=== PATIENT | female | born 1975 | race Caucasian/White ===

== ENCOUNTER → 2017-12-18 19:05 | Outpatient (CLI) | payer BC, SELFPAY | PROVIDERS: Visit Provider Otolaryngology Otolaryngology/Facial Plastic Surgery | DX: J32.9 Chronic sinusitis, unspecified (principal) | CPT/HCPCS: 87070; 87205 ==

== ENCOUNTER 2018-03-30 20:46 | Emergency (ER) | payer BC, SELFPAY ==
[2018-03-30 20:46] VITALS: BP 130/72; PULSE 76; RESP 18; TEMP 36.6; O2SAT 99; BMI 21.2
--- NOTE | 2018-03-30 22:30 | ED.VISSUMM ---
- ER Visit Summary Date of Service: 03/30/18 Chief Complaint: Dental pain History of Present Illness: The patient is a 42 F with a dental extraction performed on March 21 at the [facility]. Patient states she has had pain since that time. She started taking some amoxicillin that she had left over at home 5 days ago. She presents with continued pain and foul taste in her mouth. She has not gone back to see her dentist. Patient believes that she has dry socket. Physical Examination: Vital signs are unremarkable. Head and neck examination reveals no obvious facial edema or erythema. Intraoral examination reveals left mandibular area near the first premolar site with a recent extraction. There is a very small opening remaining to the gumline. There is mild edema and no significant erythema. There is no drainage. She has no trismus. There is no submandibular fullness or evidence of abscess. She has a strong voice and is tolerating secretions well. Trachea is midline with no cervical lymphadenopathy appreciated. Heart is regular rate and rhythm without murmur. Lung sounds are clear. Test Results: [] Emergency Department Course and Treatment: At this time the extraction site is not large enough for dry socket paste. It appears to be healing well. She will be switched to clindamycin and will be given a home pack of [place] only. Following this she can continue Tylenol and ibuprofen. She is to follow-up with the dental clinic on Monday. Treatment Plan: [] Disposition: Discharge Impression: Odontalgia This note was generated with [employer] dictation software. It may contain incorrect words, spelling, and punctuation that were not noted in review of the chart prior to signing ED Disposition - Plan for ED Patient: Disposition: Home or Assisted Living Chief Complaint: Dental Instructions: ED Tooth Pain Prescriptions: Clindamycin [Cleocin] 300 mg PO 4X/DAY #80 capsule Referrals: Tana Mcclain [NON-STAFF] - 2 Days Additional Instructions: Follow-up with the dental clinic on Monday.
--- NOTE | 2018-03-30 22:33 | DCINST.ED_ITS ---
ED Disposition - Plan for ED Patient: Disposition: Home or Assisted Living Chief Complaint: Dental Instructions: ED Tooth Pain Prescriptions: Clindamycin [Cleocin] 300 mg PO 4X/DAY #80 capsule Referrals: Tana Mcclain [NON-STAFF] - 2 Days Additional Instructions: Follow-up with the dental clinic on Monday.
[2018-03-30 22:49] VITALS: BP 116/70; PULSE 80; RESP 14; O2SAT 99
[2018-03-30] MEDS: Clindamycin HCl 150 MG Capsule 300 MG PO (22:56)
[2018-03-30] MEDS: HYDROcodone Bitartrate/Apap 5/325 Tablet PO (22:56)
== END 2018-03-30 22:58 | disposition home or self-care (01) ==
PROVIDERS: Emergency Provider Emergency Medicine; Family Provider Family Medicine; PCP Family Medicine
DX: K08.89 Other specified disorders of teeth and supporting structures (principal); Z98.818 Other dental procedure status; Z87.442 Personal history of urinary calculi; Z90.710 Acquired absence of both cervix and uterus; Z72.0 Tobacco use
CPT/HCPCS: 99282

== ENCOUNTER 2019-04-08 19:11 | Emergency (ER) | payer BC, SELFPAY ==
[2019-04-08] VITALS (7 sets, daily range): BP systolic 127–136; BP diastolic 80–81; PULSE 80–84; RESP 15–18; TEMP 36.4–36.9; O2SAT 96–97; BMI 21.1
--- NOTE | 2019-04-08 19:27 | ED.DCSUM_ITS ---
History of Present Illness Chief Complaint: Flank Pain Informant: Patient Onset: Days - Approximately 4 days ago Context: Sudden Onset Timing: Continuous - Continuous central low back pain, Intermittent - Initially Quality: Pain Location: Central low back Current Severity: Mild Maximum Severity: Moderate Worsened by: Movement Relieved by: Nothing Associated Symptoms: Nausea, vomiting, dysuria, frequency and hematuria Narrative: Patient is a 43-year-old woman with history of renal/ureteral calculi in the past. She was sent from urgent care because of concern for ureteral calculi. She reports urinary symptoms are several days ago. She now complains of bilateral central low back pain. Movement causes the pain to be worse. She denies fever, chills night sweats. She has had nausea and vomiting. She states she does not feel well. There is no history of trauma. She is status post hysterectomy. Prior similar symptoms: Yes - Kidney infection Recent Illness/Hospitalization: No - Past Medical History (1) History of ureterolithiasis Status: Acute (2) History of hyperactive airway disease Status: Acute Past Medical History - Allergies and Home Meds Allergies/Adverse Reactions: Allergies bupropion HCl [From Wellbutrin] Adverse Reaction (Verified 04/08/19 19:13) Other doxycycline Adverse Reaction (Verified 04/08/19 19:13) Other tramadol Adverse Reaction (Verified 04/08/19 19:13) Other Primary Care Physician: Scott Gann III, MD [Primary Care Provider] - Prior records reviewed: Yes Surgical History: hysterectomy Lives: Spouse/ Significant Other Smoking Status: Current every day smoker Alcohol: Occasional Drugs: None Review of Systems General: Reports: Chills, Fever, Subjective Eyes: Denies: Visual changes - bilaterally, Blurred Vision - bilaterally ENT: Denies: Bilateral ear pain, Rhinorrhea, Sore throat Cardiovascular: Denies: Chest pain, Palpitations Respiratory: Denies: Dyspnea, Cough, Sputum, Dyspnea on exertion Gastrointestinal: Reports: Abdominal pain, Nausea, Vomiting. Denies: Diarrhea, Constipation, Melena, Hematochezia Genitourinary: Reports: Dysuria, Hematuria, Frequency, -, - Musculoskeletal: Reports: Back pain. Denies: Myalgias, Arthralgias, Neck pain, Swelling, Extremity Pain Neurological: Reports: Weakness. Denies: Headache, Parasthesia, Numbness Endocrine: Denies: Polyuria, Polydipsia Hematologic: Denies: Easy bruising, Easy bleeding Allergy: Denies: Uticaria Physical Exam Vital Signs/Narrative: Vital Signs Temp Pulse Resp BP Pulse Ox 04/08/19 19:13 97.5 F L 84 18 136/81 H 96 Inital Vital Signs reviewed: Yes General: Well nourished, Well developed, - - Appears ill but not toxic Head: Normocephalic, Atraumatic Eyes: Perrl, EOMI. Negative for: Pale conjunctiva, Scleral icterus, - ENT: Moist mucous membranes, No rhinorrhea Cardiovascular: Regular rate, Regular rhythm, No murmurs, Normal S1, Normal S2 Respiratory: No distress, CTA bilaterally Abdomen: Soft, Nondistended, Normal bowel sounds, No masses, Tender - Suprapubic region. Negative for: Hepatomegaly, Splenomegaly, Mass, Pulsatile mass, Ventral hernia, Inguinal hernia, Psoas sign, Obturator sign, Rovsig's sign Rectal: Deferred Back: Normal Inspection. Negative for: Nontender, CVA tenderness, Spinal tenderness Extremities: Nontender, No edema Skin: Normal color, No rash Neurological: Alert, Oriented x3, Cranial nerves II-XII grossly intact, Normal Strength, Normal Sensation, Normal Gait Psychological: Normal affect, Normal Mood Diagnostic/Tx/Re-eval Laboratory Results 04/08/19 04/08/19 04/08/19 19:31 19:31 20:05 WBC 13.1 H RBC 4.46 Hgb 14.8 Hct 43.9 MCV 98.4 MCH 33.2 H MCHC 33.7 RDW 13.0 RDW Differential 47.2 H Plt Count 174 MPV 13.3 H Immature Gran % (Auto) 0.200 Neut % (Auto) 60.9 Lymph % (Auto) 29.5 [place] % (Auto) 6.6 Eos % (Auto) 2.5 Baso % (Auto) 0.3 Absolute Neuts (auto) 8.0 H Absolute Lymphs (auto) 3.86 Total Counted Not Reportable Sodium 139 Potassium 4.5 Chloride 108 H Carbon Dioxide 25.0 Anion Gap 6 BUN 13 Creatinine 0.82 Estim Creat Clear Calc 77.96 Est GFR (MDRD) Af Amer 96 Est GFR (MDRD) Non-Af 80 BUN/Creatinine Ratio 15.8 Glucose 118 H Calcium 9.5 Urine Color Yellow Urine Clarity Sl. Cloudy Urine pH 6.5 Ur Specific [place] 1.015 Urine Protein Negative Urine Glucose (UA) Normal Urine Ketones Negative Urine Occult Blood 250 H Urine Nitrite Negative Urine Bilirubin Negative Urine Urobilinogen Normal Ur Leukocyte Esterase Negative Urine RBC 0-5 SEEN Urine WBC 0-5 SEEN Ur Squamous Epith Cells 0-5 SEEN Urine Bacteria RARE Fine Granular Casts 0-5 SEEN Urine Mucus 0 SEEN - Medical Decision Making With complaint of dysuria, frequency and hematuria that started 4 to 5 days ago and suprapubic discomfort and low back pain suspect cystitis. This may represent subclinical pyelonephritis. Doubt ureterolithiasis. IV was established. She was treated with Zofran for her nausea and vomiting and Toradol for her pain. Basic metabolic panel, CBC and UA were obtained. Patient was questioned regarding burning with urination. She she reports I feel like I have burning. She denies vaginal discharge. She denies vaginal lesion. UA is unremarkable. Patient was reexamined and she has mild lateral paralumbar discomfort with palpation. Movement causes her pain. She has no neurovascular findings. No radicular pain. Negative straight leg test. Gait observed no foot drop. Will treat with oral analgesics. ED Disposition - Plan for ED Patient: Disposition: Home or Assisted Living Diagnosis: Acute midline low back pain without sciatica Instructions: ED Low Back Pain Injury Prescriptions: Hydrocodone Bitart/Apap 5-325 [[place] 5MG-325MG] 1 tab PO Q6H PRN PRN 3 Days #10 tab PRN Reason: Pain Naproxen [Naprosyn] 500 mg PO BID #14 tab Referrals: Scott Gann III, MD [Primary Care Provider] - 1 Week if not improving
[2019-04-08] MEDS: 0.9% Normal Saline 1,000 ML 250 ML IV (19:32)
[2019-04-08] MEDS: Ondansetron 4 MG/2 ML Vial IV (19:32)
[2019-04-08] MEDS: Ketorolac 30 MG/ML Syringe 15 MG IV (19:32)
[2019-04-08 19:52] LABS: Absolute Lymphocyte Count 3.86 X10^3/ul (0.83-4.51); Basophil# 0.04 X10^3/uL; Basophil% 0.3 % (0-1); Eosinophil# 0.33 X10^3/uL; Eosinophils% 2.5 % (0-5); Hematocrit 43.9 % (37-47); Hemoglobin 14.8 g/dl (12.0-15.0); Lymphocyte # 3.86 X10^3/ul (4.0); Lymphocyte % 29.5 % (19-41); Mean Corp Hgb Conc 33.7 g/gl (32-36); Mean Corpuscular Hgb 33.2 pg (27.0-32.0); Mean Corpuscular Volume 98.4 fL (81-99); Mean Platelet Vol. 13.3 fl (6.2-12.0); Monocyte# 0.86 X10^3/uL; Monocyte% 6.6 % (0-10); Neutrophil # 7.97 X10^3/uL (2.7-7.7); Neutrophil % 60.9 % (47-70); Platelet Count 174 K/mm3 (150-450); RBC Distribution Width SD 47.2 fl (35.1-43.9); Red Blood Count 4.46 M/mm3 (4.2-5.4); White Blood Count 13.1 K/mm3 (4.4-11.0)
[2019-04-08 19:53] LABS: POSITIVE COUNT NO; POSITIVE DIFFERENTIAL NO; POSITIVE MORPHOLOGY NO
[2019-04-08 20:00] LABS: Anion Gap 6 (5-15); BUN 13 mg/dL (7-18); BUN/Creat Ratio 15.8 RATIO (10-20); Calcium,Total 9.5 mg/dL (8.5-10.1); Chloride 108 mmol/L (98-107); Creatinine, Serum 0.82 mg/dL (0.55-1.02); EST Glomerular Filtration Rate 80 mL/min (>60); Est Glom Filt Rate - Afr Amer 96 mL/min (>60); Estimated Creatinine Clearance 77.96 ml/min; Glucose 118 mg/dL (74-106); Potassium 4.5 mmol/L (3.5-5.1); Sodium Level 139 mmol/L (136-145)
[2019-04-08 20:33] LABS: Mucous, Urine 0 SEEN /hpf (<or=2+)
[2019-04-08 21:02] LABS: Color, Urine Yellow (Yellow); Glucose, Dipstick Normal (Normal); Ketone-Dipstick Negative (Negative); Leukocyte Esterase-Dipstick Negative /ul (Negative); Nitrite-Dipstick Negative (Negative); Occult Blood-Urine 250 /ul (Negative); Protein-Dipstick Negative (Negative); Specific Gravity, Urine 1.015 (1.002-1.030); Urine Bilirubin Dipstick Negative (Negative); Urine Clarity Sl. Cloudy (Clear); Urine Urobilinogen Normal (Normal); Urine pH 6.5 (5.0 - 8.0)
[2019-04-08 21:04] LABS: Squamous Epithelial Cells - UA 0-5 SEEN /hpf (5-10)
[2019-04-08] MEDS: Morphine 4 MG/ML Syringe IV (21:06)
[2019-04-08 21:07] LABS: Fine Granular Cast- Urine 0-5 SEEN /lpf (0-5)
[2019-04-08 21:08] LABS: Bacteria RARE /hpf (None Seen); White Blood Cells 0-5 SEEN /hpf (0-5)
[2019-04-08 21:09] LABS: Red Blood Cells-Urine 0-5 SEEN /hpf (0-5)
== END 2019-04-08 22:00 | disposition home or self-care (01) ==
PROVIDERS: Emergency Provider Emergency Medicine; Family Provider Family Medicine; PCP Family Medicine
DX: M54.5 Low back pain (principal); R11.2 Nausea with vomiting, unspecified; R30.0 Dysuria; R31.9 Hematuria, unspecified; R35.0 Frequency of micturition; R10.9 Unspecified abdominal pain; R53.1 Weakness; Z87.442 Personal history of urinary calculi; F17.200 Nicotine dependence, unspecified, uncomplicated
CPT/HCPCS: 80048; 81001; 85025; 96361; 96374; 96375; 99283; J7030; A4216; J2405

== ENCOUNTER 2021-08-26 20:05 | Emergency (ER) | payer BC, SELFPAY ==
[2021-08-26 20:06] VITALS: BP 160/96; PULSE 96; RESP 16; TEMP 36.6; O2SAT 97; BMI 20.6
[2021-08-26 20:25] VITALS: O2SAT 97
--- NOTE | 2021-08-26 20:30 | RAD_ITS ---
INDICATION: cough EXAMINATION/TECHNIQUE: X-RAY - XR Chest 1 View COMPARISON: None. FINDINGS: LINES/DEVICES: None. LUNGS: Symmetric normal lung volumes. No airspace opacity or abnormal interstitial pattern. No nodule or mass. No pleural effusion or pneumothorax. MEDIASTINUM AND CARDIOVASCULAR STRUCTURES: Normal size and contour of the cardiomediastinal silhouette. No evidence of pulmonary vascular congestion. BONES AND SOFT TISSUES: No abnormality within limits of the exam. RAD/Chest 1 View (Portable) IMPRESSION: 1. No radiographic evidence of acute cardiopulmonary disease. Electronically Signed: Thom Cristina DO at 21:47 EDT Tel , Service support ,
[2021-08-26] MEDS: 0.9% Normal Saline 1,000 ML 999 ML IV (20:49)
[2021-08-26] MEDS: dexAMETHasone 10 MG/ML Vial IV (20:49)
[2021-08-26 20:50] LABS: Absolute Lymphocyte Count 2.64 X10^3/uL (0.83-4.51); Absolute Neutrophil Count 2.7 X10^3/uL (2.0-7.7); Basophil# 0.03 X10^3/uL; Basophil% 0.5 % (0-1); Eosinophil# 0.18 X10^3/uL; Hematocrit 44.2 % (37-47); Hemoglobin 14.6 g/dL (12.0-15.0); Lymphocyte # 2.64 X10^3/ul (0.83-4.51); Lymphocyte % 43.8 % (19-41); Mean Corpuscular Hgb 34.4 pg (27.0-32.0); Mean Platelet Vol. 11.4 fl (6.2-12.0); Monocyte% 8.3 % (0-10); NRBC Flagged by Analyzer 0 % (0-5); Neutrophil # 2.65 X10^3/uL (2.7-7.7); Neutrophil % 43.9 % (47-70); Platelet Count 133 K/mm3 (150-450); RBC Distribution Width CV 13.2 % (11.6-14.6); RBC Distribution Width SD 50.1 fl (35.1-43.9); Red Blood Count 4.25 M/mm3 (4.2-5.4)
[2021-08-26 21:02] LABS: Anion Gap 6 (5-15); BUN 5 mg/dL (7-18); BUN/Creat Ratio 10.7 RATIO (10-20); Calcium,Total 8.2 mg/dL (8.5-10.1); Chloride 113 mmol/L (98-107); Creatinine, Serum 0.47 mg/dL (0.55-1.02); EST Glomerular Filtration Rate 152 mL/min (>60); Est Glom Filt Rate - Afr Amer 183 mL/min (>60); Estimated Creatinine Clearance 131.39 ml/min; Glucose 113 mg/dL (74-106); Potassium 3.6 mmol/L (3.5-5.1); Sodium Level 143 mmol/L (136-145)
--- NOTE | 2021-08-26 21:06 | EDS_ITS ---
HPI History of Present Illness Chief Complaint: Shortness of Breath Narrative Narrative: Patient is a 45-year-old female who states for the past week she has had mild congestion and cough with upset stomach such as loose stool diarrhea as well as increased muscle aches and fatigue. She states that she was tested in urgent care recently and is positive for Covid. She feels like her symptoms are worsening and secondary to this comes in for evaluation PFSH PFS Home Medications albuterol sulfate [Ventolin Hfa (SP)] 2 puff INHALATION Q4H PRN PRN 01/28/17 [History Last Taken Unknown] hydroxyzine HCl 25 mg PO PRN PRN 04/08/19 [History Last Taken Unknown] naproxen 500 mg PO BID #14 tab 04/08/19 [Rx Last Taken Unknown] omeprazole 20 mg PO DAILY 04/08/19 [History Last Taken Unknown] dexamethasone [Decadron] 6 mg PO DAILY #10 tab 08/26/21 [Rx Last Taken Unknown] hydrocodone-homatropine [Hycodan (with homatropine)] 5 ml PO Q6H PRN 7 Days #140 ml 08/26/21 [Rx Last Taken Unknown] Allergy/AdvReac Type Severity Reaction Status Date / Time bupropion HCl AdvReac Other Verified 04/08/19 19:13 [From Wellbutrin] doxycycline AdvReac Other Verified 04/08/19 19:13 tramadol AdvReac Other Verified 04/08/19 19:13 Social History Smoking Status: Current every day smoker tobacco type: cigarettes ROS ROS ED Constitutional Constitutional ED: Denies chills or fever(s) ENT ENT ED: Reports rhinorrhea and sore throat Cardiovascular Cardiovascular: Denies chest pain Respiratory/Chest Respiratory/Chest: Reports cough and dyspnea Gastrointestinal Gastrointestinal: Reports diarrhea and nausea; Denies abdominal pain or vomiting Genitourinary Genitourinary ED: Denies dysuria Musculoskeletal Musculoskeletal: Reports myalgias Integumentary Denies rash Neurologic Neurologic: Reports headache(s) Hematologic/Lymphatic Hematologic/Lymphatic: Denies easy bleeding or easy bruising EXAM Physical Exam Const Vital Signs: 08/26/21 20:06 08/26/21 20:25 Temperature 97.8 F Temperature Source Temporal Pulse Rate 96 Respiratory Rate 16 Respiratory Effort Non-Labored Short of Breath Blood Pressure 160/96 H Blood Pressure Mean 117 Pulse Ox 97 Oxygen Delivery Method Room Air Room Air Positive well nourished and well developed General Appearance ED: well developed HEENT HEENT Narrative: Mucous membranes are dry and tacky and there is cobblestoning present in the posterior pharynx without airway edema or compromise Eyes PERRL and EOMs intact bilaterally Neck supple Neck Narrative: Positive anterior cervical lymphadenopathy noted Resp normal respiratory effort Resp Narrative: Is are diminished throughout with faint expiratory wheeze but no signs of respiratory distress Cardio regular rate and regular rhythm GI non-tender and non-distended GI Narrative: Bowel sounds are hyperactive without voluntary guarding or rigidity Palpation: soft Extremity normal to inspection Extremity Narrative: No asymmetric edema no pitting edema negative Homans' sign bilaterally Neuro oriented x3 and CN's II-XII intact bilaterally Sensorium / Orientation: alert Motor Exam: strength 5/5 throughout Psych Mood & Affect: anxious Skin no rashes or lesions noted MDM MDM MDM Narrative Medical decision making narrative: Patient presented to the ER afebrile and in no acute respiratory distress satting 96 to 98% on room air. Her constellation of symptoms is consistent with persisting Covid and as she states that she has had some numbness and tingling as well as her current diarrhea there is concern for electrolyte disturbance and dehydration. Basic blood work was obtained which revealed no clinically significant findings and patient was given Decadron and IV normal saline. On reevaluation she is resting comfortably and her vital signs remained stable and therefore should be discharged with symptomatic care Lab Data Attestation: I reviewed the patient's lab results. Labs: Laboratory Results - last 24 hr 08/26/21 08/26/21 20:38 20:38 WBC 6.0 RBC 4.25 Hgb 14.6 Hct 44.2 MCV 104.0 H MCH 34.4 H MCHC 33.0 RDW Std Deviation 50.1 H RDW Coeff of [place] 13.2 Plt Count 133 L MPV 11.4 Immature Gran % (Auto) 0.500 Neut % (Auto) 43.9 L Lymph % (Auto) 43.8 H [place] % (Auto) 8.3 Eos % (Auto) 3.0 Baso % (Auto) 0.5 Absolute Neuts (auto) 2.7 Absolute Lymphs (auto) 2.64 Nucleated RBC % 0 Sodium 143 Potassium 3.6 Chloride 113 H Carbon Dioxide 24.0 Anion Gap 6 BUN 5 L Creatinine 0.47 L Estim Creat Clear Calc 131.39 Est GFR (MDRD) Af Amer 183 Est GFR (MDRD) Non-Af 152 BUN/Creatinine Ratio 10.7 Glucose 113 H Calcium 8.2 L Magnesium 2.0 Radiography Chest X-Ray - ED: 1 View and Read by ED Physician Diagnostic Testing: Chest x-ray shows hyperinflated lungs consistent with COPD but no infiltrate pneumothorax or pleural effusion Discharge Plan Triage Chief Complaint: Shortness of Breath ED Provider: Anjel Lara Dx/Rx/DC Orders Clinical Impression: COVID-19 Instructions: Coronavirus Disease 2019 (COVID-19): Caring for Yourself or Others Prescriptions: New dexamethasone [Decadron] 6 mg tablet 6 mg PO DAILY Qty: 10 RF: 0 hydrocodone-homatropine [Hycodan (with homatropine)] 5-1.5 mg/5 mL syrup 5 ml PO Q6H PRN (Reason: cough) 7 Days Qty: 140 RF: 0 No Action albuterol sulfate [Ventolin HFA] 1 INHALER inhaler 2 puff inhalation Q4H PRN PRN (Reason: Sob &/Or Wheezing) RF: 0 hydroxyzine HCl 25 MG tablet 25 mg PO PRN PRN (Reason: Anxiety) RF: 0 omeprazole 20 MG tablet,delayed release (DR/EC) 20 mg PO DAILY RF: 0 naproxen 500 MG tablet 500 mg PO BID Qty: 14 RF: 0 Primary Care Provider: Care Physician,No Primary Referrals: Paulo Leblanc MD [STAFF PHYSICIAN] - 3-5 Days if not improving Care Physician,No Primary [Primary Care Provider] - Disposition Disposition: Home, Self Care
[2021-08-26] MEDS: Ondansetron 4 MG/2 ML Vial IV (21:21)
[2021-08-26] MEDS: Morphine 4 MG/ML Syringe IV (21:22)
[2021-08-26 21:57] VITALS: BP 141/81; PULSE 83; RESP 18; O2SAT 97
== END 2021-08-26 22:53 | disposition home or self-care (01) ==
PROVIDERS: Emergency Provider Emergency Medicine
DX: U07.1 COVID-19 (principal); R19.7 Diarrhea, unspecified; Z79.1 Long term (current) use of non-steroidal anti-inflammatories (NSAID); Z79.52 Long term (current) use of systemic steroids; Z79.899 Other long term (current) drug therapy; F17.210 Nicotine dependence, cigarettes, uncomplicated
CPT/HCPCS: 71045; 80048; 83735; 85025; 96361; 96374; 96375; 99282; J7030; A4216; J2405

== ENCOUNTER 2021-08-31 14:36 | Emergency (ER) | payer BC, SELFPAY ==
[2021-08-31 14:37] VITALS: BP 136/98; PULSE 89; RESP 16; TEMP 36.4; O2SAT 97; BMI 20.6
--- NOTE | 2021-08-31 15:10 | EX.ED.DYSGE1 ---
HPI History of Present Illness Chief Complaint: Lower Extremity Injury Narrative Narrative: 45-year-old female presenting with nausea, vomiting, diarrhea. She states that she is able to hold down some food and fluids intermittently. She admits to abdominal cramping. She states her diarrhea is a few times a day. She has not had a fever. She denies cough or shortness of breath. Denies dysuria or hematuria. Denies vaginal complaints. Patient states she was seen previously in the ED for similar symptoms and was prescribed Hycodan syrup for her pain but she has not taken this. She is also on dexamethasone and has Zofran for home. She states Zofran does not necessarily always help. She does complain of tingling in the bilateral hands and feet. She states that she is ambulatory. 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 She does not have a history of this. She tried to call the Covid hotline to see if there was anything they could do at home and works told to call her doctor. When she called her doctor's office she was told that she needed to come directly to the emergency room. She was also told that her doctor is out today. Patient tested positive for Covid recently with the symptoms starting on the of last month. She has recently lost her sense of taste but continues to have sense of smell. She denies fevers or cough. She does describe myalgias. [facility] Medical History COVID Home Medications albuterol sulfate [Ventolin Hfa (SP)] 2 puff INHALATION Q4H PRN PRN 01/28/17 [History Last Taken Unknown] hydroxyzine HCl 25 mg PO PRN PRN 04/08/19 [History Last Taken Unknown] omeprazole 20 mg PO DAILY 04/08/19 [History Last Taken Unknown] dexamethasone [Decadron] 6 mg PO DAILY #10 tab 08/26/21 [Rx Last Taken Unknown] famotidine [Pepcid] 20 mg PO DAILY #20 tab 08/31/21 [Rx Last Taken Unknown] ondansetron [Zofran ODT] 4 mg PO Q8H PRN 08/31/21 [History Last Taken Unknown] promethazine 25 mg PO Q6H PRN PRN #20 tablet 08/31/21 [Rx Last Taken Unknown] Allergy/AdvReac Type Severity Reaction Status Date / Time bupropion HCl AdvReac Other Verified 08/31/21 14:39 [From Wellbutrin] doxycycline AdvReac Other Verified 08/31/21 14:39 tramadol AdvReac Other Verified 08/31/21 14:39 Surgical History H/O: hysterectomy Hx of tonsillectomy Social History Smoking Status: Current every day smoker tobacco type: cigarettes ROS ROS ED Constitutional Constitutional ED: Denies chills or fever(s) Eyes Eyes: Denies blurry vision or diplopia ENT ENT ED: Denies rhinorrhea or sore throat Cardiovascular Cardiovascular: Denies racing heartbeat Respiratory/Chest Respiratory/Chest: Denies cough or dyspnea Gastrointestinal Gastrointestinal: Reports nausea, vomiting and other Details: Generalized abdominal cramping Genitourinary Genitourinary ED: Denies dysuria or hematuria Musculoskeletal Musculoskeletal: Denies arthralgias or myalgias Integumentary Denies Abrasions or rash Neurologic Neurologic: Reports paresthesias and other Details: Bilateral hands and bilateral feet Psychiatric Psychiatric: Denies anxiety or depression EXAM Physical Exam Const Vital Signs: 08/31/21 14:37 08/31/21 14:47 08/31/21 18:29 Temperature 97.6 F L Temperature Source Temporal Pulse Rate 89 86 Respiratory Rate 16 16 Respiratory Effort Normal Respiratory Pattern Normal Blood Pressure 136/98 H 118/83 H Blood Pressure Mean 110 Pulse Ox 97 98 Oxygen Delivery Method Room Air Positive well nourished General Appearance ED: NAD; Negative for pallor HEENT Reports moist mucous membranes Negative for trauma Eyes PERRL and EOMs intact bilaterally General Eye ED: Negative for pale conjunctiva or scleral icterus GI Inspection: Negative for abdominal distention Auscultation: hyperactive bowel sounds Palpation: soft Back/Spine no CVA tenderness Extremity normal to inspection Extremity Narrative: Radial pulses and pedal pulses 2+ bilaterally. Brisk cap refill to all fingers and toes. Handgrips 5/5 bilaterally. No sensory deficits noted. Neuro oriented x3, CN's II-XII intact bilaterally and no sensory deficits noted Sensorium / Orientation: alert Motor Exam: strength 5/5 throughout Psych mental status grossly normal Skin no rashes or lesions noted General Skin Exam: Negative for jaundice or pallor Rashes: No rashes noted MDM MDM MDM Narrative Medical decision making narrative: Patient presenting with nausea, vomiting, diarrhea. She status post Covid for weeks. She has been evaluated in ER couple of times. She tried to go to her primary care provider and was sent to the emergency room. She states that she is able to hold down some food and fluids. She is not had any fever. She is on steroids currently taking ibuprofen and she feels this may be messing up her stomach. Her blood work today shows she has a slight leukocytosis of 13.6 however she has been vomiting and has been on dexamethasone. Her hemoglobin is elevated at 16.1. Renal function and electrolytes are normal with exception of potassium of 3.4. Lipase and LFTs are normal. Urinalysis negative for infection. She was given IV fluids and 2 doses of morphine and she feels improved. She was also given Pepcid via IV as well as a GI cocktail. Her biggest complaint today is that she has neuropathy in her hands and feet although she has strength, sensation, pulses, brisk cap refill bilaterally in the hands and feet. I did speak with Dr. Brumfield who is on-call for her primary care physician and discussed the case at length with him. I did state that she has had at least 3 work-ups in the emergency room and she is outside of quarantine for Covid and her biggest complaint is her neuropathies and that she is not be able to get into the office because she keeps getting sent to the emergency room. He did state that he was told that she was not holding down any food or fluids and had been having extreme diarrhea episodes. I did report to him that that is not the case and that her blood work looked fine. Her abdominal pain is likely due to being on the steroids which I do not believe she needs because she is not hypoxic. She is also counseled to discontinue NSAIDs. Patient can take Tylenol and Pepcid for her stomach. She is also on a PPI at home which she started this week. Dr. Brumfield stated that he will try to get her in the office in the next couple of days for her peripheral neuropathies which are new since she has had Covid. Impression: 1. History of COVID-19 2. Nausea vomiting diarrhea 3. Peripheral neuropathies Lab Data Attestation: I reviewed the patient's lab results. Labs: Laboratory Results - last 24 hr 08/31/21 08/31/21 08/31/21 15:20 15:20 16:17 WBC 13.6 H RBC 4.59 Hgb 16.1 H Hct 44.8 MCV 97.6 D MCH 35.1 H MCHC 35.9 D RDW Std Deviation 47.2 H RDW Coeff of [place] 13.2 Plt Count 224 MPV 11.7 Immature Gran % (Auto) 2.100 H Neut % (Auto) 76.8 H Lymph % (Auto) 15.9 L [place] % (Auto) 4.8 Eos % (Auto) 0.0 Baso % (Auto) 0.4 Absolute Neuts (auto) 10.5 H Absolute Lymphs (auto) 2.17 Nucleated RBC % 0 Sodium 141 Potassium 3.4 L Chloride 107 Carbon Dioxide 22.0 Anion Gap 12 BUN 6 L Creatinine 0.61 Estim Creat Clear Calc 101.23 Est GFR (MDRD) Af Amer 134 Est GFR (MDRD) Non-Af 111 BUN/Creatinine Ratio 9.8 L Glucose 147 H Calcium 9.3 Total Bilirubin 0.20 AST 16 ALT 25 Alkaline Phosphatase 53 Total Protein 6.8 Albumin 3.1 L Globulin 3.7 Albumin/Globulin Ratio 0.8 L Lipase 227 Urine Color Yellow Urine Clarity Clear Urine pH 6.5 [address] [place] 1.005 Urine Protein Negative Urine Glucose (UA) Normal Urine Ketones Negative Urine Occult Blood 25 H Urine Nitrite Negative Urine Bilirubin Negative Urine Urobilinogen Normal Ur Leukocyte Esterase Negative Urine RBC 0 SEEN Urine WBC 0 SEEN Ur Squamous Epith Cells 0 SEEN Urine Bacteria RARE Urine Mucus 0 SEEN Discharge Plan Triage Chief Complaint: Lower Extremity Injury ED Provider: Wilfred Lang Dx/Rx/DC Orders Instructions: ED Diarrhea, Viral (Adult), ED Vomiting (Adult) Prescriptions: New promethazine 25 mg tablet 25 mg PO Q6H PRN PRN (Reason: Nausea) Qty: 20 RF: 0 famotidine [Pepcid] 20 mg tablet 20 mg PO DAILY Qty: 20 RF: 0 No Action albuterol sulfate [Ventolin HFA] 1 INHALER inhaler 2 puff inhalation Q4H PRN PRN (Reason: Sob &/Or Wheezing) RF: 0 hydroxyzine HCl 25 MG tablet 25 mg PO PRN PRN (Reason: Anxiety) RF: 0 omeprazole 20 MG tablet,delayed release (DR/EC) 20 mg PO DAILY RF: 0 dexamethasone [Decadron] 6 mg tablet 6 mg PO DAILY Qty: 10 RF: 0 ondansetron [Zofran ODT] 4 mg Tablet,Disintegrating 4 mg PO Q8H PRN (Reason: Nausea) RF: 0 Primary Care Provider: Liborio Arceo Referrals: Liborio Arceo MD [Primary Care Provider] - Disposition Disposition: Home, Self Care Discharge Date/Time: 08/31/21 18:30
[2021-08-31] MEDS: Morphine 4 MG/ML Syringe IV ×2 (15:21→17:01)
[2021-08-31] MEDS: proMETHazine 25 MG Tablet PO (15:22)
[2021-08-31] MEDS: 0.9% Normal Saline 1,000 ML 999 ML IV (15:22)
[2021-08-31 15:36] LABS: Absolute Lymphocyte Count 2.17 X10^3/uL (0.83-4.51); Absolute Neutrophil Count 10.5 X10^3/uL (2.0-7.7); Basophil# 0.06 X10^3/uL; Basophil% 0.4 % (0-1); Hematocrit 44.8 % (37-47); Hemoglobin 16.1 g/dL (12.0-15.0); Lymphocyte # 2.17 X10^3/ul (0.83-4.51); Lymphocyte % 15.9 % (19-41); Mean Corp Hgb Conc 35.9 g/dL (32-36); Mean Corpuscular Hgb 35.1 pg (27.0-32.0); Mean Corpuscular Volume 97.6 fL (81-99); Mean Platelet Vol. 11.7 fl (6.2-12.0); Monocyte# 0.65 X10^3/uL; Monocyte% 4.8 % (0-10); NRBC Flagged by Analyzer 0 % (0-5); Neutrophil # 10.46 X10^3/uL (2.7-7.7); Neutrophil % 76.8 % (47-70); Platelet Count 224 K/mm3 (150-450); RBC Distribution Width CV 13.2 % (11.6-14.6); RBC Distribution Width SD 47.2 fl (35.1-43.9); Red Blood Count 4.59 M/mm3 (4.2-5.4); White Blood Count 13.6 K/mm3 (4.4-11.0)
[2021-08-31 15:58] LABS: ALB/GLOB Ratio 0.8 RATIO (0.9-2.4); AST(SGOT) 16 U/L (15-37); Alanine Aminotransfer ALT/SGPT 25 U/L (13-56); Albumin, Serum 3.1 g/dL (3.2-5.0); Alkaline Phosphatase 53 U/L (45-117); Anion Gap 12 (5-15); BUN 6 mg/dL (7-18); BUN/Creat Ratio 9.8 RATIO (10-20); Calcium,Total 9.3 mg/dL (8.5-10.1); Chloride 107 mmol/L (98-107); Creatinine, Serum 0.61 mg/dL (0.55-1.02); EST Glomerular Filtration Rate 111 mL/min (>60); Est Glom Filt Rate - Afr Amer 134 mL/min (>60); Estimated Creatinine Clearance 101.23 ml/min; Globulin 3.7 g/dL (2.2-4.2); Glucose 147 mg/dL (74-106); Lipase 227 U/L (73-393); Potassium 3.4 mmol/L (3.5-5.1); Protein, Total 6.8 g/dL (6.4-8.2); Sodium Level 141 mmol/L (136-145)
[2021-08-31] MEDS: Famotidine 200 MG/20 ML MDV 20 MG in 0.9% Normal Saline (Pres. free 8 ML 300 MG IV (16:12)
[2021-08-31] MEDS: Mag Hydrox/Al Hydrox/Simeth 30 ML UDC PO (17:02)
[2021-08-31 17:28] LABS: Mucous, Urine 0 SEEN /hpf (<or=2+); Red Blood Cells-Urine 0 SEEN /hpf (0-5); Squamous Epithelial Cells - UA 0 SEEN /hpf (5-10); White Blood Cells 0 SEEN /hpf (0-5)
[2021-08-31 17:33] LABS: Color, Urine Yellow (Yellow); Glucose, Dipstick Normal (Normal); Ketone-Dipstick Negative (Negative); Leukocyte Esterase-Dipstick Negative /ul (Negative); Nitrite-Dipstick Negative (Negative); Occult Blood-Urine 25 /ul (Negative); Protein-Dipstick Negative (Negative); Specific Gravity, Urine 1.005 (1.002-1.030); Urine Bilirubin Dipstick Negative (Negative); Urine Clarity Clear (Clear); Urine Urobilinogen Normal (Normal); Urine pH 6.5 (5.0 - 8.0)
[2021-08-31 17:45] LABS: Bacteria RARE /hpf (None Seen)
[2021-08-31 18:29] VITALS: BP 118/83; PULSE 86; RESP 16; O2SAT 98
== END 2021-08-31 18:30 | disposition home or self-care (01) ==
PROVIDERS: Emergency Provider Student in an Organized Health Care Education/Training Program; PCP Family Medicine
DX: R11.2 Nausea with vomiting, unspecified (principal); R19.7 Diarrhea, unspecified; R10.9 Unspecified abdominal pain; E11.40 Type 2 diabetes mellitus with diabetic neuropathy, unspecified; M79.10 Myalgia, unspecified site; F17.210 Nicotine dependence, cigarettes, uncomplicated; Z79.52 Long term (current) use of systemic steroids; Z79.899 Other long term (current) drug therapy; Z86.16 Personal history of COVID-19
CPT/HCPCS: 80053; 81001; 83690; 85025; 96361; 96374; 96375; 96376; 99282; J7030; A4216; J3490

== ENCOUNTER 2021-11-15 07:33 | Emergency (ER) | payer BC, SELFPAY ==
[2021-11-15 07:33] VITALS: BP 150/101; PULSE 115; RESP 16; TEMP 36.7; O2SAT 99; BMI 19.7
--- NOTE | 2021-11-15 07:44 | RAD_ITS ---
STUDY: X-RAY - LUMBAR SPINE REASON FOR EXAM: Female, 46 years old. Low back pain after lifting heavy object 2 days ago TECHNIQUE: 3 view(s) of the lumbar spine were obtained. COMPARISON: None FINDINGS: Normal lumbar lordosis. There is no substantial scoliosis. There is a normal alignment of the vertebrae. Transitional anatomy at L5. Normal vertebral bodies and endplates. Normal disc space heights except for mild narrowing at L5-S1, possibly remaining rudimentary disc. There is no demonstrated fracture. The soft tissue structures are unremarkable. RAD/Lumbar Spine 2 or 3 Views IMPRESSION: No compression fracture. Electronically Signed: Prakash Atkins MD ([place]) at 8:23 EST , Service support ,
--- NOTE | 2021-11-15 07:44 | RAD_ITS ---
EXAM: XR LEFT RIBS AND AP CHEST, 3 OR MORE VIEWS CLINICAL INDICATION: Left rib pain after lifting heavy objects 2 days ago TECHNIQUE: Frontal and oblique views of the left ribs and frontal view of the chest. This report was created using popexpert report generation technology. COMPARISON: None. FINDINGS: LUNGS AND PLEURAL SPACES: Unremarkable. No consolidation or edema. No pneumothorax. No effusion. HEART: Unremarkable. Cardiac silhouette not enlarged. MEDIASTINUM: Central airways and mediastinal contour are unremarkable. BONES/JOINTS: Unremarkable. No evidence of displaced rib fractures. RAD/Ribs Uni Min 3V w/PA Chest IMPRESSION: Negative chest and left ribs series. Electronically Signed: Prakash Atkins MD ([place]) at 8:24 EST , Service support ,
--- NOTE | 2021-11-15 07:45 | ED.VIS.BACK ---
HPI History of Present Illness Chief Complaint: Back Informant: patient Narrative Narrative: 46-year-old female states that 2 days ago she was lifting a very heavy fiberglass water fountain when she injured her back and her lower left anterior rib. She notes she has a slight cough seems to exacerbate the rib pain. She denies any radicular symptoms, bowel or bladder dysfunction, fever, or rashes. Painful range of motion. No red flag history. PFSH PFSH Medical History COVID Home Medications albuterol sulfate [Ventolin Hfa (SP)] 2 puff INHALATION Q4H PRN PRN 01/28/17 [History Last Taken Unknown] hydroxyzine HCl 25 mg PO PRN PRN 04/08/19 [History Last Taken Unknown] omeprazole 20 mg PO DAILY 04/08/19 [History Last Taken Unknown] dexamethasone [Decadron] 6 mg PO DAILY #10 tab 08/26/21 [Rx Last Taken Unknown] famotidine [Pepcid] 20 mg PO DAILY #20 tab 08/31/21 [Rx Last Taken Unknown] ondansetron [Zofran ODT] 4 mg PO Q8H PRN 08/31/21 [History Last Taken Unknown] promethazine 25 mg PO Q6H PRN PRN #20 tablet 08/31/21 [Rx Last Taken Unknown] Allergy/AdvReac Type Severity Reaction Status Date / Time bupropion HCl AdvReac Other Verified 08/31/21 14:39 [From Wellbutrin] doxycycline AdvReac Other Verified 08/31/21 14:39 tramadol AdvReac Other Verified 08/31/21 14:39 Surgical History H/O: hysterectomy Hx of tonsillectomy Social History (Updated 11/15/21 @ 07:[address] Sebastián Brand DO) current gender identity: female Smoking Status: Current every day smoker tobacco type: cigarettes ROS ROS ED Constitutional Constitutional ED: Denies chills, fever(s) or weight loss Eyes Eyes: Denies change in vision or diplopia ENT ENT ED: Reports rhinorrhea and other Details: Postnasal drip ; Denies ear pain or sore throat Cardiovascular Cardiovascular: Reports chest pain; Denies orthopnea, palpitations or racing heartbeat Respiratory/Chest Respiratory/Chest: Reports other Details: Cough ; Denies cough, dyspnea or orthopnea Gastrointestinal Gastrointestinal: Denies abdominal pain, diarrhea, nausea or vomiting Genitourinary Genitourinary ED: Denies dysuria, hematuria or urinary frequency Musculoskeletal Musculoskeletal: Reports back pain; Denies arthralgias or myalgias Integumentary Denies abscess or rash Neurologic Neurologic: Denies headache(s) or weakness Psychiatric Psychiatric: Denies anxiety, depression, suicidal ideation or suicidal thoughts Endocrine Endocrinology: Denies polydipsia, polyphagia or polyuria Allergic/Immunologic Allergic/Immunologic ED: Denies mouth swelling, tongue swelling or urticaria EXAM Physical Exam Const Vital Signs: 11/15/21 07:33 Temperature 98.0 F Temperature Source Temporal Pulse Rate 115 H Respiratory Rate 16 Blood Pressure 150/101 H Blood Pressure Mean 117 Pulse Ox 99 Oxygen Delivery Method Room Air Positive well nourished and well developed General Appearance ED: well developed HEENT Reports normocephalic, head/scalp atraumatic, TM's clear and moist mucous membranes Negative for trauma Tympanic Membrane ED: Yes TM's clear Eyes PERRL and EOMs intact bilaterally Neck no lymphadenopathy, supple and no JVD Chest Wall Chest Narrative: Tender to palpation left anterior and mid axillary line lower left ribs Resp normal respiratory effort and clear to auscultation bilaterally Cardio regular rate, regular rhythm and no murmurs GI normal to inspection, nondistended, normoactive bowel sounds and non-tender Palpation: soft Back/Spine no CVA tenderness and normal ROM Back/Spine Narrative: Patient has tenderness to palpation in the bilateral lower lumbar paraspinal musculature. No outward tissue texture changes to suggest infection. Lumbar Spine / Lower Back: ROM limited Extremity normal to inspection General Extremety ED: Negative for edema General Extremity: Negative for edema Neuro oriented x3 and CN's II-XII intact bilaterally Sensorium / Orientation: alert Motor Exam: strength 5/5 throughout Psych mental status grossly normal Mood & Affect: Negative for depressed or tearful Skin no rashes or lesions noted and no wounds Discharge Plan Triage Chief Complaint: Back ED Provider: Sebastián Brand Dx/Rx/DC Orders Clinical Impression: Acute lumbar myofascial strain, Rib cage region somatic dysfunction Instructions: ED Back Sprain/Strain, ED Chest Wall Strain (Child) Prescriptions: No Action albuterol sulfate [Ventolin HFA] 1 INHALER inhaler 2 puff inhalation Q4H PRN PRN (Reason: Sob &/Or Wheezing) RF: 0 hydroxyzine HCl 25 MG tablet 25 mg PO PRN PRN (Reason: Anxiety) RF: 0 omeprazole 20 MG tablet,delayed release (DR/EC) 20 mg PO DAILY RF: 0 dexamethasone [Decadron] 6 mg tablet 6 mg PO DAILY Qty: 10 RF: 0 ondansetron [Zofran ODT] 4 mg Tablet,Disintegrating 4 mg PO Q8H PRN (Reason: Nausea) RF: 0 promethazine 25 mg tablet 25 mg PO Q6H PRN PRN (Reason: Nausea) Qty: 20 RF: 0 famotidine [Pepcid] 20 mg tablet 20 mg PO DAILY Qty: 20 RF: 0 Primary Care Provider: Liborio Arceo Referrals: Liborio Arceo MD [Primary Care Provider] - 1 Week if not improving Disposition Disposition: Home, Self Care
[2021-11-15] MEDS: oxyCODONE 5 MG Tablet PO (08:16)
[2021-11-15] MEDS: diazePAM 5 MG Tablet PO (08:17)
[2021-11-15 09:14] VITALS: PULSE 76; RESP 18; O2SAT 97
== END 2021-11-15 09:15 | disposition home or self-care (01) ==
LOC: ED 07:57
PROVIDERS: Emergency Provider Emergency Medicine; PCP Family Medicine
DX: S39.012A Strain of muscle, fascia and tendon of lower back, initial encounter (principal); M99.08 Segmental and somatic dysfunction of rib cage; X50.0XXA Overexertion from strenuous movement or load, initial encounter; Y93.9 Activity, unspecified; Y92.9 Unspecified place or not applicable; Y99.9 Unspecified external cause status; R05.9 Cough, unspecified; J34.89 Other specified disorders of nose and nasal sinuses; F17.210 Nicotine dependence, cigarettes, uncomplicated; Z79.899 Other long term (current) drug therapy; Z86.16 Personal history of COVID-19
CPT/HCPCS: 71101; 72100; 99282

== ENCOUNTER 2022-05-03 09:10 | Emergency (ER) | payer BC, SELFPAY ==
[2022-05-03 09:11] VITALS: BP 174/101; PULSE 130; RESP 18; TEMP 36.6; O2SAT 98; BMI 21.6
--- NOTE | 2022-05-03 09:20 | EDS_ITS ---
HPI HPI - GI History of Present Illness Chief Complaint: Nausea/Vomiting Narrative Narrative: Patient presents with nausea and vomiting without diarrhea for the last 2 days. She states that she feels dehydrated and is unable to keep even water down. She has vomited multiple times in the last 24 hours without any blood in her emesis. She complains of epigastric to left upper quadrant abdominal pain. She states the last time this happened to her was in September of last year when she had COVID-19. She is not taking any medications currently. Past surgical history includes hysterectomy. She denies other symptoms except for the profuse nausea and vomiting and the feeling that she is dehydrated with dry mouth. She does complain of diffuse abdominal pain and muscle cramping. [facility] Medical History COVID Home Medications albuterol sulfate [Ventolin Hfa (SP)] 2 puff INHALATION Q4H PRN PRN 01/28/17 [History Last Taken Unknown] omeprazole 20 mg PO DAILY 04/08/19 [History Last Taken Unknown] famotidine [Pepcid] 20 mg PO DAILY #20 tab 08/31/21 [Rx Last Taken Unknown] ondansetron [Zofran ODT] 4 mg PO Q8H PRN 08/31/21 [History Last Taken Unknown] diazepam 5 mg PO Q8 PRN #12 tab 11/15/21 [Rx Last Taken Unknown] hydrocodone-acetaminophen 1 tab PO Q6H PRN PRN 3 Days #10 tablet 11/15/21 [Rx Last Taken Unknown] promethazine 25 mg PO Q6H PRN #14 tab 05/03/22 [Rx Last Taken Unknown] Allergy/AdvReac Type Severity Reaction Status Date / Time bupropion HCl AdvReac Other Verified 05/03/22 09:12 [From Wellbutrin] doxycycline AdvReac Other Verified 05/03/22 09:12 tramadol AdvReac Other Verified 05/03/22 09:12 Surgical History H/O: hysterectomy Hx of tonsillectomy Social History Smoking Status: Current every day smoker tobacco type: cigarettes ROS ROS ED ROS Narrative Constitutional: No fever, no chills. Dehydrated HEENT: No sore throat. No neck pain. No loss of vision. No rhinorrhea. Dry m outh. Cardiovascular: No chest pain. No palpitations. No pedal edema. Respiratory: No cough, no shortness of breath. Abdominal: Epigastric to left upper quadrant abdominal pain. Positive nausea. Multiple episodes of nonbloody vomiting. No diarrhea. Genitourinary: No dysuria. No hematuria. Musculoskeletal: Diffuse myalgias. No arthralgias. Neurologic: No headaches. No dizziness. No lightheadedness. Skin: No rash. No change in color. Psychiatric: No depression. No anxiety. EXAM Physical Exam Narrative Exam Narrative: Afebrile. Vital signs noted. HEENT: Normocephalic. Atraumatic. PERRL, EOMI. Neck soft and supple. No point tenderness or step off. Cardiovascular: Regular tachycardia no murmurs, rubs, or gallops appreciated. Respiratory: No tachypnea. Lungs clear to auscultation bilaterally. Gastrointestinal: Abdomen soft, with tenderness to palpation in the epigastrium to left upper quadrant, with normoactive bowel sounds. No rebound or guarding. Neurological: Awake. Alert. Nonfocal, nonlateralizing. Skin: No rash. Normal color. No pallor. Musculoskeletal: No pedal edema. Full range of motion extremities. Const Vital Signs: 05/03/22 09:11 Temperature 98 F Temperature Source Temporal Pulse Rate 130 H Respiratory Rate 18 Blood Pressure 174/101 H Blood Pressure Mean 125 Pulse Ox 98 Oxygen Delivery Method Room Air [facility] [place] Narrative Medical decision making narrative: Patient will be bolused IV fluids and administered ondansetron for her nausea and vomiting. We will obtain a CBC, CMP, and lipase along with urinalysis to look for dehydration. CBC shows slightly elevated white count of 13.2 which I think is demargination from her vomiting. Platelet count normal at 173, hemoglobin slightly hemoconcentrated at 16.7. CMP is remarkable for a chloride of 108 a BUN of 6 and a normal creatinine of 0.59. LFTs are elevated at 127 and 102 with her AST and ALT which I think is nonspecific. Lipase normal at 225. Urinalysis shows no evidence of infection but there are 50 ketones. Upon repeat examination she is feeling improved. She asked the RN for coffee, but I do not think this is a calderon choice that she may have more gastritis/duodenitis. She states that she takes Pentasa prole as needed. I directed her to take this daily and follow-up with gastroenterology. At this point in time, I feel she be discharged safely home with follow-up. Return instructions to the emergency department were reviewed. Disposition is discharged home in stable condition. Lab Data Attestation: I reviewed the patient's lab results. Labs: Laboratory Results - last 24 hr 05/03/22 05/03/22 05/03/22 09:25 09:25 09:47 WBC 13.2 H RBC 4.69 Hgb 16.7 H Hct 46.7 MCV 99.6 H MCH 35.6 H MCHC 35.8 RDW Std Deviation 49.0 H RDW Coeff of Ashanti 13.3 Plt Count 173 MPV 12.0 Immature Gran % (Auto) 0.500 Neut % (Auto) 74.9 H Lymph % (Auto) 16.7 L Fleming % (Auto) 7.3 Eos % (Auto) 0.1 Baso % (Auto) 0.5 Absolute Neuts (auto) 9.9 H Absolute Lymphs (auto) 2.21 Nucleated RBC % 0 Sodium 139 Potassium 5.0 Chloride 108 H Carbon Dioxide 20.0 L Anion Gap 11 BUN 6 L Creatinine 0.59 Estim Creat Clear Calc 104.93 Est GFR (MDRD) Af Amer 139 Est GFR (MDRD) Non-Af 115 BUN/Creatinine Ratio 10.2 Glucose 89 Calcium 9.4 Total Bilirubin 0.70 AST 127 H ALT 102 H Alkaline Phosphatase 54 Total Protein 7.5 Albumin 3.9 Globulin 3.6 Albumin/Globulin Ratio 1.1 Lipase 225 Urine Color Yellow Urine Clarity Clear Urine pH 6.0 Ur Specific Union 1.015 Urine Protein 100 H Urine Glucose (UA) Normal Urine Ketones 50 H Urine Occult Blood 250 H Urine Nitrite Negative Urine Bilirubin Negative Urine Urobilinogen Normal Ur Leukocyte Esterase Negative Urine RBC 10-25 SEEN Urine WBC 0-5 SEEN Ur Squamous Epith Cells 0-5 SEEN Urine Bacteria 1+ Urine Mucus 0 SEEN Discharge Plan Triage Chief Complaint: Nausea/Vomiting ED Provider: Chato Eaton Dx/Rx/DC Orders Clinical Impression: Nausea & vomiting, Gastritis Prescriptions: New promethazine 25 mg tablet 25 mg PO Q6H PRN (Reason: nausea and vomiting) Qty: 14 RF: 0 No Action albuterol sulfate [Ventolin HFA] 1 INHALER inhaler 2 puff inhalation Q4H PRN PRN (Reason: Sob &/Or Wheezing) RF: 0 omeprazole 20 MG tablet,delayed release (DR/EC) 20 mg PO DAILY RF: 0 ondansetron [Zofran ODT] 4 mg Tablet,Disintegrating 4 mg PO Q8H PRN (Reason: Nausea) RF: 0 famotidine [Pepcid] 20 mg tablet 20 mg PO DAILY Qty: 20 RF: 0 hydrocodone-acetaminophen [hydrocodone-acetaminophen] 1 TABLET tablet 1 tab PO Q6H PRN PRN (Reason: Pain) 3 Days Qty: 10 RF: 0 diazepam [diazepam] 5 MG tablet 5 mg PO Q8 PRN (Reason: Muscle Spasm) Qty: 12 RF: 0 Primary Care Provider: Liborio Arceo Referrals: Friend,DO Yunior [STAFF PHYSICIAN] - As soon as possible Liborio Arceo MD [Primary Care Provider] - 3-5 Days if not improving Disposition Disposition: Home, Self Care
[2022-05-03] MEDS: 0.9% Normal Saline 1,000 ML 1000 ML IV (09:32)
[2022-05-03] MEDS: Ondansetron 4 MG/2 ML Vial IV (09:36)
[2022-05-03 09:39] LABS: Absolute Lymphocyte Count 2.21 X10^3/uL (0.83-4.51); Absolute Neutrophil Count 9.9 X10^3/uL (2.0-7.7); Basophil# 0.07 X10^3/uL; Basophil% 0.5 % (0-1); Eosinophil# 0.01 X10^3/uL; Eosinophils% 0.1 % (0-5); Hematocrit 46.7 % (37-47); Hemoglobin 16.7 g/dL (12.0-15.0); Lymphocyte # 2.21 X10^3/ul (0.83-4.51); Lymphocyte % 16.7 % (19-41); Mean Corp Hgb Conc 35.8 g/dL (32-36); Mean Corpuscular Hgb 35.6 pg (27.0-32.0); Mean Corpuscular Volume 99.6 fL (81-99); Monocyte# 0.97 X10^3/uL; Monocyte% 7.3 % (0-10); NRBC Flagged by Analyzer 0 % (0-5); Neutrophil % 74.9 % (47-70); Platelet Count 173 K/mm3 (150-450); RBC Distribution Width CV 13.3 % (11.6-14.6); Red Blood Count 4.69 M/mm3 (4.2-5.4); White Blood Count 13.2 K/mm3 (4.4-11.0)
[2022-05-03 09:55] LABS: Mucous, Urine 0 SEEN /hpf (<or=2+)
[2022-05-03 09:56] LABS: Color, Urine Yellow (Yellow); Glucose, Dipstick Normal (Normal); Ketone-Dipstick 50 mg/dl (Negative); Leukocyte Esterase-Dipstick Negative /ul (Negative); Nitrite-Dipstick Negative (Negative); Occult Blood-Urine 250 /ul (Negative); Protein-Dipstick 100 mg/dl (Negative); Specific Gravity, Urine 1.015 (1.002-1.030); Urine Bilirubin Dipstick Negative (Negative); Urine Clarity Clear (Clear); Urine Urobilinogen Normal (Normal)
[2022-05-03 09:57] LABS: ALB/GLOB Ratio 1.1 RATIO (0.9-2.4); AST(SGOT) 127 U/L (15-37); Alanine Aminotransfer ALT/SGPT 102 U/L (13-56); Albumin, Serum 3.9 g/dL (3.2-5.0); Alkaline Phosphatase 54 U/L (45-117); Anion Gap 11 (5-15); BUN 6 mg/dL (7-18); BUN/Creat Ratio 10.2 RATIO (10-20); Calcium,Total 9.4 mg/dL (8.5-10.1); Chloride 108 mmol/L (98-107); Creatinine, Serum 0.59 mg/dL (0.55-1.02); EST Glomerular Filtration Rate 115 mL/min (>60); Est Glom Filt Rate - Afr Amer 139 mL/min (>60); Estimated Creatinine Clearance 104.93 ml/min; Globulin 3.6 g/dL (2.2-4.2); Glucose 89 mg/dL (74-106); Lipase 225 U/L (73-393); Protein, Total 7.5 g/dL (6.4-8.2); Sodium Level 139 mmol/L (136-145)
[2022-05-03 10:02] LABS: Bacteria 1+ /hpf (None Seen); Red Blood Cells-Urine 10-25 SEEN /hpf (0-5); Squamous Epithelial Cells - UA 0-5 SEEN /hpf (5-10); White Blood Cells 0-5 SEEN /hpf (0-5)
== END 2022-05-03 12:11 | disposition home or self-care (01) ==
PROVIDERS: Emergency Provider Emergency Medicine; PCP Family Medicine; Visit Provider Emergency Medicine
DX: K29.70 Gastritis, unspecified, without bleeding (principal); F17.210 Nicotine dependence, cigarettes, uncomplicated; R10.84 Generalized abdominal pain; Z86.16 Personal history of COVID-19
CPT/HCPCS: 80053; 81001; 83690; 85025; 96361; 96374; 99283; J7030; A4216; J2405

== ENCOUNTER 2022-05-28 20:52 | Emergency (ER) | payer BC, SELFPAY ==
[2022-05-28 20:53] VITALS: BP 174/104; PULSE 100; RESP 15; TEMP 36.6; O2SAT 99; BMI 19.1
--- NOTE | 2022-05-28 21:26 | EDS_ITS ---
HPI History of Present Illness Chief Complaint: Eye Problem Detail of Chief Complaint: Atraumatic left thigh pain. Informant: patient Onset/Context/Timing Location: Left Eye Timing: Continuous Current Severity: Moderate Maximum Severity: Moderate Associated Symptoms Associated Symptoms - Eyes: Foreign body sensation and Pain Visual Changes: left: Blurred vision History of injury: No Visual correction: Glasses Narrative Narrative: 46-year-old female no seen past medical history. Wears glasses. Does not use contacts. Has never had eye surgery. States she went to bed last night felt fine when she woke up this morning had pain in her left eye and decreased vision. Said is very blurry. Light bothers her eye. She denies any history of recent trauma. No prior history of similar symptoms. Prior similar symptoms: No Recent Illness/Hospitalization: No PFSH PFSH Medical History COVID Home Medications albuterol sulfate 90 mcg/actuation aerosol inhaler (Ventolin HFA) 2 puff inhalation Q4H PRN PRN Sob &/Or Wheezing 01/28/17 [History Last Taken Unknown] omeprazole 20 mg tablet,delayed release 20 mg PO DAILY 04/08/19 [History Last Taken Unknown] famotidine 20 mg tablet (Pepcid) 20 mg PO DAILY #20 tabs 08/31/21 [Rx Last Taken Unknown] ondansetron 4 mg disintegrating tablet 4 mg PO Q8H PRN Nausea 08/31/21 [History Last Taken Unknown] diazepam 5 mg tablet 5 mg PO Q8 PRN Muscle Spasm #12 tabs 11/15/21 [Rx Last Taken Unknown] hydrocodone-acetaminophen 5-325mg 5mg-325mg 1 tab PO Q6H PRN PRN Pain 3 days #10 TABLETS 11/15/21 [Rx Last Taken Unknown] promethazine 25 mg tablet 25 mg PO Q6H PRN nausea and vomiting #14 tabs 05/03/22 [Rx Last Taken Unknown] Allergy/AdvReac Type Severity Reaction Status Date / Time bupropion HCl AdvReac Other Verified 05/28/22 20:53 [From Wellbutrin] doxycycline AdvReac Other Verified 05/28/22 20:53 tramadol AdvReac Other Verified 05/28/22 20:53 Surgical History H/O: hysterectomy Hx of tonsillectomy Social History Smoking Status: Current every day smoker tobacco type: cigarettes ROS ROS ED ROS Narrative No recent illness. Review of Systems ROS Unobtainable: Denies due to encephalopathy Constitutional Constitutional ED: Denies chills Eyes Eyes: Reports blurry vision ENT ENT ED: Denies ear pain Cardiovascular Cardiovascular: Denies chest pain Respiratory/Chest Respiratory/Chest: Denies cough Gastrointestinal Gastrointestinal: Denies abdominal pain Genitourinary Genitourinary ED: Denies dysuria Musculoskeletal Musculoskeletal: Denies arthralgias Integumentary Denies abscess Neurologic Neurologic: Denies headache(s) Psychiatric Psychiatric: Denies anxiety Endocrine Endocrinology: Denies polydipsia Hematologic/Lymphatic Hematologic/Lymphatic: Denies easy bleeding Allergic/Immunologic Allergic/Immunologic ED: Denies mouth swelling EXAM Physical Exam Narrative Exam Narrative: Middle-aged female no acute distress vital signs stable afebrile. H EENT exam left eye is watering. Pupils round reactive light his motions are intact. Even with the naked eye I can see she has a significant corneal abrasion over the left eye involving almost the entire pupil and iris. Extra motions are intact. Minimal swelling of the left upper and lower lid. No hordeolum. No foreign body. Tetracaine was instilled in the left eye which did give her some relief. Fluorescein and slit-lamp exam performed showed a very large corneal abrasion involving most of the iris and almost the entire pupil of the left eye. I did not see any foreign body. Or any signs of infection. Otherwise exam unremarkable. Const Vital Signs: 05/28/22 20:53 Temperature 98 F Temperature Source Oral Pulse Rate 100 Respiratory Rate 15 Blood Pressure 174/104 H Blood Pressure Mean 127 Pulse Ox 99 Oxygen Delivery Method Room Air Positive well nourished and well developed; Negative for obese, cachectic, contractures or unkempt General Appearance ED: well developed; Negative for unkempt, cachectic or contractures Nutritional Appearance: Negative for cachectic or obese HEENT atraumatic Nose: external nose normal and nares normal Neck no lymphadenopathy, supple and no JVD General: Negative for tenderness Resp normal respiratory effort, no retractions, no use of accessory muscles and clear to auscultation bilaterally Cardio regular rate, regular rhythm, S1 normal heart sound, S2 normal heart sound and no murmurs Extremity normal to inspection Neuro oriented x3 and moves all extremities Sensorium / Orientation: alert, oriented to person, oriented to place and oriented to time; Negative for orientation impaired Motor Exam: strength 5/5 throughout Psych Appearance: Negative for unkempt Attitude: No agitated Mood & Affect: Negative for depressed or anxious Skin no wounds MDM MDM MDM Narrative Medical decision making narrative: Left thigh corneal abrasion which is large. She has noticed history of any type of trauma some assuming the patient may have scratched her eye in her sleep. She does not wear contacts. Visualized easily on slit lamp exam with fluorescein. Patient be placed on bacitracin ophthalmic ointment 3 times a day. Tylenol Motrin for pain. She can use the tetracaine eyedrops just for the next 24 hours after that I told her she has to discard them because they can retard healing. Follow-up with [facility] on Monday. Discharge Plan Triage Chief Complaint: Eye Problem ED Provider: Yovanny Langford Dx/Rx/DC Orders Clinical Impression: Injury of conjunctiva and corneal abrasion of left eye w/o FB Instructions: ED Corneal Abrasion Prescriptions: No Action albuterol sulfate [Ventolin HFA] 1 INHALER inhaler 2 puff inhalation Q4H PRN PRN (Reason: Sob &/Or Wheezing) omeprazole 20 MG tablet,delayed release (DR/EC) 20 mg PO DAILY ondansetron [Zofran ODT] 4 mg Tablet,Disintegrating 4 mg PO Q8H PRN (Reason: Nausea) famotidine [Pepcid] 20 mg tablet 20 mg PO DAILY Qty: 20 0RF hydrocodone-acetaminophen [hydrocodone-acetaminophen] 1 TABLET tablet 1 tab PO Q6H PRN PRN (Reason: Pain) 3 Days Qty: 10 0RF diazepam [diazepam] 5 MG tablet 5 mg PO Q8 PRN (Reason: Muscle Spasm) Qty: 12 0RF promethazine 25 mg tablet 25 mg PO Q6H PRN (Reason: nausea and vomiting) Qty: 14 0RF Primary Care Provider: Liborio Arceo Referrals: Logan Lawson MD [STAFF PHYSICIAN] - As soon as possible (Call [facility] Monday. They will see you that morning. Tell them you have a large corneal abrasion of your left thigh and was seen in the emergency department Get you in Monday. Call them at 8 AM.) Liborio Arceo MD [Primary Care Provider] - Activity Restrictions/Additional Instructions: Sunglasses to prevent Glare. Tylenol and Motrin for pain. You have a corneal abrasion on your left eye which is pretty large. Eye ointment like to 3 times a day to prevent infection and help lubricate the eye. You may use the eyedrops I gave you just for the next 24 hours to help with the pain. After 24 hours from now so Monday night you have to discard them because long-term they can return. Call the [facility] first thing Monday at 8 or 8:30 AM. Tell them you were seen in the ER. You have a corneal abrasion noted to be seen on Monday. Disposition Disposition: Home, Self Care
[2022-05-28] MEDS: Fluorescein 1 MG STRIP 1 STRIP LEFT EYE (21:33)
[2022-05-28] MEDS: Tetracaine 0.5% Ophthalmic Bottle 1 DRP LEFT EYE (21:33)
[2022-05-28] MEDS: Neomycin/Bacitracin/Polymyxin Opth. Ointment 1 APPLIC LEFT EYE (21:49)
== END 2022-05-28 21:51 | disposition home or self-care (01) ==
PROVIDERS: Emergency Provider Emergency Medicine; PCP Family Medicine; Visit Provider Emergency Medicine
DX: S05.02XA Injury of conjunctiva and corneal abrasion without foreign body, left eye, initial encounter (principal); F17.210 Nicotine dependence, cigarettes, uncomplicated; Z97.3 Presence of spectacles and contact lenses
CPT/HCPCS: 99283

== ENCOUNTER 2022-06-16 10:41 | Emergency (ER) | payer BC, SELFPAY ==
[2022-06-16 10:43] VITALS: BP 148/101; PULSE 108; RESP 18; TEMP 36.8; O2SAT 98; BMI 20.1
--- NOTE | 2022-06-16 11:30 | EDS_ITS ---
HPI History of Present Illness Chief Complaint: Weakness Informant: patient Onset/Context/Timing Onset: Weeks (2) Context: Gradual Onset Timing: Continuous Quality: Aching, weak Location: Left upper and lower extremities Worsened by: Nothing Relieved by: Nothing Narrative Narrative: Patient presents with left arm and leg paresthesias and weakness that has been constant for the last 2 weeks. Patient also admits to pain in her left arm and leg. Patient describes it as aching. Patient states it is constant. Patient states nothing makes it better and nothing makes it worse. Patient admits to some tingling and weakness in her left arm and leg. Patient denies any headaches. Patient denies any difficulty breathing or difficulty swallowing. Patient denies any visual changes. Patient denies any chest pain or shortness of breath. [facility] Medical History COVID Home Medications albuterol sulfate 90 mcg/actuation aerosol inhaler (Ventolin HFA) 2 puff inhalation Q4H PRN PRN Sob &/Or Wheezing 01/28/17 [History Last Taken Unknown] omeprazole 20 mg tablet,delayed release 20 mg PO DAILY 04/08/19 [History Last Taken Unknown] famotidine 20 mg tablet (Pepcid) 20 mg PO DAILY #20 tabs 08/31/21 [Rx Last Taken Unknown] ondansetron 4 mg disintegrating tablet 4 mg PO Q8H PRN Nausea 08/31/21 [History Last Taken Unknown] diazepam 5 mg tablet 5 mg PO Q8 PRN Muscle Spasm #12 tabs 11/15/21 [Rx Last Taken Unknown] hydrocodone-acetaminophen 5-325mg 5mg-325mg 1 tab PO Q6H PRN PRN Pain 3 days #10 TABLETS 11/15/21 [Rx Last Taken Unknown] promethazine 25 mg tablet 25 mg PO Q6H PRN nausea and vomiting #14 tabs 05/03/22 [Rx Last Taken Unknown] Allergy/AdvReac Type Severity Reaction Status Date / Time bupropion HCl AdvReac Other Verified 06/16/22 10:42 [From Wellbutrin] doxycycline AdvReac Other Verified 06/16/22 10:42 tramadol AdvReac Other Verified 06/16/22 10:42 Surgical History H/O: hysterectomy Hx of tonsillectomy Social History Smoking Status: Current every day smoker tobacco type: cigarettes ROS ROS ED Constitutional Constitutional ED: Denies chills or fever(s) Eyes Eyes: Denies blurry vision or change in vision ENT ENT ED: Denies rhinorrhea or sore throat Cardiovascular Cardiovascular: Denies chest pain or palpitations Respiratory/Chest Respiratory/Chest: Reports cough; Denies dyspnea Gastrointestinal Gastrointestinal: Reports nausea; Denies vomiting Genitourinary Genitourinary ED: Denies dysuria or hematuria Musculoskeletal Musculoskeletal: Reports back pain; Denies neck pain Integumentary Denies abscess or rash Neurologic Neurologic: Reports paresthesias and weakness; Denies headache(s) Allergic/Immunologic Allergic/Immunologic ED: Denies mouth swelling or urticaria EXAM Physical Exam Const Vital Signs: 06/16/22 10:43 06/16/22 10:46 Temperature 98.2 F Temperature Source Temporal Pulse Rate 108 H Respiratory Rate 18 Respiratory Effort Normal Non-Labored Respiratory Pattern Normal Blood Pressure 148/101 H Blood Pressure Mean 116 Pulse Ox 98 Oxygen Delivery Method Room Air Positive well nourished and well developed General Appearance ED: well developed and NAD HEENT Reports moist mucous membranes Neck supple and no JVD Resp normal respiratory effort and clear to auscultation bilaterally Cardio regular rate, regular rhythm and no murmurs GI normal to inspection, nondistended, normoactive bowel sounds and non-tender Palpation: soft Extremity normal to inspection General Extremety ED: Negative for edema or tenderness General Extremity: Negative for edema Neuro oriented x3, CN's II-XII intact bilaterally and no sensory deficits noted Sensorium / Orientation: alert Motor Exam: strength 5/5 throughout Psych mental status grossly normal Skin no rashes or lesions noted MDM MDM MDM Narrative Medical decision making narrative: Patient was given IV fluids. CBC was within normal limits. Comprehensive metabolic profile was within normal limits. CT scan of the brain was obtained. There is no acute abnormality noted. This was interpreted by the radiologist and reviewed by myself. High-sensitivity troponin was normal. Patient is feeling better on reevaluation. Patient was advised of her findings. Patient was instructed to follow-up with her primary care physician in 5 to 7 days. Patient understood and was agreeable with the plan. All questions were answered. Lab Data Labs: Laboratory Results - last 24 hr 06/16/22 06/16/22 11:51 11:51 WBC 7.3 RBC 4.36 Hgb 15.3 H Hct 42.7 MCV 97.9 MCH 35.1 H MCHC 35.8 RDW Std Deviation 47.7 H RDW Coeff of [place] 13.2 Plt Count 164 MPV 11.2 Immature Gran % (Auto) 0.400 Neut % (Auto) 66.5 Lymph % (Auto) 23.2 [place] % (Auto) 7.8 Eos % (Auto) 1.0 Baso % (Auto) 1.1 H Absolute Neuts (auto) 4.9 Absolute Lymphs (auto) 1.70 Nucleated RBC % 0 Sodium 140 Potassium 3.7 Chloride 108 H Carbon Dioxide 25.0 Anion Gap 7 BUN 4 L Creatinine 0.53 L Estim Creat Clear Calc 112.50 Est GFR (MDRD) Af Amer 157 Est GFR (MDRD) Non-Af 130 BUN/Creatinine Ratio 7.5 L Glucose 90 Calcium 8.9 Total Bilirubin 0.40 AST 110 H ALT 157 H Alkaline Phosphatase 55 Troponin I High Sens 11 Total Protein 6.8 Albumin 3.5 Globulin 3.3 Albumin/Globulin Ratio 1.1 Radiography Diagnostic Testing: Clinical Impression(s) from Imaging Studies Brain CT 06/16/22 11:34 IMPRESSION: Normal unenhanced CT scan of the brain. Electronically Signed: Dany Monson MD at 12:18 EDT , Discharge Plan Triage Chief Complaint: Weakness ED Provider: Randy Moreno Dx/Rx/DC Orders Clinical Impression: Arm paresthesia, left, Left leg paresthesias Instructions: ED Weakness (Uncertain Cause) Prescriptions: No Action albuterol sulfate [Ventolin HFA] 1 INHALER inhaler 2 puff inhalation Q4H PRN PRN (Reason: Sob &/Or Wheezing) omeprazole 20 MG tablet,delayed release (DR/EC) 20 mg PO DAILY ondansetron [Zofran ODT] 4 mg Tablet,Disintegrating 4 mg PO Q8H PRN (Reason: Nausea) famotidine [Pepcid] 20 mg tablet 20 mg PO DAILY Qty: 20 0RF hydrocodone-acetaminophen [hydrocodone-acetaminophen] 1 TABLET tablet 1 tab PO Q6H PRN PRN (Reason: Pain) 3 Days Qty: 10 0RF diazepam [diazepam] 5 MG tablet 5 mg PO Q8 PRN (Reason: Muscle Spasm) Qty: 12 0RF promethazine 25 mg tablet 25 mg PO Q6H PRN (Reason: nausea and vomiting) Qty: 14 0RF Primary Care Provider: Liborio Arceo Referrals: Liborio Arceo MD [Primary Care Provider] - 3-5 Days Disposition Disposition: Home, Self Care
--- NOTE | 2022-06-16 11:34 | CT_ITS ---
STUDY: CT BRAIN WITHOUT CONTRAST REASON FOR EXAM: Female, 46 years old. Left-sided arm numbness and weakness. RADIATION DOSAGE (If Supplied By Facility): CTDIvol = ( 44.99 ) mGy, DLP = ( 812.98 ) mGycm TECHNIQUE: Transaxial CT imaging of the brain was performed without administration of intravenous contrast material. Individualized dose optimization techniques were used for this CT. COMPARISON: No relevant priors. FINDINGS: Normal soft tissue structures. Normal calvarium. Normal size ventricles and extra-axial spaces for the patient''s age. Normal white matter tracts of the cerebral hemispheres. Normal basal ganglia and thalami. Normal brainstem. Normal cerebellum. There is no intracranial hemorrhage. There are no findings of an acute ischemic infarction. Normal visualized paranasal sinuses. CT/Brain/Head without Contrast IMPRESSION: Normal unenhanced CT scan of the brain. Electronically Signed: Dany Monson MD at 12:18 EDT ,
[2022-06-16 12:01] LABS: Absolute Neutrophil Count 4.9 X10^3/uL (2.0-7.7); Basophil# 0.08 X10^3/uL; Basophil% 1.1 % (0-1); Eosinophil# 0.07 X10^3/uL; Hematocrit 42.7 % (37-47); Hemoglobin 15.3 g/dL (12.0-15.0); Lymphocyte % 23.2 % (19-41); Mean Corp Hgb Conc 35.8 g/dL (32-36); Mean Corpuscular Hgb 35.1 pg (27.0-32.0); Mean Corpuscular Volume 97.9 fL (81-99); Mean Platelet Vol. 11.2 fl (6.2-12.0); Monocyte# 0.57 X10^3/uL; Monocyte% 7.8 % (0-10); NRBC Flagged by Analyzer 0 % (0-5); Neutrophil # 4.87 X10^3/uL (2.7-7.7); Neutrophil % 66.5 % (47-70); Platelet Count 164 K/mm3 (150-450); RBC Distribution Width CV 13.2 % (11.6-14.6); RBC Distribution Width SD 47.7 fl (35.1-43.9); Red Blood Count 4.36 M/mm3 (4.2-5.4); White Blood Count 7.3 K/mm3 (4.4-11.0)
[2022-06-16] MEDS: 0.9% Normal Saline 1,000 ML 1000 ML IV (12:13)
[2022-06-16 12:18] LABS: ALB/GLOB Ratio 1.1 RATIO (0.9-2.4); AST(SGOT) 110 U/L (15-37); Alanine Aminotransfer ALT/SGPT 157 U/L (13-56); Albumin, Serum 3.5 g/dL (3.2-5.0); Alkaline Phosphatase 55 U/L (45-117); Anion Gap 7 (5-15); BUN 4 mg/dL (7-18); BUN/Creat Ratio 7.5 RATIO (10-20); Calcium,Total 8.9 mg/dL (8.5-10.1); Chloride 108 mmol/L (98-107); Creatinine, Serum 0.53 mg/dL (0.55-1.02); EST Glomerular Filtration Rate 130 mL/min (>60); Est Glom Filt Rate - Afr Amer 157 mL/min (>60); Globulin 3.3 g/dL (2.2-4.2); Glucose 90 mg/dL (74-106); Potassium 3.7 mmol/L (3.5-5.1); Protein, Total 6.8 g/dL (6.4-8.2); Sodium Level 140 mmol/L (136-145); Troponin-I HS 11 pg/mL (3.0-54.0)
== END 2022-06-16 14:45 | disposition home or self-care (01) ==
PROVIDERS: Emergency Provider Emergency Medicine; PCP Family Medicine; Visit Provider Emergency Medicine
DX: R20.2 Paresthesia of skin (principal); M79.632 Pain in left forearm; M79.604 Pain in right leg; R05.9 Cough, unspecified; R11.0 Nausea; M54.9 Dorsalgia, unspecified; F17.210 Nicotine dependence, cigarettes, uncomplicated; Z79.899 Other long term (current) drug therapy
CPT/HCPCS: 70450; 80053; 84484; 85025; 96360; 99284; J7030

== ENCOUNTER 2022-07-04 16:07 | Emergency (ER) | payer BC, SELFPAY ==
[2022-07-04 16:08] VITALS: BP 144/87; PULSE 106; RESP 16; TEMP 36.6; O2SAT 98; BMI 20.7
--- NOTE | 2022-07-04 18:02 | EDS_ITS ---
HPI History of Present Illness Chief Complaint: Nausea/Vomiting/Diarrhea Informant: patient and spouse/S.O. Onset/Context/Timing Onset: Days (4 days) Context: Gradual Onset Narrative Narrative: Patient present secondary to nausea, vomiting, diarrhea, sore throat, headache, body aches. She does report some dysuria. She reports a cough with yellow sputum production. She denies having a fever at home. She states that she cannot keep anything down. [facility] Medical History COVID Home Medications albuterol sulfate 90 mcg/actuation aerosol inhaler (Ventolin HFA) 2 puff inhalation Q4H PRN PRN Sob &/Or Wheezing 01/28/17 [History Last Taken Unknown] omeprazole 20 mg tablet,delayed release 20 mg PO DAILY 04/08/19 [History Last Taken Unknown] famotidine 20 mg tablet (Pepcid) 20 mg PO DAILY #20 tabs 08/31/21 [Rx Last Taken Unknown] ondansetron 4 mg disintegrating tablet 4 mg PO Q8H PRN Nausea 08/31/21 [History Last Taken Unknown] diazepam 5 mg tablet 5 mg PO Q8 PRN Muscle Spasm #12 tabs 11/15/21 [Rx Last Taken Unknown] hydrocodone-acetaminophen 5-325mg 5mg-325mg 1 tab PO Q6H PRN PRN Pain 3 days #10 TABLETS 11/15/21 [Rx Last Taken Unknown] promethazine 25 mg tablet 25 mg PO Q6H PRN nausea and vomiting #14 tabs 05/03/22 [Rx Last Taken Unknown] dicyclomine 20 mg tablet 20 mg PO BID PRN abdominal cramping #10 tabs 07/04/22 [Rx Last Taken Unknown] ondansetron 4 mg disintegrating tablet 4 mg PO Q8H PRN nausea and vomiting #10 tabs 07/04/22 [Rx Last Taken Unknown] pantoprazole 40 mg tablet,delayed release (Protonix) 40 mg PO DAILY #10 tabs 07/04/22 [Rx Last Taken Unknown] Allergy/AdvReac Type Severity Reaction Status Date / Time bupropion HCl AdvReac Other Verified 07/04/22 16:10 [From Wellbutrin] doxycycline AdvReac Other Verified 07/04/22 16:10 tramadol AdvReac Other Verified 07/04/22 16:10 Surgical History H/O: hysterectomy Hx of tonsillectomy Social History Smoking Status: Current every day smoker tobacco type: cigarettes ROS ROS ED Constitutional Constitutional ED: Denies chills or fever(s) Eyes Eyes: Denies change in vision or discharge from eye(s) ENT ENT ED: Reports sore throat; Denies discharge from eye(s) or rhinorrhea Cardiovascular Cardiovascular: Denies chest pain or palpitations Respiratory/Chest Respiratory/Chest: Reports cough and sputum; Denies dyspnea Gastrointestinal Gastrointestinal: Reports abdominal pain, diarrhea, nausea and vomiting Genitourinary Genitourinary ED: Reports dysuria; Denies difficulty urinating Musculoskeletal Musculoskeletal: Reports myalgias; Denies back pain or extremity pain Integumentary Denies Abrasions or rash Neurologic Neurologic: Denies headache(s) or weakness Psychiatric Psychiatric: Denies anxiety or depression Allergic/Immunologic Allergic/Immunologic ED: Denies lip swelling or urticaria EXAM Physical Exam Const Vital Signs: 07/04/22 16:08 07/04/22 19:35 Temperature 97.8 F Temperature Source Temporal Pulse Rate 106 H Respiratory Rate 16 Blood Pressure 144/87 H 164/114 H Blood Pressure Mean 106 130 Pulse Ox 98 Oxygen Delivery Method Room Air Positive well nourished and well developed General Appearance ED: well developed HEENT Reports normocephalic and head/scalp atraumatic Eyes PERRL and EOMs intact bilaterally Neck supple Chest Wall inspection of chest normal and palpation of chest normal Resp normal respiratory effort and clear to auscultation bilaterally Cardio regular rate and regular rhythm GI non-tender Auscultation: hypoactive bowel sounds Palpation: soft Back/Spine no CVA tenderness Extremity normal to inspection Neuro oriented x3 and no sensory deficits noted Sensorium / Orientation: alert Motor Exam: strength 5/5 throughout Psych Mood & Affect: anxious Skin no rashes or lesions noted MDM MDM MDM Narrative Medical decision making narrative: Patient is given Toradol and Zofran along with IV fluids. Lab work and urinalysis obtained. Portable chest x-ray obtained secondary to cough. Rapid COVID test obtained per nursing protocol. Lab Data Attestation: I reviewed the patient's lab results. Labs: Laboratory Results - last 24 hr 07/04/22 07/04/22 07/04/22 18:30 18:50 20:14 WBC 7.1 RBC 4.24 Hgb 15.0 Hct 42.3 MCV 99.8 H MCH 35.4 H MCHC 35.5 RDW Std Deviation 47.6 H RDW Coeff of [place] 12.9 Plt Count 162 MPV 11.9 Immature Gran % (Auto) 0.400 Neut % (Auto) 56.3 Lymph % (Auto) 32.7 [place] % (Auto) 7.9 Eos % (Auto) 2.0 Baso % (Auto) 0.7 Absolute Neuts (auto) 4.0 Absolute Lymphs (auto) 2.32 Nucleated RBC % 0 Sodium 136 Potassium 3.6 Chloride 106 Carbon Dioxide 19.0 L Anion Gap 11 BUN 5 L Creatinine 0.48 L Estim Creat Clear Calc 128.29 Est GFR (MDRD) Af Amer 175 Est GFR (MDRD) Non-Af 145 BUN/Creatinine Ratio 10.3 Glucose 96 Calcium 8.8 Total Bilirubin 0.50 Direct Bilirubin 0.21 AST 149 H ALT 168 H Alkaline Phosphatase 69 Total Protein 6.9 Albumin 3.4 Globulin 3.5 Lipase 316 Urine Color Straw Urine Clarity Clear Urine pH 6.5 Ur Specific [place] 1.005 Urine Protein 15 H Urine Glucose (UA) Normal Urine Ketones Negative Urine Occult Blood 150 H Urine Nitrite Negative Urine Bilirubin Negative Urine Urobilinogen Normal Ur Leukocyte Esterase Negative Urine RBC 0 SEEN Urine WBC 0 SEEN Ur Squamous Epith Cells 0 SEEN Urine Bacteria 1+ Urine Mucus 0 SEEN Rapid COVID: Negative Radiography Chest X-Ray - ED: 1 View, Read by ED Physician, Chronic Changes and - (Hyperinflation) Diagnostic Testing: Clinical Impression(s) from Imaging Studies Chest X-Ray 07/04/22 18:45 IMPRESSION: Normal x-ray examination of the chest. Electronically Signed: Liborio Barnett MD, CARLIN at 19:03 EDT , Treatment and Re-Evaluation Narrative: Chest x-ray reveals hyperinflation with chronic changes. No focal infiltrate appreciated. CBC reveals no acute abnormality. Chemistry studies normal. LFTs reveal an AST of 149 and an AST of 168. It appears that her ALT and AST only been climbing over the last 2 months when checked. Her lipase is normal. Her urinalysis is negative for infection. On repeat evaluation patient had some co ntinued nausea and received a second dose of Zofran. Test results discussed with her. COVID test is negative. I did recommend she follow-up with her primary care physician regarding the elevation in ALT and AST as this has slowly been climbing over the last 2 months. She has no focal tenderness in the right upper quadrant. She is treated with Protonix, Zofran, Bentyl. Due to concerns that she may have a yeast infection she is given a single dose of Diflucan here. Discharge Plan Triage Chief Complaint: Nausea/Vomiting/Diarrhea ED Provider: Lyubov Lara Dx/Rx/DC Orders Clinical Impression: Viral syndrome, Viral gastroenteritis Instructions: ED Gastroenteritis, Viral (Adult), ED Viral Syndrome (Adult) Prescriptions: New pantoprazole [Protonix] 40 mg tablet,delayed release (DR/EC) 40 mg PO DAILY Qty: 10 0RF ondansetron 4 mg tablet,disintegrating 4 mg PO Q8H PRN (Reason: nausea and vomiting) Qty: 10 0RF dicyclomine 20 mg tablet 20 mg PO BID PRN (Reason: abdominal cramping) Qty: 10 0RF No Action albuterol sulfate [Ventolin HFA] 1 INHALER inhaler 2 puff inhalation Q4H PRN PRN (Reason: Sob &/Or Wheezing) omeprazole 20 MG tablet,delayed release (DR/EC) 20 mg PO DAILY ondansetron [Zofran ODT] 4 mg Tablet,Disintegrating 4 mg PO Q8H PRN (Reason: Nausea) famotidine [Pepcid] 20 mg tablet 20 mg PO DAILY Qty: 20 0RF hydrocodone-acetaminophen [hydrocodone-acetaminophen] 1 TABLET tablet 1 tab PO Q6H PRN PRN (Reason: Pain) 3 Days Qty: 10 0RF diazepam [diazepam] 5 MG tablet 5 mg PO Q8 PRN (Reason: Muscle Spasm) Qty: 12 0RF promethazine 25 mg tablet 25 mg PO Q6H PRN (Reason: nausea and vomiting) Qty: 14 0RF Primary Care Provider: Liborio Arceo Referrals: Liborio Arceo MD [Primary Care Provider] - 1 Week Activity Restrictions/Additional Instructions: As discussed, 2 of your test on your liver panel have been elevated for the last 2 months. Please follow-up with your primary care physician regarding further testing for this. Disposition Disposition: Home, Self Care
[2022-07-04] MEDS: 0.9% Normal Saline 1,000 ML 1000 ML IV (18:35)
[2022-07-04] MEDS: Ketorolac 30 MG/ML Syringe IV (18:35)
[2022-07-04] MEDS: Ondansetron 4 MG/2 ML Vial IV ×2 (18:35→21:29)
--- NOTE | 2022-07-04 18:45 | RAD_ITS ---
STUDY: X-RAY CHEST REASON FOR EXAM: Female, 46 years old. cough TECHNIQUE: AP frontal COMPARISON: 11/15/2021 FINDINGS: The lungs are clear and expanded. There is no demonstrated pleural abnormality. Normal size heart. Normal mediastinum and rubens. Normal visualized pulmonary arteries. Normal visualized aortic arch and descending thoracic aorta. Normal visualized thoracic spine. Normal visualized ribs, clavicles, and shoulders. There is no demonstrated abnormality of the visualized soft tissue structures of the upper abdomen. Stable findings. RAD/Chest 1 View (Portable) IMPRESSION: Normal x-ray examination of the chest. Electronically Signed: Liborio Barnett MD, CARLIN at 19:03 EDT ,
[2022-07-04 18:54] LABS: Mucous, Urine 0 SEEN /hpf (<or=2+); Red Blood Cells-Urine 0 SEEN /hpf (0-5); Squamous Epithelial Cells - UA 0 SEEN /hpf (5-10); White Blood Cells 0 SEEN /hpf (0-5)
[2022-07-04 18:58] LABS: AST(SGOT) 149 U/L (15-37); Alanine Aminotransfer ALT/SGPT 168 U/L (13-56); Albumin, Serum 3.4 g/dL (3.2-5.0); Alkaline Phosphatase 69 U/L (45-117); Anion Gap 11 (5-15); BUN 5 mg/dL (7-18); BUN/Creat Ratio 10.3 RATIO (10-20); Bilirubin, Direct 0.21 mg/dL (0.00-0.30); Calcium,Total 8.8 mg/dL (8.5-10.1); Chloride 106 mmol/L (98-107); Creatinine, Serum 0.48 mg/dL (0.55-1.02); EST Glomerular Filtration Rate 145 mL/min (>60); Est Glom Filt Rate - Afr Amer 175 mL/min (>60); Estimated Creatinine Clearance 128.29 ml/min; Globulin 3.5 g/dL (2.2-4.2); Glucose 96 mg/dL (74-106); Lipase 316 U/L (73-393); Potassium 3.6 mmol/L (3.5-5.1); Protein, Total 6.9 g/dL (6.4-8.2); Sodium Level 136 mmol/L (136-145)
--- NOTE | 2022-07-04 19:00 | ED.RN ---
Pt. c/o nausea and vomiting. Pt. drinking 7 up and requesting taco serrato. Pt. educated that she needed to stop eating and drinking if she is nauseous.
[2022-07-04 19:05] LABS: Color, Urine Straw (Yellow); Glucose, Dipstick Normal (Normal); Ketone-Dipstick Negative (Negative); Leukocyte Esterase-Dipstick Negative /ul (Negative); Nitrite-Dipstick Negative (Negative); Occult Blood-Urine 150 /ul (Negative); Protein-Dipstick 15 mg/dl (Negative); Specific Gravity, Urine 1.005 (1.002-1.030); Urine Bilirubin Dipstick Negative (Negative); Urine Clarity Clear (Clear); Urine Urobilinogen Normal (Normal); Urine pH 6.5 (5.0 - 8.0)
[2022-07-04 19:35] VITALS: BP 164/114
[2022-07-04] MEDS: 0.9% Normal Saline 1,000 ML 150 ML IV (19:35)
[2022-07-04 19:36] LABS: Bacteria 1+ /hpf (None Seen)
[2022-07-04 20:50] LABS: Absolute Lymphocyte Count 2.32 X10^3/uL (0.83-4.51); Basophil# 0.05 X10^3/uL; Basophil% 0.7 % (0-1); Eosinophil# 0.14 X10^3/uL; Hematocrit 42.3 % (37-47); Lymphocyte # 2.32 X10^3/ul (0.83-4.51); Lymphocyte % 32.7 % (19-41); Mean Corp Hgb Conc 35.5 g/dL (32-36); Mean Corpuscular Hgb 35.4 pg (27.0-32.0); Mean Corpuscular Volume 99.8 fL (81-99); Mean Platelet Vol. 11.9 fl (6.2-12.0); Monocyte# 0.56 X10^3/uL; Monocyte% 7.9 % (0-10); NRBC Flagged by Analyzer 0 % (0-5); Neutrophil # 3.99 X10^3/uL (2.7-7.7); Neutrophil % 56.3 % (47-70); Platelet Count 162 K/mm3 (150-450); RBC Distribution Width CV 12.9 % (11.6-14.6); RBC Distribution Width SD 47.6 fl (35.1-43.9); Red Blood Count 4.24 M/mm3 (4.2-5.4); White Blood Count 7.1 K/mm3 (4.4-11.0)
[2022-07-04] MEDS: Fluconazole 100 MG Tablet 200 MG PO (22:17)
--- NOTE | 2022-07-04 22:25 | ED.RN ---
pharmacy states unable to fill meds to beds tonight
== END 2022-07-04 22:25 | disposition home or self-care (01) ==
PROVIDERS: Emergency Provider Emergency Medicine; PCP Family Medicine; Visit Provider Emergency Medicine
DX: A08.4 Viral intestinal infection, unspecified (principal); Z20.822 Contact with and (suspected) exposure to COVID-19; R05.9 Cough, unspecified; J02.9 Acute pharyngitis, unspecified; R30.0 Dysuria; R51.9 Headache, unspecified; F17.210 Nicotine dependence, cigarettes, uncomplicated; Z79.899 Other long term (current) drug therapy
CPT/HCPCS: 71045; 80048; 80076; 81001; 83690; 85025; 87811; 96361; 96374; 96375; 96376; 99284; J7030; A4216; J2405

== ENCOUNTER 2022-11-30 18:32 | Emergency (ER) | payer BC, SELFPAY ==
[2022-11-30 18:33] VITALS: BP 126/93; PULSE 108; RESP 18; TEMP 35.9; O2SAT 94; BMI 20.2
--- NOTE | 2022-11-30 19:06 | EKG12_ITS ---
Test Reason : SOB/CP Blood Pressure : / mmHG Vent. Rate : 102 BPM Atrial Rate : 102 BPM P-R Int : 140 ms QRS Dur : 084 ms QT Int : 360 ms P-R-T Axes : 070 082 070 degrees QTc Int : 469 ms Sinus tachycardia Minimal voltage criteria for LVH, may be normal variant ( Sokolow-Payne ) Borderline ECG Confirmed by JONATHAN CORTEZ, JAMIE ([id number]), editor [employer] journal ALTON THOMAS ([id number]) on 12/05/2022 12:20:53 PM Referred By: PL Confirmed By:JAMIE CASTILLO MD
--- NOTE | 2022-11-30 19:20 | RAD_ITS ---
INDICATION: chest pain EXAMINATION/TECHNIQUE: X-RAY - XR Chest 1 View COMPARISON: July 04, 2022 FINDINGS: LINES/DEVICES: None. LUNGS: No consolidation, edema or effusion. No pneumothorax. MEDIASTINUM AND CARDIOVASCULAR STRUCTURES: Cardiac silhouette not enlarged. Central airways and mediastinal contour are unremarkable. BONES AND SOFT TISSUES: Unremarkable. No change since prior exam RAD/Chest 1 View (Portable) IMPRESSION: No radiographic evidence of acute cardiopulmonary disease. Electronically Signed: Severino Cline MD at 19:36 EST ,
[2022-11-30 19:23] LABS: Absolute Lymphocyte Count 3.24 X10^3/uL (0.83-4.51); Absolute Neutrophil Count 4.5 X10^3/uL (2.0-7.7); Basophil# 0.08 X10^3/uL; Basophil% 0.9 % (0-1); Eosinophil# 0.49 X10^3/uL; Eosinophils% 5.5 % (0-5); Hematocrit 46.3 % (37-47); Hemoglobin 16.1 g/dL (12.0-15.0); Lymphocyte # 3.24 X10^3/ul (0.83-4.51); Lymphocyte % 36.3 % (19-41); Mean Corp Hgb Conc 34.8 g/dL (32-36); Mean Corpuscular Hgb 35.2 pg (27.0-32.0); Mean Corpuscular Volume 101.1 fL (81-99); Mean Platelet Vol. 11.1 fl (6.2-12.0); Monocyte# 0.59 X10^3/uL; Monocyte% 6.6 % (0-10); NRBC Flagged by Analyzer 0 % (0-5); Neutrophil # 4.49 X10^3/uL (2.7-7.7); Neutrophil % 50.3 % (47-70); Platelet Count 218 K/mm3 (150-450); RBC Distribution Width CV 13.4 % (11.6-14.6); RBC Distribution Width SD 50.1 fl (35.1-43.9); Red Blood Count 4.58 M/mm3 (4.2-5.4); White Blood Count 8.9 K/mm3 (4.4-11.0)
[2022-11-30 20:15] LABS: Anion Gap 9 (5-15); BUN 5 mg/dL (7-18); BUN/Creat Ratio 8.4 RATIO (10-20); Calcium,Total 8.9 mg/dL (8.5-10.1); Chloride 109 mmol/L (98-107); EST Glomerular Filtration Rate 114 mL/min (>60); Est Glom Filt Rate - Afr Amer 138 mL/min (>60); Estimated Creatinine Clearance 99.08 ml/min; Glucose 110 mg/dL (74-106); Potassium 4.1 mmol/L (3.5-5.1); Sodium Level 141 mmol/L (136-145); Troponin-I HS 13 pg/mL (3.0-54.0)
[2022-11-30 20:45] VITALS: BP 130/82; PULSE 96; RESP 18; O2SAT 97
--- NOTE | 2022-11-30 20:46 | EDS_ITS ---
HPI History of Present Illness Chief Complaint: Chest Pain Narrative Narrative: 47-year-old female past medical history of being a smoker, presents with chest pressure that she is had for the last 2 to 3 days. She states that she keeps getting upper respiratory infections and has had this bug at least 4 times over the last 2 months. She saw a provider who started her on Augmentin and prednisone. She states that the Augmentin gave her diarrhea and nausea so she had to half the dosing each time. Additionally, she states that the prednisone made her very shaky and scared. She has had constant chest pressure for the last 2 to 3 days. She denies any exacerbating or alleviating factors. No leg swelling, no fevers or chills. She has an occasional cough and states that she has been using the inhaler that she was given when I need it. [facility] Medical History COVID History of hyperactive airway disease History of ureterolithiasis Home Medications albuterol sulfate 90 mcg/actuation aerosol inhaler (Ventolin HFA) 2 puff inhalation Q4H PRN PRN Sob &/Or Wheezing 01/28/17 [History Last Taken Unknown] omeprazole 20 mg tablet,delayed release 20 mg PO DAILY 04/08/19 [History Last Taken Unknown] famotidine 20 mg tablet (Pepcid) 20 mg PO DAILY #20 tabs 08/31/21 [Rx Last Taken Unknown] ondansetron 4 mg disintegrating tablet 4 mg PO Q8H PRN Nausea 08/31/21 [History Last Taken Unknown] diazepam 5 mg tablet 5 mg PO Q8 PRN Muscle Spasm #12 tabs 11/15/21 [Rx Last Taken Unknown] hydrocodone-acetaminophen 5-325mg 5mg-325mg 1 tab PO Q6H PRN PRN Pain 3 days #10 TABLETS 11/15/21 [Rx Last Taken Unknown] promethazine 25 mg tablet 25 mg PO Q6H PRN nausea and vomiting #14 tabs 05/03/22 [Rx Last Taken Unknown] dicyclomine 20 mg tablet 20 mg PO BID PRN abdominal cramping #10 tabs 07/04/22 [Rx Last Taken Unknown] ondansetron 4 mg disintegrating tablet 4 mg PO Q8H PRN nausea and vomiting #10 tabs 07/04/22 [Rx Last Taken Unknown] pantoprazole 40 mg tablet,delayed release (Protonix) 40 mg PO DAILY #10 tabs 07/04/22 [Rx Last Taken Unknown] Allergy/AdvReac Type Severity Reaction Status Date / Time bupropion HCl AdvReac Other Verified 11/30/22 18:33 [From Wellbutrin] doxycycline AdvReac Other Verified 11/30/22 18:33 tramadol AdvReac Other Verified 11/30/22 18:33 Surgical History H/O: hysterectomy Hx of tonsillectomy Social History Smoking Status: Current every day smoker tobacco type: cigarettes ROS ROS ED ROS Narrative Constitutional: No fever, no chills. HEENT: No sore throat. No neck pain. No loss of vision. No rhinorrhea. Cardiovascular: Positive chest pressure/chest pain. No palpitations. No pedal edema. Respiratory: Occasional cough, positive shortness of breath. Abdominal: No abdominal pain. Positive nausea, no vomiting, positive diarrhea from Augmentin use. Genitourinary: No dysuria. No hematuria. Musculoskeletal: No myalgias. No arthralgias. Neurologic: No headaches. No dizziness. No lightheadedness. Shakiness from p rednisone so stopped taking. Skin: No rash. No change in color. Psychiatric: No depression. No anxiety. EXAM Physical Exam Narrative Exam Narrative: Afebrile. Vital signs noted. HEENT: Normocephalic. Atraumatic. PERRL, EOMI. Neck soft and supple. No point tenderness or step off. Cardiovascular: Regular rate and rhythm with intermittent tachycardia. No murmurs, rubs, or gallops appreciated. Respiratory: No tachypnea. Lungs clear to auscultation bilaterally. Gastrointestinal: Abdomen soft, nontender, with normoactive bowel sounds. No rebound or guarding. Neurological: Awake. Alert. Nonfocal, nonlateralizing. Skin: No rash. Normal color. No pallor. Musculoskeletal: No pedal edema. Full range of motion extremities. Const Vital Signs: 11/30/22 18:33 11/30/22 20:11 11/30/22 20:11 Temperature 96.7 F L Temperature Source Temporal Pulse Rate 108 H Respiratory Rate 18 Respiratory Effort Normal Blood Pressure 126/93 H Blood Pressure Mean 104 Pulse Ox 94 Oxygen Delivery Method Room Air Room Air 11/30/22 20:45 Temperature Temperature Source Pulse Rate 96 Respiratory Rate 18 Respiratory Effort Blood Pressure 130/82 H Blood Pressure Mean Pulse Ox 97 Oxygen Delivery Method Heart Score History: Slightly/Non-Suspicious Age: >45 - <65 years Risk Factors: 1 or 2 Risk Factors Troponin: </= Normal Limit Score: 2 MDM MDM MDM Narrative Medical decision making narrative: Nursing protocol chest pain work-up was pursued. EKG was obtained and interpreted by myself which demonstrates sinus tachycardia at 102 bpm without ectopy or acute ST changes, no STEMI. I reviewed her CBC which shows a normal white count of 8.9, hemoglobin slightly hemoconcentrated at 16.1, normal platelet count of 218. BMP shows normal electrolytes except chloride of 109, potassium is normal at 4.1, BUN low at 5 with creatinine 0.60. Glucose appropriately elevated at 110 with an anion gap normal at 9. Troponin which is 13, and this is greater than a 6-hour troponin as she has had chest pressure for the last 2 to 3 days. I reviewed her chest x-ray which shows no evidence of pneumonia or pneumothorax. At this point in time, I feel she can be discharged safely home with follow-up. I have low concern for pulmonary embolism as she has a normal heart rate currently, and her pulse ox is 97% on room air and she denies any pleuritic chest pain, or leg swelling. She was told to quit smoking, and to use her inhaler every 4-6 hours. She will continue her cswf-nao-ilnrmic medications. Return instructions to the emergency department were reviewed. Disposition is discharged home in stable condition. Lab Data Attestation: I reviewed the patient's lab results. Labs: Laboratory Results - last 24 hr 11/30/22 11/30/22 19:15 19:15 WBC 8.9 RBC 4.58 Hgb 16.1 H Hct 46.3 MCV 101.1 H MCH 35.2 H MCHC 34.8 RDW Std Deviation 50.1 H RDW Coeff of Ashanti 13.4 Plt Count 218 MPV 11.1 Immature Gran % (Auto) 0.400 Neut % (Auto) 50.3 Lymph % (Auto) 36.3 Power % (Auto) 6.6 Eos % (Auto) 5.5 H Baso % (Auto) 0.9 Absolute Neuts (auto) 4.5 Absolute Lymphs (auto) 3.24 Nucleated RBC % 0 Sodium 141 Potassium 4.1 Chloride 109 H Carbon Dioxide 23.0 Anion Gap 9 BUN 5 L Creatinine 0.60 Estim Creat Clear Calc 99.08 Est GFR (MDRD) Af Amer 138 Est GFR (MDRD) Non-Af 114 BUN/Creatinine Ratio 8.4 L Glucose 110 H Calcium 8.9 Troponin I High Sens 13 Radiography Diagnostic Testing: Clinical Impression(s) from Imaging Studies Chest X-Ray 11/30/22 19:20 IMPRESSION: No radiographic evidence of acute cardiopulmonary disease. Electronically Signed: Severino Cline MD at 19:36 EST Reading Location ID and State: [facility] / [place] , Service support , Discharge Plan Triage Chief Complaint: Chest Pain Other Complaint: Shortness of Breath ED Provider: Chato Eaton Dx/Rx/DC Orders Clinical Impression: Chest pressure, Bronchitis, Smoker Instructions: ED Bronchitis, No Antibiotic (Adult), ED Chest Pain, Uncertain Cause Prescriptions: No Action albuterol sulfate [Ventolin HFA] 1 INHALER inhaler 2 puff inhalation Q4H PRN PRN (Reason: Sob &/Or Wheezing) omeprazole 20 MG tablet,delayed release (DR/EC) 20 mg PO DAILY ondansetron [Zofran ODT] 4 mg Tablet,Disintegrating 4 mg PO Q8H PRN (Reason: Nausea) famotidine [Pepcid] 20 mg tablet 20 mg PO DAILY Qty: 20 0RF hydrocodone-acetaminophen [hydrocodone-acetaminophen] 1 TABLET tablet 1 tab PO Q6H PRN PRN (Reason: Pain) 3 Days Qty: 10 0RF diazepam [diazepam] 5 MG tablet 5 mg PO Q8 PRN (Reason: Muscle Spasm) Qty: 12 0RF promethazine 25 mg tablet 25 mg PO Q6H PRN (Reason: nausea and vomiting) Qty: 14 0RF pantoprazole [Protonix] 40 mg tablet,delayed release (DR/EC) 40 mg PO DAILY Qty: 10 0RF ondansetron 4 mg tablet,disintegrating 4 mg PO Q8H PRN (Reason: nausea and vomiting) Qty: 10 0RF dicyclomine 20 mg tablet 20 mg PO BID PRN (Reason: abdominal cramping) Qty: 10 0RF Primary Care Provider: Liborio Arceo Referrals: Liborio Arceo MD [Primary Care Provider] - 3-5 Days if not improving Activity Restrictions/Additional Instructions: Stop smoking. Continue use of your Augmentin and your inhaler, but only use your inhaler every 4-6 hours. Continue your [id number] medications. Disposition Disposition: Home, Self Care
--- NOTE | 2022-11-30 20:55 | NURSING ---
Pt d/c own IV. Pt stated, I've been taking IVs out for years I know how to take it out. This RN confirmed IV was out of arm before discharge.
== END 2022-11-30 20:53 | disposition home or self-care (01) ==
PROVIDERS: Emergency Provider Emergency Medicine; PCP Family Medicine; Visit Provider Emergency Medicine
DX: R07.89 Other chest pain (principal); F17.210 Nicotine dependence, cigarettes, uncomplicated; J40 Bronchitis, not specified as acute or chronic
CPT/HCPCS: 71045; 80048; 84484; 85025; 93005; 99283

== ENCOUNTER 2023-04-07 09:17 | Emergency (ER) | payer BC, SELFPAY ==
[2023-04-07 09:18] VITALS: BP 171/112; PULSE 107; RESP 16; TEMP 36.2; O2SAT 97; BMI 20.9
--- NOTE | 2023-04-07 09:36 | EDS_ITS ---
HPI History of Present Illness Chief Complaint: Complaint Narrative Narrative: 47-year-old female who denies significant past medical history although she states she has had kidney stones in the past, last being a few months ago presents with bilateral low back pain that she had for the last few days, and dysuria/pain with urination. She denies any hematuria, no fevers or chills. She is nauseated and vomited profusely this morning, where she had blood-tinged sputum but no maddy hemoptysis or hematemesis. She tried Tylenol and ibuprofen without relief. She thinks that she might have a urinary tract infection versus return of kidney stones. No exacerbating or alleviating factors to her pain. [facility] Medical History COVID History of hyperactive airway disease History of ureterolithiasis Home Medications albuterol sulfate 90 mcg/actuation aerosol inhaler (Ventolin HFA) 2 puff inhalation Q4H PRN PRN Sob &/Or Wheezing 01/28/17 [History Last Taken Unknown] omeprazole 20 mg tablet,delayed release 20 mg PO DAILY 04/08/19 [History Last Taken Unknown] famotidine 20 mg tablet (Pepcid) 20 mg PO DAILY #20 tabs 08/31/21 [Rx Last Taken Unknown] ondansetron 4 mg disintegrating tablet 4 mg PO Q8H PRN Nausea 08/31/21 [History Last Taken Unknown] diazepam 5 mg tablet 5 mg PO Q8 PRN Muscle Spasm #12 tabs 11/15/21 [Rx Last Taken Unknown] hydrocodone-acetaminophen 5-325mg 5mg-325mg 1 tab PO Q6H PRN PRN Pain 3 days #10 TABLETS 11/15/21 [Rx Last Taken Unknown] promethazine 25 mg tablet 25 mg PO Q6H PRN nausea and vomiting #14 tabs 05/03/22 [Rx Last Taken Unknown] dicyclomine 20 mg tablet 20 mg PO BID PRN abdominal cramping #10 tabs 07/04/22 [Rx Last Taken Unknown] ondansetron 4 mg disintegrating tablet 4 mg PO Q8H PRN nausea and vomiting #10 tabs 07/04/22 [Rx Last Taken Unknown] pantoprazole 40 mg tablet,delayed release (Protonix) 40 mg PO DAILY #10 tabs 07/04/22 [Rx Last Taken Unknown] hydrocodone-acetaminophen 5-325mg 5mg-325mg 1 tab PO Q6H PRN PRN Pain 3 days #10 TABLETS 04/07/23 [Rx Last Taken Unknown] ondansetron 4 mg disintegrating tablet 4 mg PO Q6H PRN nausea and vomiting #20 tabs 04/07/23 [Rx Last Taken Unknown] Allergy/AdvReac Type Severity Reaction Status Date / Time bupropion HCl AdvReac Other Verified 04/07/23 09:20 [From Wellbutrin] doxycycline AdvReac Other Verified 04/07/23 09:20 tramadol AdvReac Other Verified 04/07/23 09:20 Surgical History H/O: hysterectomy Hx of tonsillectomy Social History Smoking Status: Current every day smoker tobacco type: cigarettes ROS ROS ED ROS Narrative Constitutional: No fever, no chills. HEENT: No sore throat. No neck pain. No loss of vision. No rhinorrhea. Cardiovascular: No chest pain. No palpitations. No pedal edema. Respiratory: No cough, no shortness of breath. Abdominal: No abdominal pain. Positive nausea and vomiting with blood-tinged emesis. Bilateral low back pain. Genitourinary: Positive dysuria. No hematuria. Musculoskeletal: No myalgias. No arthralgias. Neurologic: No headaches. No dizziness. No lightheadedness. Skin: No rash. No change in color. Psychiatric: No depression. No anxiety. EXAM Physical Exam Narrative Exam Narrative: Afebrile. Vital signs noted. HEENT: Normocephalic. Atraumatic. PERRL, EOMI. Neck soft and supple. No point tenderness or step off. Cardiovascular: Regular rate and rhythm. No murmurs, rubs, or gallops appreciated. Respiratory: No tachypnea. Lungs clear to auscultation bilaterally. Gastrointestinal: Abdomen soft, nontender, with normoactive bowel sounds. No rebound or guarding. Tenderness to percussion bilateral flanks, no CVA tenderness to percussion. Neurological: Awake. Alert. Nonfocal, nonlateralizing. Skin: No rash. Normal color. No pallor. Musculoskeletal: No pedal edema. Full range of motion extremities. Const Vital Signs: 04/07/23 09:18 Temperature 97.2 F L Temperature Source Temporal Pulse Rate 107 H Respiratory Rate 16 Blood Pressure 171/112 H Blood Pressure Mean 131 Pulse Ox 97 MDM MDM MDM Narrative Medical decision making narrative: Patient may have pyelonephritis versus ureterolithiasis. I do feel CT imaging is indicated to rule out ureterolithiasis, and any obstruction of her bowels. However, I do feel that her blood-tinged sputum is most likely from a Debra- Goldsmith tear. Urinalysis will be obtained to rule infection in or out. She will be administered IV fluids at 250 mL/h along with Toradol 30 mg intravenously initially for analgesia. As she is 47, she has irregular menses so serum beta hCG will be obtained. I reviewed her laboratory work and she has a normal white count of 10.1, hemoglobin slightly hemoconcentrated at 17.3, hematocrit 48.9, platelet count normal at 201. Review of her BMP shows glucose normal at 101 with a normal BUN and normal creatinine. She has a normal anion gap of 7. Sodium and potassium are also normal. Serum is negative. CT of the abdomen pelvis without contrast was reviewed. I reviewed the imaging, and then reviewed the radiology report. It shows no evidence of ureterolithiasis or hydronephrosis. It does show left-sided ovarian cyst. Her urinalysis shows few RBCs but no evidence of infection, while there is 1+ bacteria, she has normal WBC count. I do not feel antibiotics are indicated. As the patient was having pain and back pain, and she also states that she gets back pain with ovarian cysts, in order to rule out any ovarian torsion, tr ansvaginal ultrasound was obtained. She was given 1 dose of morphine 4 mg intravenously here. Her ultrasound shows that she has had a hysterectomy, although initially when I had asked her if she had any abdominal surgeries, she stated that she had not. In review of the radiology report of the ultrasound, she does have bilateral ovarian cysts, left greater than right, but has good arterial Doppler flow to each ovary. At this point in time, I am not concerned for torsion and do not feel that emergent [employer] consultation is indicated. She will be discharged with a prescription for Zofran and 10 [place] tablets for her pain/analgesia. She will follow-up with [employer]. I feel she can be discharged safely home with follow-up. Return instructions reviewed. Disposition is discharged home in stable condition. History & Record Review Discussion w/independent historian: Patient Additional record(s) reviewed:: Prior ED visit and Prior labs Lab Data Attestation: I reviewed the patient's lab results. Labs: Laboratory Results - last 24 hr 04/07/23 04/07/23 04/07/23 09:45 09:45 09:45 WBC 10.1 RBC 4.91 Hgb 17.3 H Hct 48.9 H MCV 99.6 H MCH 35.2 H MCHC 35.4 RDW Std Deviation 47.4 H RDW Coeff of Ashanti 12.8 Plt Count 201 MPV 10.9 Immature Gran % (Auto) 0.400 Neut % (Auto) 72.1 H Lymph % (Auto) 18.5 L [place] % (Auto) 7.8 Eos % (Auto) 0.5 Baso % (Auto) 0.7 Absolute Neuts (auto) 7.3 Absolute Lymphs (auto) 1.87 Nucleated RBC % 0 Sodium 138 Potassium 4.0 Chloride 106 Carbon Dioxide 25.0 Anion Gap 7 BUN 7 Creatinine 0.65 Estim Creat Clear Calc 94.21 Est GFR (MDRD) Af Amer 125 Est GFR (MDRD) Non-Af 103 BUN/Creatinine Ratio 10.8 Glucose 101 Calcium 8.8 Serum , Qual NEGATIVE Urine Color Urine Clarity Urine pH Ur Specific [place] Urine Protein Urine Glucose (UA) Urine Ketones Urine Occult Blood Urine Nitrite Urine Bilirubin Urine Urobilinogen Ur Leukocyte Esterase Urine RBC Urine WBC Ur Squamous Epith Cells Urine Bacteria Urine Mucus 04/07/23 09:45 WBC RBC Hgb Hct MCV MCH MCHC RDW Std Deviation RDW Coeff of Ashanti Plt Count MPV Immature Gran % (Auto) Neut % (Auto) Lymph % (Auto) [place] % (Auto) Eos % (Auto) Baso % (Auto) Absolute Neuts (auto) Absolute Lymphs (auto) Nucleated RBC % Sodium Potassium Chloride Carbon Dioxide Anion Gap BUN Creatinine Estim Creat Clear Calc Est GFR (MDRD) Af Amer Est GFR (MDRD) Non-Af BUN/Creatinine Ratio Glucose Calcium Serum , Qual Urine Color Yellow Urine Clarity Sl. Cloudy Urine pH 7.0 Ur Specific [place] 1.005 Urine Protein 100 H Urine Glucose (UA) Normal Urine Ketones Negative Urine Occult Blood 150 H Urine Nitrite Negative Urine Bilirubin Negative Urine Urobilinogen Normal Ur Leukocyte Esterase Negative Urine RBC 10-25 SEEN Urine WBC 0 SEEN Ur Squamous Epith Cells 0-5 SEEN Urine Bacteria 1+ Urine Mucus 0 SEEN Radiography Diagnostic Testing: Clinical Impression(s) from Imaging Studies Abdomen/Pelvis CT 04/07/23 10:10 IMPRESSION: 4 cm x 3.2 cm cyst in the left ovary. Electronically Signed: Dany Monson MD at 10:30 EDT , Transvaginal US 04/07/23 10:53 IMPRESSION: Status post hysterectomy. Bilateral ovarian cysts left greater than right. Electronically Signed: Dany Monson MD at 12:04 EDT , Discharge Plan Triage Chief Complaint: Complaint ED Provider: Chato Eaton Dx/Rx/DC Orders Clinical Impression: Ovarian cyst, Dysuria, Back pain Instructions: ED Back Pain (Acute or Chronic), ED Dysuria, Uncertain Cause (Adult), ED Ovarian Cyst Prescriptions: New hydrocodone-acetaminophen 5-325 mg tablet 1 tab PO Q6H PRN PRN (Reason: Pain) 3 Days Qty: 10 0RF ondansetron 4 mg tablet,disintegrating 4 mg PO Q6H PRN (Reason: nausea and vomiting) Qty: 20 0RF No Action albuterol sulfate [Ventolin HFA] 1 INHALER inhaler 2 puff inhalation Q4H PRN PRN (Reason: Sob &/Or Wheezing) omeprazole 20 MG tablet,delayed release (DR/EC) 20 mg PO DAILY ondansetron [Zofran ODT] 4 mg Tablet,Disintegrating 4 mg PO Q8H PRN (Reason: Nausea) famotidine [Pepcid] 20 mg tablet 20 mg PO DAILY Qty: 20 0RF hydrocodone-acetaminophen [hydrocodone-acetaminophen] 1 TABLET tablet 1 tab PO Q6H PRN PRN (Reason: Pain) 3 Days Qty: 10 0RF diazepam [diazepam] 5 MG tablet 5 mg PO Q8 PRN (Reason: Muscle Spasm) Qty: 12 0RF promethazine 25 mg tablet 25 mg PO Q6H PRN (Reason: nausea and vomiting) Qty: 14 0RF pantoprazole [Protonix] 40 mg tablet,delayed release (DR/EC) 40 mg PO DAILY Qty: 10 0RF ondansetron 4 mg tablet,disintegrating 4 mg PO Q8H PRN (Reason: nausea and vomiting) Qty: 10 0RF dicyclomine 20 mg tablet 20 mg PO BID PRN (Reason: abdominal cramping) Qty: 10 0RF Primary Care Provider: Liborio Arceo Referrals: Madison Gorman DO [Med Staff - Active Staff] - As soon as possible Liborio Arceo MD [[facility]] - Disposition Disposition: Home, Self Care
[2023-04-07] MEDS: Ketorolac 30 MG/ML Syringe IV (09:49)
[2023-04-07] MEDS: Ondansetron 4 MG/2 ML Vial IV ×2 (09:50→11:03)
[2023-04-07] MEDS: 0.9% Normal Saline 1,000 ML 250 ML IV (09:50)
[2023-04-07 09:54] LABS: Mucous, Urine 0 SEEN /hpf (<or=2+); White Blood Cells 0 SEEN /hpf (0-5)
[2023-04-07 09:55] LABS: Absolute Lymphocyte Count 1.87 X10^3/uL (0.83-4.51); Absolute Neutrophil Count 7.3 X10^3/uL (2.0-7.7); Basophil# 0.07 X10^3/uL; Basophil% 0.7 % (0-1); Eosinophil# 0.05 X10^3/uL; Eosinophils% 0.5 % (0-5); Hematocrit 48.9 % (37-47); Hemoglobin 17.3 g/dL (12.0-15.0); Lymphocyte # 1.87 X10^3/ul (0.83-4.51); Lymphocyte % 18.5 % (19-41); Mean Corp Hgb Conc 35.4 g/dL (32-36); Mean Corpuscular Hgb 35.2 pg (27.0-32.0); Mean Corpuscular Volume 99.6 fL (81-99); Mean Platelet Vol. 10.9 fl (6.2-12.0); Monocyte# 0.79 X10^3/uL; Monocyte% 7.8 % (0-10); NRBC Flagged by Analyzer 0 % (0-5); Neutrophil # 7.31 X10^3/uL (2.7-7.7); Neutrophil % 72.1 % (47-70); Platelet Count 201 K/mm3 (150-450); RBC Distribution Width CV 12.8 % (11.6-14.6); RBC Distribution Width SD 47.4 fl (35.1-43.9); Red Blood Count 4.91 M/mm3 (4.2-5.4); White Blood Count 10.1 K/mm3 (4.4-11.0)
[2023-04-07 09:57] LABS: Color, Urine Yellow (Yellow); Glucose, Dipstick Normal (Normal); Ketone-Dipstick Negative (Negative); Leukocyte Esterase-Dipstick Negative /ul (Negative); Nitrite-Dipstick Negative (Negative); Occult Blood-Urine 150 /ul (Negative); Protein-Dipstick 100 mg/dl (Negative); Specific Gravity, Urine 1.005 (1.002-1.030); Urine Bilirubin Dipstick Negative (Negative); Urine Clarity Sl. Cloudy (Clear); Urine Urobilinogen Normal (Normal)
[2023-04-07 10:01] LABS: Internal QC Validated? YES +Cl - CLEAR BKGD; Pregnancy, Serum, hCG Quali. NEGATIVE Negative
[2023-04-07 10:08] LABS: Anion Gap 7 (5-15); BUN 7 mg/dL (7-18); BUN/Creat Ratio 10.8 RATIO (10-20); Bacteria 1+ /hpf (None Seen); Calcium,Total 8.8 mg/dL (8.5-10.1); Chloride 106 mmol/L (98-107); Creatinine, Serum 0.65 mg/dL (0.55-1.02); EST Glomerular Filtration Rate 103 mL/min (>60); Est Glom Filt Rate - Afr Amer 125 mL/min (>60); Estimated Creatinine Clearance 94.21 ml/min; Glucose 101 mg/dL (74-106); Red Blood Cells-Urine 10-25 SEEN /hpf (0-5); Sodium Level 138 mmol/L (136-145); Squamous Epithelial Cells - UA 0-5 SEEN /hpf (5-10)
--- NOTE | 2023-04-07 10:10 | CT_ITS ---
STUDY: CT ABDOMEN AND PELVIS WITHOUT CONTRAST REASON FOR EXAM: Female, 47 years old. Flank pain RADIATION DOSAGE (If Supplied By Facility): CTDIvol = ( 6.20 ) mGy, DLP = ( 306.77 ) mGycm TECHNIQUE: Transaxial images were obtained from the dome of the diaphragm to the symphysis pubis without oral contrast, and without intravenous contrast. Sagittal and coronal images were reconstructed. Individualized dose optimization techniques were used for this CT. COMPARISON: None. FINDINGS: The visualized lung bases are unremarkable. The visualized portions of the heart are within normal limits. Normal liver. Normal gallbladder and extrahepatic biliary system. Normal spleen. Normal pancreas. Normal bilateral adrenal glands. Normal right kidney. Normal left kidney. Normal visualized stomach. Normal small intestine. Normal colon. The appendix is visualized and appears normal. There is scattered atherosclerotic calcification of the abdominal aorta, without a demonstrated aneurysm. Normal inferior vena cava. Normal retroperitoneum. Normal urinary bladder. There is a 4 cm x 3.2 cm cyst in the left ovary. Follicles are seen in the right There is a small umbilical hernia containing fat. Normal osseous structures. CT/Abdomen/Pelvis without Cont IMPRESSION: 4 cm x 3.2 cm cyst in the left ovary. Electronically Signed: Dany Monson MD at 10:30 EDT ,
--- NOTE | 2023-04-07 10:53 | US_ITS ---
STUDY: ULTRASOUND OF THE FEMALE PELVIS - COMPLETE REASON FOR EXAM: Female, 47 years old. Pain, cyst LMP: Patient is status post hysterectomy. TECHNIQUE: Transvaginal TECHNICAL QUALITY: Adequate. COMPARISON: Comparison is made with prior CT scan pelvis done earlier in the day. FINDINGS: The patient is status post hysterectomy. The right ovary is visualized. The right ovary measures 3.5 cm x 2.4 cm x 2.8 cm. There is a 2.6 cm x 1.8 cm x 1.9 cm right ovarian cyst. There is no visualized right adnexal mass or complex lesion. There is normal arterial and normal venous vascularity. The left ovary is visualized. The left ovary measures 4.3 cm x 3.6 cm x 3.1 cm. There is a 3.1 cm x 3 cm x 3.3 cm cyst in the left ovary. There is no visualized left adnexal mass or complex lesion. There is normal arterial and normal venous vascularity. There is no fluid in the cul-de-sac. US/Transvaginal Non- IMPRESSION: Status post hysterectomy. Bilateral ovarian cysts left greater than right. Electronically Signed: Dany Monson MD at 12:04 EDT ,
[2023-04-07] MEDS: Morphine 4 MG/ML Syringe IV (11:03)
[2023-04-07 12:16] VITALS: BP 168/89; PULSE 101; RESP 16; O2SAT 97
[2023-04-07 12:32] VITALS: BP 160/89; PULSE 101; RESP 16; O2SAT 97
== END 2023-04-07 12:33 | disposition home or self-care (01) ==
PROVIDERS: Emergency Provider Emergency Medicine; PCP Family Medicine; Visit Provider Emergency Medicine
DX: N83.202 Unspecified ovarian cyst, left side (principal); N83.201 Unspecified ovarian cyst, right side; M54.50 Low back pain, unspecified; R30.0 Dysuria; R11.2 Nausea with vomiting, unspecified; F17.210 Nicotine dependence, cigarettes, uncomplicated; Z79.899 Other long term (current) drug therapy; Z87.442 Personal history of urinary calculi; Z90.710 Acquired absence of both cervix and uterus
CPT/HCPCS: 74176; 76830; 80048; 81001; 82962; 84703; 85025; 93976; 96361; 96374; 96375; 99283; 99284; J7030; A4216; J2405

== ENCOUNTER 2023-04-07 18:20 | Emergency (ER) | payer BC, SELFPAY ==
[2023-04-07 18:21] VITALS: BP 165/103; PULSE 111; RESP 16; TEMP 36.8; O2SAT 99
[2023-04-07 18:24] VITALS: BMI 18.0
--- NOTE | 2023-04-07 18:44 | ED.RN ---
pt back with c/o nausea vomiting, shakes since left here this am reports that unable to keep anything down. no emesis noted but pt with gagging/dry heaving at times during assessment. pt shakey and denies any drug use or that drinks daily. pain still to b/l lower flank/back area.
--- NOTE | 2023-04-07 18:46 | NURSING ---
pt also wanting to address sore tongue stated, noone looked in my mouth even last time and its from all the violent puking pablo been doing. no coating obs but tongue reddened on inspection
--- NOTE | 2023-04-07 18:59 | EDS_ITS ---
HPI History of Present Illness Chief Complaint: Nausea/Vomiting Informant: patient Onset/Context/Timing Onset: Days Context: Gradual Onset Narrative Narrative: Patient presents secondary to nausea and vomiting. She states this has been ongoing for several days and she cannot keep anything down. She is worried that her blood sugars dropping low. She is complaining of pain in her back and abdomen. Patient was seen in the ER for the same symptoms earlier today. That work-up was reviewed which includes laboratory evaluation, urinalysis, CT scan which revealed left ovarian cyst, and a pelvic ultrasound which revealed left greater than right ovarian cyst. Patient was discharged with Lampe and Zofran. She has not yet been able to fill these prescriptions but returns to the ER due to continued vomiting. [facility] Medical History COVID History of hyperactive airway disease History of ureterolithiasis Home Medications albuterol sulfate 90 mcg/actuation aerosol inhaler (Ventolin HFA) 2 puff inhal ation Q4H PRN PRN Sob &/Or Wheezing 01/28/17 [History Last Taken Unknown] omeprazole 20 mg tablet,delayed release 20 mg PO DAILY 04/08/19 [History Last Taken Unknown] famotidine 20 mg tablet (Pepcid) 20 mg PO DAILY #20 tabs 08/31/21 [Rx Last Taken Unknown] ondansetron 4 mg disintegrating tablet 4 mg PO Q8H PRN Nausea 08/31/21 [History Last Taken Unknown] diazepam 5 mg tablet 5 mg PO Q8 PRN Muscle Spasm #12 tabs 11/15/21 [Rx Last Taken Unknown] hydrocodone-acetaminophen 5-325mg 5mg-325mg 1 tab PO Q6H PRN PRN Pain 3 days #10 TABLETS 11/15/21 [Rx Last Taken Unknown] promethazine 25 mg tablet 25 mg PO Q6H PRN nausea and vomiting #14 tabs 05/03/22 [Rx Last Taken Unknown] dicyclomine 20 mg tablet 20 mg PO BID PRN abdominal cramping #10 tabs 07/04/22 [Rx Last Taken Unknown] ondansetron 4 mg disintegrating tablet 4 mg PO Q8H PRN nausea and vomiting #10 tabs 07/04/22 [Rx Last Taken Unknown] pantoprazole 40 mg tablet,delayed release (Protonix) 40 mg PO DAILY #10 tabs 07/04/22 [Rx Last Taken Unknown] hydrocodone-acetaminophen 5-325mg 5mg-325mg 1 tab PO Q6H PRN PRN Pain 3 days #10 TABLETS 04/07/23 [Rx Last Taken Unknown] ondansetron 4 mg disintegrating tablet 4 mg PO Q6H PRN nausea and vomiting #20 tabs 04/07/23 [Rx Last Taken Unknown] prochlorperazine maleate 10 mg tablet (Compazine) 10 mg PO Q8H PRN nausea and vomiting #10 tabs 04/07/23 [Rx Last Taken Unknown] Allergy/AdvReac Type Severity Reaction Status Date / Time bupropion HCl AdvReac Other Verified 04/07/23 18:25 [From Wellbutrin] doxycycline AdvReac Other Verified 04/07/23 18:25 tramadol AdvReac Other Verified 04/07/23 18:25 Surgical History H/O: hysterectomy Hx of tonsillectomy Social History Smoking Status: Current every day smoker tobacco type: cigarettes ROS ROS ED Constitutional Constitutional ED: Denies chills or fever(s) Eyes Eyes: Denies change in vision or discharge from eye(s) ENT ENT ED: Reports sore throat; Denies discharge from eye(s) or rhinorrhea Cardiovascular Cardiovascular: Denies chest pain or palpitations Respiratory/Chest Respiratory/Chest: Denies cough or dyspnea Gastrointestinal Gastrointestinal: Reports abdominal pain, nausea and vomiting Genitourinary Genitourinary ED: Denies dysuria Musculoskeletal Musculoskeletal: Reports back pain; Denies extremity pain Integumentary Denies Abrasions or rash Neurologic Neurologic: Reports weakness; Denies headache(s) Psychiatric Psychiatric: Denies anxiety or depression Allergic/Immunologic Allergic/Immunologic ED: Denies lip swelling or urticaria EXAM Physical Exam Const Vital Signs: 04/07/23 18:21 Temperature 98.2 F Temperature Source Temporal Pulse Rate 111 H Respiratory Rate 16 Blood Pressure 165/103 H Blood Pressure Mean 123 Pulse Ox 99 Oxygen Delivery Method Room Air Positive well nourished and well developed General Appearance ED: well developed HEENT Reports dry mucous membranes Mouth ED: Yes dry mucous membranes Mouth: dry mucous membranes Eyes EOMs intact bilaterally Chest Wall inspection of chest normal and palpation of chest normal Resp normal respiratory effort Cardio regular rate and regular rhythm GI GI Narrative: Abdomen soft with mild diffuse tenderness palpation. Hypoactive bowel sounds. No guarding or rebound. Back/Spine Back/Spine Narrative: Tenderness in the thoracic and lumbar paraspinal region. Extremity normal to inspection Neuro no sensory deficits noted Sensory Exam: sensory level loss detected Psych mental status grossly normal Skin no rashes or lesions noted MDM MDM MDM Narrative Medical decision making narrative: Patient's work-up from earlier today is reviewed. Lab work is not repeated but blood sugar is ordered. Patient given IV fluids along with Toradol, Compazine, and Benadryl. Lab Data Labs: Laboratory Results - last 24 hr 04/07/23 19:34 POC Glucose 102 Treatment and Re-Evaluation :: On repeat evaluation patient does report feeling improved. She does feel somewhat sleepy from the Benadryl. She is able to tolerate ice chips at this time. Prescription for Compazine will be sent to the hospital pharmacy to be filled prior to her leaving the ER. Return instructions given. Discharge Plan Triage Chief Complaint: Nausea/Vomiting ED Provider: Lyubov Lara Dx/Rx/DC Orders Clinical Impression: Vomiting Instructions: ED Vomiting (Adult) Prescriptions: New prochlorperazine maleate [Compazine] 10 mg tablet 10 mg PO Q8H PRN (Reason: nausea and vomiting) Qty: 10 0RF No Action albuterol sulfate [Ventolin HFA] 1 INHALER inhaler 2 puff inhalation Q4H PRN PRN (Reason: Sob &/Or Wheezing) omeprazole 20 MG tablet,delayed release (DR/EC) 20 mg PO DAILY ondansetron [Zofran ODT] 4 mg Tablet,Disintegrating 4 mg PO Q8H PRN (Reason: Nausea) famotidine [Pepcid] 20 mg tablet 20 mg PO DAILY Qty: 20 0RF hydrocodone-acetaminophen [hydrocodone-acetaminophen] 1 TABLET tablet 1 tab PO Q6H PRN PRN (Reason: Pain) 3 Days Qty: 10 0RF diazepam [diazepam] 5 MG tablet 5 mg PO Q8 PRN (Reason: Muscle Spasm) Qty: 12 0RF promethazine 25 mg tablet 25 mg PO Q6H PRN (Reason: nausea and vomiting) Qty: 14 0RF pantoprazole [Protonix] 40 mg tablet,delayed release (DR/EC) 40 mg PO DAILY Qty: 10 0RF ondansetron 4 mg tablet,disintegrating 4 mg PO Q8H PRN (Reason: nausea and vomiting) Qty: 10 0RF dicyclomine 20 mg tablet 20 mg PO BID PRN (Reason: abdominal cramping) Qty: 10 0RF hydrocodone-acetaminophen 5-325 mg tablet 1 tab PO Q6H PRN PRN (Reason: Pain) 3 Days Qty: 10 0RF ondansetron 4 mg tablet,disintegrating 4 mg PO Q6H PRN (Reason: nausea and vomiting) Qty: 20 0RF Primary Care Provider: Liborio Arceo Referrals: Liborio Arceo MD [Primary Care Provider] - 3-5 Days if not improving Disposition Disposition: Home, Self Care
[2023-04-07] MEDS: DiphenhydrAMINE 50 MG/ML Syringe 12.5 MG IV (19:22)
[2023-04-07] MEDS: 0.9% Normal Saline 1,000 ML 1000 ML IV (19:22)
[2023-04-07] MEDS: proCHLORPERazine 10 MG/2 ML Vial 5 MG IV (19:23)
[2023-04-07] MEDS: Ketorolac 30 MG/ML Syringe IV (19:26)
[2023-04-07 19:56] LABS: Bedside Glucose 102 mg/dL (74-106)
[2023-04-07] MEDS: 0.9% Normal Saline 1,000 ML 150 ML IV (20:21)
[2023-04-07 20:58] VITALS: BP 159/98; PULSE 98; RESP 16; O2SAT 96
--- NOTE | 2023-04-07 21:58 | ED.RN ---
PT HAD MEDS TO BED ORDERED, WAS ASKED TO WAIT IN ED WAITING ROOM PHARMACY WOULD BRING HER MEDS UP TO HER. PT LEFT IMMEDIATELY, WAS NOT ANYWHERE TO BE FOUND WHEN PHARMACY ARRIVED WITH MEDS.
== END 2023-04-07 21:10 | disposition home or self-care (01) ==
PROVIDERS: Emergency Provider Emergency Medicine; PCP Family Medicine; Visit Provider Emergency Medicine
DX: R11.2 Nausea with vomiting, unspecified (principal); F17.210 Nicotine dependence, cigarettes, uncomplicated; M54.9 Dorsalgia, unspecified; R10.9 Unspecified abdominal pain
CPT/HCPCS: 82962; 96361; 96374; 96375; 99283; J7030; A4216

== ENCOUNTER 2023-11-18 07:13 | Inpatient (IN) | payer BC, SELFPAY ==
[2023-11-18 07:15] VITALS: BP 131/90; PULSE 68; RESP 16; TEMP 35.2; O2SAT 96
--- OUTSIDE RECORDS SUMMARY | 2023-11-18 08:01 | XMS RPT_ITS | CCD ---
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 Patient was referred to emergency room. Patient went to [facility]. She had a normal CMP. She had a urinalysis that showed trace blood only. She had a CBC that was unremarkable. She had a CT of the abdomen pelvis with contrast that showed a large ovarian cyst on the left side only. No other acute on abdominal issues ongoing. Did follow-up with [facility] who treated her with NSAIDs but she never started the medication. At this time the patient continues to have abdominal pain. More persistent in the left lower quadrant. Also in the suprapubic area. Stating that the pain will radiate around to her back. Causing nausea and vomiting. She states that the ER gave her opioids which caused her to have constipation. Stating that she has not had a bowel movement other than a few hard stools, described as rocks, over the past 2 weeks. She is not taking any stool softeners or laxatives. She states that she does not have much of an appetite. She had an episode of vomiting prior to our encounter today. She denies any fevers or chills. Denies that her pain gets worse or better with food intake. Overall she has been has been frustrated with this pain. She does mention that she has been able to perform construction around her house as she has been upgrading. She is due for colon cancer screening Patient has a history of vaginal hysterectomy in 2013, tube ligation, hysteroscopy DANDC, uterine ablation, colonoscopy in 2012. Requesting refill of her medication including Atarax for anxiety, trazodone that she uses as needed for sleep. Also uses Flexeril for lower back pain. Past medical history, appointments, medications, allergies reviewed. EXAM: BP 128/88 Pulse 117 Resp 16 Wt 59.4 kg (131 lb) LMP 12/26/2013 SpO2 98% BMI 21.80 kg/m? General Appearance: Well appearing, alert, in no acute distress, well-hydrated, well nourished.. Lungs: Lungs clear to auscultation. No wheezing, rhonchi, rales.. Heart: RRR without murmur, gallop, or rubs. No ectopy. Abdomen: Abdomen is soft, moderate to severe left lower quadrant pain with light palpation, moderate suprapubic tenderness. No right upper quadrant tenderness. Bowel sounds are present. ASSESSMENT/PLAN: 1. Left lower quadrant abdominal pain - ICD9: 789.04, ICD10: R10.32 (primary diagnosis) -Discussed with patient the etiologies include constipation, colitis, secondary pain to ovarian cyst. We will get a KUB to further assess her bowels. We will get a stat CBC to evaluate for diverticulitis. I discussed with her that we should get her to see gastroenterology for second opinion also needing colon cancer screening. I discussed with her that she should go to the emergency room immediately if she has worsening left lower abdominal pain. We will start her MiraLAX to get her bowels moving. Refilled Zofran for nausea. - CONSULT TO GASTROENTEROLOGY - XR ABDOMEN 1V SUPINE - CBC + DIFF - C-REACTIVE PROTEIN (CRP) 2. Nausea and vomiting, unspecified vomiting type - ICD9: 787.01, ICD10: R11.2 -See #1 - CONSULT TO GASTROENTEROLOGY 3. Acute constipation - ICD9: 564.00, ICD10: K59.00 -Secondary to opioid use - XR ABDOMEN 1V SUPINE - POLYETHYLENE GLYCOL 3350 17 GRAM/DOSE ORAL POWDER 4. Ovarian cyst, left - ICD9: 620.2, ICD10: N83.202 -Encourage patient to return to [facility] for second opinion 6. Chronic insomnia - ICD9: 780.52, ICD10: F51.04 -Stable, refilled - TRAZODONE 50 MG TABLET 7. Situational anxiety - ICD9: 300.09, ICD10: F41.8 -Stable, refill - HYDROXYZINE HCL 50 MG TABLET Joshua Azar APRN.CNP This note was partly generated using [employer] voice recognition dictation and may contain some misspelled or inaccurate words missed on review. [facility] 04-25-2023 Instructions Joshua Azar APRN.CNP - 04/25/2023 10:39 AM EDT Start Miralax Get xray of the abdomen Refills sent Schedule with gastroenterology If you abdomen pain gets worse, you need to go to the ER Get blood work today Joshua Azar APRN.HENRY documented in this encounter [facility] 04-25-2023 History of Presen t illness Narrative Chief Complaint Patient presents with: Recheck: In ER about 2 weeks ago for Vomiting, back and stomach pain. No improvement HPI Belen Jasmine is a 47 year old female who presents here today for ER follow up Patient is here for emergency room follow-up. Patient initially went to [facility] for complaints of abdominal pain, abdominal swelling and vomiting. Patient was referred to emergency room. Patient went to [facility]. She had a normal CMP. She had a urinalysis that showed trace blood only. She had a CBC that was unremarkable. She had a CT of the abdomen pelvis with contrast that showed a large ovarian cyst on the left side only. No other acute on abdominal issues ongoing. Did follow-up with [facility] who treated her with NSAIDs but she never started the medication. At this time the patient continues to have abdominal pain. More persistent in the left lower quadrant. Also in the suprapubic area. Stating that the pain will radiate around to her back. Causing nausea and vomiting. She states that the ER gave her opioids which caused her to have constipation. Stating that she has not had a bowel movement other than a few hard stools, described as rocks, over the past 2 weeks. She is not taking any stool softeners or laxatives. She states that she does not have much of an appetite. She had an episode of vomiting prior to our encounter today. She denies any fevers or chills. Denies that her pain gets worse or better with food intake. Overall she has been has been frustrated with this pain. She does mention that she has been able to perform construction around her house as she has been upgrading. She is due for colon cancer screening Patient has a history of vaginal hysterectomy in 2013, tube ligation, hysteroscopy D&C, uterine ablation, colonoscopy in 2012. Requesting refill of her medication including Atarax for anxiety, trazodone that she uses as needed for sleep. Also uses Flexeril for lower back pain. Past medical history, appointments, medications, allergies reviewed. EXAM: BP 128/88 Pulse 117 Resp 16 Wt 59.4 kg (131 lb) LMP 12/26/2013 SpO2 98% BMI 21.80 kg/m General Appearance: Well appearing, alert, in no acute distress, well-hydrated, well nourished.. Lungs: Lungs clear to auscultation. No wheezing, rhonchi, rales.. Heart: RRR without murmur, gallop, or rubs. No ectopy. Abdomen: Abdomen is soft, moderate to severe left lower quadrant pain with light palpation, moderate suprapubic tenderness. No right upper quadrant tenderness. Bowel sounds are present. ASSESSMENT/PLAN: 1. Left lower quadrant abdominal pain - ICD9: 789.04, ICD10: R10.32 (primary diagnosis) -Discussed with patient the etiologies include constipation, colitis, secondary pain to ovarian cyst. We will get a KUB to further assess her bowels. We will get a stat CBC to evaluate for diverticulitis. I discussed with her that we should get her to see gastroenterology for second opinion also needing colon cancer screening. I discussed with her that she should go to the emergency room immediately if she has worsening left lower abdominal pain. We will start her MiraLAX to get her bowels moving. Refilled Zofran for nausea. - CONSULT TO GASTROENTEROLOGY - XR ABDOMEN 1V SUPINE - CBC + DIFF - C-REACTIVE PROTEIN (CRP) 2. Nausea and vomiting, unspecified vomiting type - ICD9: 787.01, ICD10: R11.2 -See #1 - CONSULT TO GASTROENTEROLOGY 3. Acute constipation - ICD9: 564.00, ICD10: K59.00 -Secondary to opioid use - XR ABDOMEN 1V SUPINE - POLYETHYLENE GLYCOL 3350 17 GRAM/DOSE ORAL POWDER 4. Ovarian cyst, left - ICD9: 620.2, ICD10: N83.202 -Encourage patient to return to [facility] for second opinion 6. Chronic insomnia - ICD9: 780.52, ICD10: F51.04 -Stable, refilled - TRAZODONE 50 MG TABLET 7. Situational anxiety - ICD9: 300.09, ICD10: F41.8 -Stable, refill - HYDROXYZINE HCL 50 MG TABLET Joshua Azar APRN.INTERIOR HORTICULTURIST This note was partly generated using [employer] voice recognition dictation and may contain some misspelled or inaccurate words missed on review. documented in this encounter [facility] 04-07-2023 Note HNO ID: [id number] Author: Danette Ball APRN.INTERIOR HORTICULTURIST Service: ? Author Type: Nurse Practitioner Type: Progress Notes Filed: 04/07/2023 9:15 AM Note Text: Patient came in with complaints of about a weeks worth of burning and severe pain. Patient says she has severe abdominal pain lower back pain and abdominal swelling. Patient is also vomiting. Patient is doubled over crying. Patient could barely get herself up on the table. Upon trying to attempt to palpate patient was in extreme pain at this time patient is being referred to the emergency room for an evaluation. Patient prefers to take herself co-pay was refunded. [facility] 01-10-2023 Miscellaneous Notes Pt notified. Pt states that the Augmentin was making her puke and shit . Nayely Cross Ma I would suggest a course of Zithromax and using Symbicort inhaler; as ordered Kasey Joy MD Patient calls distraught that EC ordered Augmentin on 01/04/2023 for sinobronchitis after notifying them that it would cause vomiting and diarrhea. Patient reports that she didn't complete the course of antibiotics d/t vomiting and diarrhea but become annoyed when asked how many tablets were taken because course should have been completed yesterday. Patient never responded to how many tablets were taken. Patient continues to have chest congestion with yellow mucus. Body Aches. Patient reports she feels like hell. Afebrile. Patient asking for provider recommendation. Attempted to offer appointment but call was disconnected by patient. Please review and advise, Rima Perez RN documented in this encounter [facility] 01-04-2023 Note HNO ID: [id number] Author: Severino Khalil APRN.INTERIOR HORTICULTURIST Service: ? Author Type: Nurse Practitioner Type: Progress Notes Filed: 01/04/2023 4:58 PM Note Text: Subjective HPI Nontoxic-appearing female presents urgent care accompanied by significant other. Chief complaint cough chest congestion sinus pressure. Duration of symptoms 1 month. Associated symptoms worsening sinus pressure and cough. Patient states most prominent symptom today is sinus pressure cough. Has used some OTC medications these have not helped. Did finish Levaquin at the end of November. Risk factors smoker. History of sinobronchitis. This is similar. Denies any fever body aches chills productive cough shortness of breath pleuritic pain hemoptysis nausea vomiting abdominal pain change in bowel or bladder habits. Past medical history prescription medication use and allergies reviewed. .Patient presents with: Cough: Chest congestion, sinus, sore throat x 1 month PAST MEDICAL HISTORY Diagnosis Date - Abnormal Pap smear of cervix - C. difficile enteritis 05/23/2018 - Diverticulitis - Dysmenorrhea - Irritable bowel syndrome with constipation 02/08/2013 PAST SURGICAL HISTORY Procedure Laterality Date - COLONOSCOPY FLX DX W/COLLJ SPEC WHEN PFRMD 02/26/13 Colonoscopy /incomplete ba enema ordered - CONIZATION CERVIX W/WO DANDC RPR ELTRD EXC LEEP-Cervix - LAPS ABD PRTMANDOMENTUM DX W/WO SPEC BR/WA SPX Laparoscopy - PAST SURGICAL HISTORY OF Hysteroscopy DANDC - PAST SURGICAL HISTORY OF Uterine Ablation - TONSILLECTOMY PRIMARY/SECONDARY Tonsillectomy - TUBAL LIGATION, 2004 - VAGINAL HYSTERECTOMY UTERUS 250 GM/< 12/2013 ALLERGIES Doxycycline, Flagyl [Metronidazole Hcl], Meloxicam, Paxil [Paroxetine Hcl], Ultram [Tramadol Hcl], and Wellbutrin [Bupropion Hcl] MEDICATIONS - ondansetron orally disintegrating (ZOFRAN ODT) 4 mg disintegrating tablet Take 1 tablet by mouth every 6 hours as needed for nausea/vomiting. - albuterol HFA (PROVENTIL HFA, VENTOLIN HFA) 90 mcg/actuation inhaler Inhale 2 Puffs as instructed every 4 hours as needed for wheezing/shortness of breath. - cyclobenzaprine (FLEXERIL) 10 mg tablet TAKE 1 TABLET BY MOUTH THREE TIMES DAILY NEEDED FOR MUSCLE SPASMS OT NEEDED FOR PAIN - pantoprazole DR (PROTONIX) 40 mg tablet Take 1 tablet by mouth daily before breakfast. Take as needed for GI upset - traZODone (DESYREL) 50 mg tablet Take 1 tablet by mouth daily at bedtime. - hydrOXYzine HCl (ATARAX) 50 mg tablet Take 1-2 tablets by mouth every 6 hours as needed for anxiety. - promethazine (PHENERGAN) 25 mg tablet Take 1 tablet by mouth every 6 hours as needed. - lidocaine 4 % gel 1 application of small amount to affected area up to 7 times a day as needed for pain control. - lidocaine (XYLOCAINE) 2 % jelly Apply 1 application to affected area as needed. - lidocaine (LMX) 4 % cream Apply to affected area as needed. 1 application of small amount to affected area up to 7 times a day as needed for pain control. - loratadine (CLARITIN) 10 mg tablet Take 1 tablet by mouth once daily. - fluticasone (FLONASE) 50 mcg/actuation nasal spray Use 2 Sprays in each nostril once daily. Rinse mouth after use. - albuterol HFA (PROAIR HFA) 90 mcg/actuation inhaler Inhale 2 Puffs as instructed every 4 hours as needed for wheezing/shortness of breath. - diphenhydrAMINE (BENADRYL) 12.5 mg/5 mL elixir Take 5 mL by mouth four times daily as needed (throat/tongue pain). - loperamide HCl (IMODIUM ORAL) Take by mouth as needed. - IBUPROFEN ORAL Take by mouth as needed. FAMILY HISTORY Problem Relation Age of Onset - Cancer Mother 78 - Cancer Father - Diabetes Maternal Grandmother - Cancer Maternal Grandfather - Cancer Maternal Aunt Social History Tobacco Use - Smoking status: Every Day Packs/day: 1.00 Years: 20.00 Pack years: 20.00 Types: Cigarettes - Smokeless tobacco: Never Substance Use Topics - Alcohol use: No - Drug use: No BP 148/108 Pulse 110 Temp 36.5 ?C (97.7 ?F) Resp 21 Wt 59.1 kg (130 lb 3.2 oz) LMP 12/26/2013 SpO2 97% BMI 21.67 kg/m? Review of Systems Constitutional: Negative for chills, fever and malaise/fatigue. HENT: Positive for congestion, sinus pain and sore throat. Negative for ear discharge and ear pain. Eyes: Negative for blurred vision, pain, discharge and redness. Respiratory: Positive for cough. Negative for hemoptysis, sputum production, shortness of breath, wheezing and stridor. Cardiovascular: Positive for chest pain. Gastrointestinal: Negative for abdominal pain, diarrhea, nausea and vomiting. Musculoskeletal: Negative for myalgias. Skin: Negative for itching and rash. Neurological: Negative for dizziness and headaches. Objective Physical Exam Constitutional: General: She is not in acute distress. Appearance: She is not diaphoretic. HENT: Head: Normocephalic. Jaw: No trismus, tenderness, swellin (more content not included)... [facility] 01-04-2023 History of Presen t illness Narrative Subjective HPI Nontoxic-appearing female presents urgent care accompanied by significant other. Chief complaint cough chest congestion sinus pressure. Duration of symptoms 1 month. Associated symptoms worsening sinus pressure and cough. Patient states most prominent symptom today is sinus pressure cough. Has used some OTC medications these have not helped. Did finish Levaquin at the end of November. Risk factors smoker. History of sinobronchitis. This is similar. Denies any fever body aches chills productive cough shortness of breath pleuritic pain hemoptysis nausea vomiting abdominal pain change in bowel or bladder habits. Past medical history prescription medication use and allergies reviewed. .Patient presents with: Cough: Chest congestion, sinus, sore throat x 1 month PAST MEDICAL HISTORY Diagnosis Date Abnormal Pap smear of cervix C. difficile enteritis 05/23/2018 Diverticulitis Dysmenorrhea Irritable bowel syndrome with constipation 02/08/2013 PAST SURGICAL HISTORY Procedure Laterality Date COLONOSCOPY FLX DX W/COLLJ SPEC WHEN PFRMD 02/26/13 Colonoscopy /incomplete ba enema ordered CONIZATION CERVIX W/WO D&C RPR ELTRD EXC LEEP-Cervix LAPS ABD PRTM&OMENTUM DX W/WO SPEC BR/WA SPX Laparoscopy PAST SURGICAL HISTORY OF Hysteroscopy D&C PAST SURGICAL HISTORY OF Uterine Ablation TONSILLECTOMY PRIMARY/SECONDARY <AGE 10 Tonsillectomy TUBAL LIGATION, 2004 VAGINAL HYSTERECTOMY UTERUS 250 GM/< 12/2013 ALLERGIES Doxycycline, Flagyl [Metronidazole Hcl], Meloxicam, Paxil [Paroxetine Hcl], Ultram [Tramadol Hcl], and Wellbutrin [Bupropion Hcl] MEDICATIONS ondansetron orally disintegrating (ZOFRAN ODT) 4 mg disintegrating tablet Take 1 tablet by mouth every 6 hours as needed for nausea/vomiting. albuterol HFA (PROVENTIL HFA, VENTOLIN HFA) 90 mcg/actuation inhaler Inhale 2 Puffs as instructed every 4 hours as needed for wheezing/shortness of breath. cyclobenzaprine (FLEXERIL) 10 mg tablet TAKE 1 TABLET BY MOUTH THREE TIMES DAILY NEEDED FOR MUSCLE SPASMS OT NEEDED FOR PAIN pantoprazole DR (PROTONIX) 40 mg tablet Take 1 tablet by mouth daily before breakfast. Take as needed for GI upset traZODone (DESYREL) 50 mg tablet Take 1 tablet by mouth daily at bedtime. hydrOXYzine HCl (ATARAX) 50 mg tablet Take 1-2 tablets by mouth every 6 hours as needed for anxiety. promethazine (PHENERGAN) 25 mg tablet Take 1 tablet by mouth every 6 hours as needed. lidocaine 4 % gel 1 application of small amount to affected area up to 7 times a day as needed for pain control. lidocaine (XYLOCAINE) 2 % jelly Apply 1 application to affected area as needed. lidocaine (LMX) 4 % cream Apply to affected area as needed. 1 application of small amount to affected area up to 7 times a day as needed for pain control. loratadine (CLARITIN) 10 mg tablet Take 1 tablet by mouth once daily. fluticasone (FLONASE) 50 mcg/actuation nasal spray Use 2 Sprays in each nostril once daily. Rinse mouth after use. albuterol HFA (PROAIR HFA) 90 mcg/actuation inhaler Inhale 2 Puffs as instructed every 4 hours as needed for wheezing/shortness of breath. diphenhydrAMINE (BENADRYL) 12.5 mg/5 mL elixir Take 5 mL by mouth four times daily as needed (throat/tongue pain). loperamide HCl (IMODIUM ORAL) Take by mouth as needed. IBUPROFEN ORAL Take by mouth as needed. FAMILY HISTORY Problem Relation Age of Onset Cancer Mother 78 Cancer Father Diabetes Maternal Grandmother Cancer Maternal Grandfather Cancer Maternal Aunt Social History Tobacco Use Smoking status: Every Day Packs/day: 1.00 Years: 20.00 Pack years: 20.00 Types: Cigarettes Smokeless tobacco: Never Substance Use Topics Alcohol use: No Drug use: No BP 148/108 Pulse 110 Temp 36.5 C (97.7 F) Resp 21 Wt 59.1 kg (130 lb 3.2 oz) LMP 12/26/2013 SpO2 97% BMI 21.67 kg/m Review of Systems Constitutional: Negative for chills, fever and malaise/fatigue. HENT: Positive for congestion, sinus pain and sore throat. Negative for ear discharge and ear pain. Eyes: Negative for blurred vision, pain, discharge and redness. Respiratory: Positive for cough. Negative for hemoptysis, sputum production, shortness of breath, wheezing and stridor. Cardiovascular: Positive for chest pain. Gastrointestinal: Negative for abdominal pain, diarrhea, nausea and vomiting. Musculoskeletal: Negative for myalgias. Skin: Negative for itching and rash. Neurological: Negative for dizziness and headaches. Objective Physical Exam Constitutional: General: She is not in acute distress. Appearance: She is not diaphoretic. HENT: Head: Normocephalic. Jaw: No trismus, tenderness, swelling or pain on movement. Nose: Right Sinus: Maxillary sinus tenderness present. Left Sinus: Maxillary sinus tenderness present. Mouth/Throat: Lips: [place]. Mouth: Mucous membranes are moist. Pharynx: Oropharynx is clear. No pharyngeal swelling, oropharyngeal exudate, posterior oropharyngeal erythema or uvula swelling. Eyes: Conjunctiva/sclera: Conjunctivae normal. Pupils: Pupils are equal, round, and reactive to light. Cardiovascular: Rate and Rhythm: Normal rate and regular rhythm. Heart sounds: Normal heart sounds. Pulmonary: Effort: Pulmonary effort is normal. No tachypnea, accessory muscle usage or respiratory distress. Breath sounds: Normal breath sounds. No stridor. No wheezing, rhonchi or rales. Abdominal: General: There is no distension. Palpations: Abdomen is soft. Tenderness: There is no abdominal tenderness. There is no guarding or rebound. Musculoskeletal: Cervical back: Normal range of motion and neck supple. No rigidity or tenderness. Lymphadenopathy: Cervical: No cervical adenopathy. Skin: General: Skin is warm and dry. Neurological: Mental Status: She is alert and oriented to person, place, and time. ASSESSMENT/PLAN: 1. Sinobronchitis - ICD9: 473.9, 490, ICD10: J32.9, J40 - AMOXICILLIN 875 MG-POTASSIUM CLAVULANATE 125 MG TABLET Patient diagnosed with sinobronchitis. Placed on Augmentin. Risk of [id number] antibiotic use discussed with patient. We discussed risk of C. difficile antibiotics. Will be use probiotic as instructed. Patient did have complaints of chest pain. States she has a crushing pressure on her chest. This has been present for the last few weeks. I did explain to the patient I am suspicious of some bronchitis for cause of discomfort however with patient's presenting symptoms I recommended patient be seen the ED for further evaluation care. Patient/significant other verbalized understanding agrees with plan of care. Severino Khalil APRN.HENRY documented in this encounter [facility] 01-04-2023 Miscellaneous Notes Called and left a detailed voicemail notifying patient of providers message. Hospital phone number was left in case patient had any questions or would like to schedule an appointment. Kellee Munguia RN Can you please call the patient and let her know that she needs to be seen with these reoccurring symptoms for further evaluation. She can either schedule an appointment with PCP team or go to express care. Thank you. Binta Metcalf APRN.HENRY Spoke with patient. She states she has been ill since the end of October with sinus symptoms and cough and has already taken two courses of antibiotics. She states she saw PCP on 12/05 and was started on Levaquin. She said the sinus symptoms improved a little but never went away. Body aches have been persistent. States I can't shake this crud . Says she had a few Levaquin left and started taking them a couple days ago and began having watery diarrhea two nights ago. She says she is staying hydrated with fluids Advised EC evaluation which she declined. Offered to schedule appointment with PCP which she declined. Gita Han RN documented in this encounter [facility] 01-03-2023 Miscellaneous Notes Noted Kasey Joy MD See note 12/31/22. Gita Han RN Ok for in office visit or phone visit? Pt does not have mychart. Nayely Cross Ma Belen Jasmine is calling Kasey Joy MD today with concern regarding sick and no fever diarrhea body aches and green and yellow mucus coughing and sneezing, headache Please call patient Phone numbers verified Patient has been identified by name and birthdate. Duration of symptoms: days Person calling: self Call patient at: on cell [phone] (home) [phone] (cell) Was an appointment scheduled: No Closing statement: Symptom Call: Thank you for calling [facility], your call is very important. A nurse will call in approximately 2-4 hours during business hours. If this is an emergency, please contact 911. Chantelle Morillo [facility] documented in this encounter [facility] 12-05-2022 Note HNO ID: [id number] Author: Kasey Joy MD Service: ? Author Type: Physician Type: Progress Notes Filed: 12/05/2022 3:59 PM Note Text: Chief Complaint Patient presents with: ED Follow-up HPI Belen Jasmine is a 47 year old female who presents here today for an ER follow up. Pt here today for a [facility] ER follow up from 11/30/22 due to chest pain. She states she went to ER, was evaluated, given IV, and discharged home. She said they didn't do anything for me just told me to quit smoking . She has not felt good for 2 months, been sick with cold and sinus issues. She has a lot of chest pressure and pain with coughing. She states she has been taking Augmentin from 11/18/22 for bronchitis but it caused GI upset so she has had to stop taking it off and on. She states she had the flu in the past. She states she can not take Prednisone it makes her shake inside and out . She says her throat hurts, ears and head hurt, wheezing and SOB. She is not taking anything for the cough or the chest pain but ibuprofen. She is using Phenergan and not able to keep that down. C/o pain with urination that started yesterday. Pt had hysterectomy. Has had issues in the past with moderate amount of blood in the urine but states she has not had that looked into further. [facility] ED visit notes: HPI History of Present Illness Chief Complaint: Chest Pain Narrative Narrative: 47-year-old female past medical history of being a smoker, presents with chest pressure that she is had for the last 2 to 3 days. She states that she keeps getting upper respiratory infections and has had this bug at least 4 times over the last 2 months. She saw a provider who started her on Augmentin and prednisone. She states that the Augmentin gave her diarrhea and nausea so she had to half the dosing each time. Additionally, she states that the prednisone made her very shaky and scared. She has had constant chest pressure for the last 2 to 3 days. She denies any exacerbating or alleviating factors. No leg swelling, no fevers or chills. She has an occasional cough and states that she has been using the inhaler that she was given when I need it . [facility] Narrative Medical decision making narrative: Nursing protocol chest pain work-up was pursued. EKG was obtained and interpreted by myself which demonstrates sinus tachycardia at 102 bpm without ectopy or acute ST changes, no STEMI. I reviewed her CBC which shows a normal white count of 8.9, hemoglobin slightly hemoconcentrated at 16.1, normal platelet count of 218. BMP shows normal electrolytes except chloride of 109, potassium is normal at 4.1, BUN low at 5 with creatinine 0.60. Glucose appropriately elevated at 110 with an anion gap normal at 9. Troponin which is 13, and this is greater than a 6-hour troponin as she has had chest pressure for the last 2 to 3 days. I reviewed her chest x-ray which shows no evidence of pneumonia or pneumothorax. At this point in time, I feel she can be discharged safely home with follow-up. I have low concern for pulmonary embolism as she has a normal heart rate currently, and her pulse ox is 97% on room air and she denies any pleuritic chest pain, or leg swelling. She was told to quit smoking, and to use her inhaler every 4-6 hours. She will continue her [id number] medications. Return instructions to the emergency department were reviewed. Disposition is discharged home in stable condition. IMPRESSION: No radiographic evidence of acute cardiopulmonary disease. Electronically Signed: Severino Cline MD at 19:36 EST Past medical history, appointments, medications, allergies reviewed. Previous Medical History PAST MEDICAL HISTORY Diagnosis Date Abnormal Pap smear of cervix C. difficile enteritis 05/23/2018 Diverticulitis Dysmenorrhea Irritable bowel syndrome with constipation 02/08/2013 Previous Surgical History PAST SURGICAL HISTORY Procedure Laterality Date COLONOSCOPY FLX DX W/COLLJ SPEC WHEN PFRMD 02/26/13 Colonoscopy /incomplete ba enema ordered CONIZATION CERVIX W/WO DANDC RPR ELTRD EXC LEEP-Cervix LAPS ABD PRTMANDOMENTUM DX W/WO SPEC BR/WA SPX Laparoscopy PAST SURGICAL HISTORY OF Hysteroscopy DANDC PAST SURGICAL HISTORY OF Uterine Ablation TONSILLECTOMY PRIMARY/SECONDARY Tonsillectomy TUBAL LIGATION, 2004 VAGINAL HYSTERECTOMY UTERUS 250 GM/< 12/2013 Family History FAMILY HISTORY Problem Relation Age of Onset Cancer Mother 78 Cancer Father Diabetes Maternal Grandmother Cancer Maternal Grandfather Cancer Maternal Aunt Patient Allergies ALLERGIES Allergen Reactions Doxycycline Flagyl [Metronidazo* GI Upset Meloxicam Intolerance Thinks that this may have caused heart palpitations Paxil [Paroxetine H* Intolerance CAUSES PATIENT TO BE TIRED ALL THE TIME Ultram [Tramadol Hc* Mental Status Change Wellbutrin [Bupropi* Current Medications (more content not included)... [facility] 12-05-2022 History of Presen t illness Narrative Chief Complaint Patient presents with: ED Follow-up HPI Belen Jasmine is a 47 year old female who presents here today for an ER follow up. Pt here today for a [facility] ER follow up from 11/30/22 due to chest pain. She states she went to ER, was evaluated, given IV, and discharged home. She said they didn't do anything for me just told me to quit smoking . She has not felt good for 2 months, been sick with cold and sinus issues. She has a lot of chest pressure and pain with coughing. She states she has been taking Augmentin from 11/18/22 for bronchitis but it caused GI upset so she has had to stop taking it off and on. She states she had the flu in the past. She states she can not take Prednisone it makes her shake inside and out . She says her throat hurts, ears and head hurt, wheezing and SOB. She is not taking anything for the cough or the chest pain but ibuprofen. She is using Phenergan and not able to keep that down. C/o pain with urination that started yesterday. Pt had hysterectomy. Has had issues in the past with moderate amount of blood in the urine but states she has not had that looked into further. [facility] ED visit notes: HPI History of Present Illness Chief Complaint: Chest Pain Narrative Narrative: 47-year-old female past medical history of being a smoker, presents with chest pressure that she is had for the last 2 to 3 days. She states that she keeps getting upper respiratory infections and has had this bug at least 4 times over the last 2 months. She saw a provider who started her on Augmentin and prednisone. She states that the Augmentin gave her diarrhea and nausea so she had to half the dosing each time. Additionally, she states that the prednisone made her very shaky and scared. She has had constant chest pressure for the last 2 to 3 days. She denies any exacerbating or alleviating factors. No leg swelling, no fevers or chills. She has an occasional cough and states that she has been using the inhaler that she was given when I need it . [facility] Narrative Medical decision making narrative: Nursing protocol chest pain work-up was pursued. EKG was obtained and interpreted by myself which demonstrates sinus tachycardia at 102 bpm without ectopy or acute ST changes, no STEMI. I reviewed her CBC which shows a normal white count of 8.9, hemoglobin slightly hemoconcentrated at 16.1, normal platelet count of 218. BMP shows normal electrolytes except chloride of 109, potassium is normal at 4.1, BUN low at 5 with creatinine 0.60. Glucose appropriately elevated at 110 with an anion gap normal at 9. Troponin which is 13, and this is greater than a 6-hour troponin as she has had chest pressure for the last 2 to 3 days. I reviewed her chest x-ray which shows no evidence of pneumonia or pneumothorax. At this point in time, I feel she can be discharged safely home with follow-up. I have low concern for pulmonary embolism as she has a normal heart rate currently, and her pulse ox is 97% on room air and she denies any pleuritic chest pain, or leg swelling. She was told to quit smoking, and to use her inhaler every 4-6 hours. She will continue her [id number] medications. Return instructions to the emergency department were reviewed. Disposition is discharged home in stable condition. IMPRESSION: No radiographic evidence of acute cardiopulmonary disease. Electronically Signed: Severino Cline MD at 19:36 EST Past medical history, appointments, medications, allergies reviewed. Previous Medical History PAST MEDICAL HISTORY Diagnosis Date Abnormal Pap smear of cervix C. difficile enteritis 05/23/2018 Diverticulitis Dysmenorrhea Irritable bowel syndrome with constipation 02/08/2013 Previous Surgical History PAST SURGICAL HISTORY Procedure Laterality Date COLONOSCOPY FLX DX W/COLLJ SPEC WHEN PFRMD 02/26/13 Colonoscopy /incomplete ba enema ordered CONIZATION CERVIX W/WO D&C RPR ELTRD EXC LEEP-Cervix LAPS ABD PRTM&OMENTUM DX W/WO SPEC BR/WA SPX Laparoscopy PAST SURGICAL HISTORY OF Hysteroscopy D&C PAST SURGICAL HISTORY OF Uterine Ablation TONSILLECTOMY PRIMARY/SECONDARY <AGE 12 Tonsillectomy TUBAL LIGATION, 2004 VAGINAL HYSTERECTOMY UTERUS 250 GM/< 12/2013 Family History FAMILY HISTORY Problem Relation Age of Onset Cancer Mother 78 Cancer Father Diabetes Maternal Grandmother Cancer Maternal Grandfather Cancer Maternal Aunt Patient Allergies ALLERGIES Allergen Reactions Doxycycline Flagyl [Metronidazo* GI Upset Meloxicam Intolerance Thinks that this may have caused heart palpitations Paxil [Paroxetine H* Intolerance CAUSES PATIENT TO BE TIRED ALL THE TIME Ultram [Tramadol Hc* Mental Status Change Wellbutrin [Bupropi* Current Medications Current Outpatient Medications on File Prior to Visit Medication Sig albuterol HFA (PROVENTIL HFA, VENTOLIN HFA) 90 mcg/actuation inhaler Inhale 2 Puffs as instructed every 4 hours as needed for wheezing/shortness of breath. cyclobenzaprine (FLEXERIL) 10 mg tablet TAKE 1 TABLET BY MOUTH THREE TIMES DAILY NEEDED FOR MUSCLE SPASMS OT NEEDED FOR PAIN pantoprazole DR (PROTONIX) 40 mg tablet Take 1 tablet by mouth daily before breakfast. Take as needed for GI upset traZODone (DESYREL) 50 mg tablet Take 1 tablet by mouth daily at bedtime. hydrOXYzine HCl (ATARAX) 50 mg tablet Take 1-2 tablets by mouth every 6 hours as needed for anxiety. promethazine (PHENERGAN) 25 mg tablet Take 1 tablet by mouth every 6 hours as needed. lidocaine 4 % gel 1 application of small amount to affected area up to 7 times a day as needed for pain control. lidocaine (XYLOCAINE) 2 % jelly Apply 1 application to affected area as needed. lidocaine (LMX) 4 % cream Apply to affected area as needed. 1 application of small amount to affected area up to 7 times a day as needed for pain control. loratadine (CLARITIN) 10 mg tablet Take 1 tablet by mouth once daily. fluticasone (FLONASE) 50 mcg/actuation nasal spray Use 2 Sprays in each nostril once daily. Rinse mouth after use. albuterol HFA (PROAIR HFA) 90 mcg/actuation inhaler Inhale 2 Puffs as instructed every 4 hours as needed for wheezing/shortness of breath. diphenhydrAMINE (BENADRYL) 12.5 mg/5 mL elixir Take 5 mL by mouth four times daily as needed (throat/tongue pain). loperamide HCl (IMODIUM ORAL) Take by mouth as needed. IBUPROFEN ORAL Take by mouth as needed. No current facility-administered medications on file prior to visit. Social History Social History Tobacco Use Smoking status: Every Day Packs/day: 1.00 Years: 20.00 Pack years: 20.00 Types: Cigarettes Smokeless tobacco: Never Substance Use Topics Alcohol use: No Drug use: No EXAM: BP 122/80 Pulse 90 Temp 37.1 C (98.8 F) (Tympanic) Resp 16 Wt 57.4 kg (126 lb 9.6 oz) LMP 12/26/2013 BMI 21.07 kg/m General Appearance: Well appearing, alert, in no acute distress, well-hydrated, well nourished.. Ears: External ears normal, canals clear. Neck: Supple, no adenopathy; thyroid symmetric, normal size.. Lungs: Lungs clear to auscultation. No wheezing, rhonchi, rales.. Heart: RRR without murmur, gallop, or rubs. No ectopy. Chest: no pain on palpation to the mid sternum. Health Maintenance List HEPATITIS B(1 of 3 - 3-dose series) Never done COVID-19 VACCINE(1) Never done PNEUMOCOCCAL(1 - PCV) Never done HEPATITIS C SCREENING Never done MAMMOGRAM Never done PAP TESTING due on 04/25/2018 HPV TESTING due on 04/25/2018 COLORECTAL CANCER SCREENING due on 2018 INFLUENZA(1) due on 07/21/2022 DEPRESSION ASSESSMENT Never done DIABETES SCREEN due on 05/29/2024 DTAP,TDAP,TD(2 - Td or Tdap) due on 07/14/2024 LIPID SCREEN due on 05/29/2026 HIV SCREENING Completed Data reviewed B/O UA POC ASSESSMENT/PLAN: 1. Pain with urination - ICD9: 788.1, ICD10: R30.9 (primary diagnosis) acute - UA positive for hematuria - Send urine for culture - UA DIP, URINE (POC) - URINE CULTURE 2. Gross hematuria - ICD9: 599.71, ICD10: R31.0 - URINE CULTURE 3. Acute non-recurrent sinusitis, unspecified location - ICD9: 461.9, ICD10: J01.90 - LEVOFLOXACIN 500 MG TABLET 4. Nausea - ICD9: 787.02, ICD10: R11.0 - ONDANSETRON 4 MG DISINTEGRATING TABLET Follow up prn I agree with the Chief Complaint, ROS, and Past Histories independently gathered by the clinical clerical and office support workers and the remaining scribed note accurately describes my personal service to the patient. Medical Decision Making: Problems: Moderate: Acute illness with systemic symptoms Data: Unique test(s) ordered: 1 Risk: Moderate: Drug management Medical Decision Making Level: 4 - Moderate Kasey Joy MD The documentation for this note was completed by Nayely Cross Ma acting as scribe for Kasey Joy MD. December 05, 2022 3:21 PM. Nayely Cross Ma documented in this encounter [facility] 11-30-2022 Note HNO ID: [id number] Author: Joseph Louis APRN.INTERIOR HORTICULTURIST Service: ? Author Type: Nurse Practitioner Type: Progress Notes Filed: 11/30/2022 6:36 PM Note Text: Subjective HPI HPI Belen Jasmine is a 47 year old female who presents today for CC of cough, congestion. This started 2 months ago, but has had trouble breathing for few days. Smoker. Recently put on augmentin,not helped, just gave diarrhea. States I cannot breath . Reporting chest pressure. .Patient presents with: Chest Congestion: cough, headache, bodyaches, vomiting and diarrhea x 2 months PAST MEDICAL HISTORY Diagnosis Date Abnormal Pap smear of cervix C. difficile enteritis 05/23/2018 Diverticulitis Dysmenorrhea Irritable bowel syndrome with constipation 02/08/2013 PAST SURGICAL HISTORY Procedure Laterality Date COLONOSCOPY FLX DX W/COLLJ SPEC WHEN PFRMD 02/26/13 Colonoscopy /incomplete ba enema ordered CONIZATION CERVIX W/WO DANMS RPR ELTRD EXC LEEP-Cervix LAPS ABD PRTMANDOMENTUM DX W/WO SPEC BR/WA SPX Laparoscopy PAST SURGICAL HISTORY OF Hysteroscopy LIYAMS PAST SURGICAL HISTORY OF Uterine Ablation TONSILLECTOMY PRIMARY/SECONDARY Tonsillectomy TUBAL LIGATION, 2004 VAGINAL HYSTERECTOMY UTERUS 250 GM/< 12/2013 ALLERGIES Doxycycline, Flagyl [Metronidazole Hcl], Meloxicam, Paxil [Paroxetine Hcl], Ultram [Tramadol Hcl], and Wellbutrin [Bupropion Hcl] MEDICATIONS albuterol HFA (PROVENTIL HFA, VENTOLIN HFA) 90 mcg/actuation inhaler Inhale 2 Puffs as instructed every 4 hours as needed for wheezing/shortness of breath. cyclobenzaprine (FLEXERIL) 10 mg tablet TAKE 1 TABLET BY MOUTH THREE TIMES DAILY NEEDED FOR MUSCLE SPASMS OT NEEDED FOR PAIN pantoprazole DR (PROTONIX) 40 mg tablet Take 1 tablet by mouth daily before breakfast. Take as needed for GI upset traZODone (DESYREL) 50 mg tablet Take 1 tablet by mouth daily at bedtime. hydrOXYzine HCl (ATARAX) 50 mg tablet Take 1-2 tablets by mouth every 6 hours as needed for anxiety. promethazine (PHENERGAN) 25 mg tablet Take 1 tablet by mouth every 6 hours as needed. lidocaine 4 % gel 1 application of small amount to affected area up to 7 times a day as needed for pain control. lidocaine (XYLOCAINE) 2 % jelly Apply 1 application to affected area as needed. lidocaine (LMX) 4 % cream Apply to affected area as needed. 1 application of small amount to affected area up to 7 times a day as needed for pain control. loratadine (CLARITIN) 10 mg tablet Take 1 tablet by mouth once daily. fluticasone (FLONASE) 50 mcg/actuation nasal spray Use 2 Sprays in each nostril once daily. Rinse mouth after use. albuterol HFA (PROAIR HFA) 90 mcg/actuation inhaler Inhale 2 Puffs as instructed every 4 hours as needed for wheezing/shortness of breath. diphenhydrAMINE (BENADRYL) 12.5 mg/5 mL elixir Take 5 mL by mouth four times daily as needed (throat/tongue pain). loperamide HCl (IMODIUM ORAL) Take by mouth as needed. IBUPROFEN ORAL Take by mouth as needed. FAMILY HISTORY Problem Relation Age of Onset Cancer Mother 78 Cancer Father Diabetes Maternal Grandmother Cancer Maternal Grandfather Cancer Maternal Aunt Social History Tobacco Use Smoking status: Every Day Packs/day: 1.00 Years: 20.00 Pack years: 20.00 Types: Cigarettes Smokeless tobacco: Never Substance Use Topics Alcohol use: No Drug use: No ROS Objective Blood pressure 128/76, pulse 104, temperature 36.4 ?C (97.6 ?F), resp. rate 18, weight 59.9 kg (132 lb), last menstrual period 12/26/2013, SpO2 97 %. Physical Exam Constitutional: General: She is not in acute distress. Appearance: She is not toxic-appearing or diaphoretic. HENT: Head: Normocephalic and atraumatic. Cardiovascular: Rate and Rhythm: Normal rate and regular rhythm. Heart sounds: Normal heart sounds, S1 normal and S2 normal. Pulmonary: Effort: Accessory muscle usage and respiratory distress (persistent coughing.) present. Breath sounds: Examination of the right-lower field reveals decreased breath sounds. Examination of the left-lower field reveals decreased breath sounds. Decreased breath sounds present. Neurological: Mental Status: She is alert and oriented to person, place, and time. Gait: Gait is intact. ASSESSMENT/PLAN: 1. Chest pressure - ICD9: 786.59, ICD10: R07.89 I will refer to TEQUILA, martha montez. Joseph Louis APRN.INTERIOR HORTICULTURIST [facility] 11-30-2022 History of Presen t illness Narrative Subjective HPI HPI Belen Jasmine is a 47 year old female who presents today for CC of cough, congestion. This started 2 months ago, but has had trouble breathing for few days. Smoker. Recently put on augmentin,not helped, just gave diarrhea. States I cannot breath . Reporting chest pressure. .Patient presents with: Chest Congestion: cough, headache, bodyaches, vomiting and diarrhea x 2 months PAST MEDICAL HISTORY Diagnosis Date Abnormal Pap smear of cervix C. difficile enteritis 05/23/2018 Diverticulitis Dysmenorrhea Irritable bowel syndrome with constipation 02/08/2013 PAST SURGICAL HISTORY Procedure Laterality Date COLONOSCOPY FLX DX W/COLLJ SPEC WHEN PFRMD 02/26/13 Colonoscopy /incomplete ba enema ordered CONIZATION CERVIX W/WO D&C RPR ELTRD EXC LEEP-Cervix LAPS ABD PRTM&OMENTUM DX W/WO SPEC BR/WA SPX Laparoscopy PAST SURGICAL HISTORY OF Hysteroscopy D&C PAST SURGICAL HISTORY OF Uterine Ablation TONSILLECTOMY PRIMARY/SECONDARY <AGE 10 Tonsillectomy TUBAL LIGATION, 2005 VAGINAL HYSTERECTOMY UTERUS 250 GM/< 12/2013 ALLERGIES Doxycycline, Flagyl [Metronidazole Hcl], Meloxicam, Paxil [Paroxetine Hcl], Ultram [Tramadol Hcl], and Wellbutrin [Bupropion Hcl] MEDICATIONS albuterol HFA (PROVENTIL HFA, VENTOLIN HFA) 90 mcg/actuation inhaler Inhale 2 Puffs as instructed every 4 hours as needed for wheezing/shortness of breath. cyclobenzaprine (FLEXERIL) 10 mg tablet TAKE 1 TABLET BY MOUTH THREE TIMES DAILY NEEDED FOR MUSCLE SPASMS OT NEEDED FOR PAIN pantoprazole DR (PROTONIX) 40 mg tablet Take 1 tablet by mouth daily before breakfast. Take as needed for GI upset traZODone (DESYREL) 50 mg tablet Take 1 tablet by mouth daily at bedtime. hydrOXYzine HCl (ATARAX) 50 mg tablet Take 1-2 tablets by mouth every 6 hours as needed for anxiety. promethazine (PHENERGAN) 25 mg tablet Take 1 tablet by mouth every 6 hours as needed. lidocaine 4 % gel 1 application of small amount to affected area up to 7 times a day as needed for pain control. lidocaine (XYLOCAINE) 2 % jelly Apply 1 application to affected area as needed. lidocaine (LMX) 4 % cream Apply to affected area as needed. 1 application of small amount to affected area up to 7 times a day as needed for pain control. loratadine (CLARITIN) 10 mg tablet Take 1 tablet by mouth once daily. fluticasone (FLONASE) 50 mcg/actuation nasal spray Use 2 Sprays in each nostril once daily. Rinse mouth after use. albuterol HFA (PROAIR HFA) 90 mcg/actuation inhaler Inhale 2 Puffs as instructed every 4 hours as needed for wheezing/shortness of breath. diphenhydrAMINE (BENADRYL) 12.5 mg/5 mL elixir Take 5 mL by mouth four times daily as needed (throat/tongue pain). loperamide HCl (IMODIUM ORAL) Take by mouth as needed. IBUPROFEN ORAL Take by mouth as needed. FAMILY HISTORY Problem Relation Age of Onset Cancer Mother 78 Cancer Father Diabetes Maternal Grandmother Cancer Maternal Grandfather Cancer Maternal Aunt Social History Tobacco Use Smoking status: Every Day Packs/day: 1.00 Years: 20.00 Pack years: 20.00 Types: Cigarettes Smokeless tobacco: Never Substance Use Topics Alcohol use: No Drug use: No ROS Objective Blood pressure 128/76, pulse 104, temperature 36.4 C (97.6 F), resp. rate 18, weight 59.9 kg (132 lb), last menstrual period 12/26/2013, SpO2 97 %. Physical Exam Constitutional: General: She is not in acute distress. Appearance: She is not toxic-appearing or diaphoretic. HENT: Head: Normocephalic and atraumatic. Cardiovascular: Rate and Rhythm: Normal rate and regular rhythm. Heart sounds: Normal heart sounds, S1 normal and S2 normal. Pulmonary: Effort: Accessory muscle usage and respiratory distress (persistent coughing.) present. Breath sounds: Examination of the right-lower field reveals decreased breath sounds. Examination of the left-lower field reveals decreased breath sounds. Decreased breath sounds present. Neurological: Mental Status: She is alert and oriented to person, place, and time. Gait: Gait is intact. ASSESSMENT/PLAN: 1. Chest pressure - ICD9: 786.59, ICD10: R07.89 I will refer to ER, martha montez. Joseph Louis APRN.INTERIOR HORTICULTURIST documented in this encounter [facility] 11-18-2022 Note HNO ID: [id number] Author: Celine Ku APRN.HENRY Service: ? Author Type: Nurse Practitioner Type: Progress Notes Filed: 11/18/2022 1:32 PM Note Text: Subjective Cough Associated symptoms include chest pain (with cough), headaches, myalgias, shortness of breath and wheezing (reported at home). Pertinent negatives include no chills. Belen Jasmine is a 47 year old female who presents with 2 weeks of sinus congestion, cough, chest congestion, fatigue, body aches, headaches. No fever. She had the flu 2 weeks ago and these symptoms have persisted. She has taken Dayquil, Nyquil, and tessalon perles at home. Hears wheezing when she lays flat. Review of Systems Constitutional: Positive for malaise/fatigue. Negative for chills and fever. HENT: Positive for congestion and sinus pain. Respiratory: Positive for cough, shortness of breath and wheezing (reported at home). Cardiovascular: Positive for chest pain (with cough). Gastrointestinal: Positive for nausea. Musculoskeletal: Positive for myalgias. Neurological: Positive for headaches. BP 132/84 Pulse 110 Temp 36.8 ?C (98.2 ?F) Resp 20 Wt 59.7 kg (131 lb 9.6 oz) LMP 12/26/2013 SpO2 98% BMI 21.90 kg/m? PAST MEDICAL HISTORY Diagnosis Date Abnormal Pap smear of cervix C. difficile enteritis 05/23/2018 Diverticulitis Dysmenorrhea Irritable bowel syndrome with constipation 02/08/2013 PAST SURGICAL HISTORY Procedure Laterality Date COLONOSCOPY FLX DX W/COLLJ SPEC WHEN PFRMD 02/26/13 Colonoscopy /incomplete ba enema ordered CONIZATION CERVIX W/WO DANDC RPR ELTRD EXC LEEP-Cervix LAPS ABD PRTMANDOMENTUM DX W/WO SPEC BR/WA SPX Laparoscopy PAST SURGICAL HISTORY OF Hysteroscopy LIYAMS PAST SURGICAL HISTORY OF Uterine Ablation TONSILLECTOMY PRIMARY/SECONDARY Tonsillectomy TUBAL LIGATION, 2004 VAGINAL HYSTERECTOMY UTERUS 250 GM/< 12/2013 ALLERGIES Doxycycline, Flagyl [Metronidazole Hcl], Meloxicam, Paxil [Paroxetine Hcl], Ultram [Tramadol Hcl], and Wellbutrin [Bupropion Hcl] MEDICATIONS cyclobenzaprine (FLEXERIL) 10 mg tablet TAKE 1 TABLET BY MOUTH THREE TIMES DAILY NEEDED FOR MUSCLE SPASMS OT NEEDED FOR PAIN pantoprazole DR (PROTONIX) 40 mg tablet Take 1 tablet by mouth daily before breakfast. Take as needed for GI upset traZODone (DESYREL) 50 mg tablet Take 1 tablet by mouth daily at bedtime. hydrOXYzine HCl (ATARAX) 50 mg tablet Take 1-2 tablets by mouth every 6 hours as needed for anxiety. promethazine (PHENERGAN) 25 mg tablet Take 1 tablet by mouth every 6 hours as needed. lidocaine 4 % gel 1 application of small amount to affected area up to 7 times a day as needed for pain control. lidocaine (XYLOCAINE) 2 % jelly Apply 1 application to affected area as needed. lidocaine (LMX) 4 % cream Apply to affected area as needed. 1 application of small amount to affected area up to 7 times a day as needed for pain control. loratadine (CLARITIN) 10 mg tablet Take 1 tablet by mouth once daily. fluticasone (FLONASE) 50 mcg/actuation nasal spray Use 2 Sprays in each nostril once daily. Rinse mouth after use. albuterol HFA (PROAIR HFA) 90 mcg/actuation inhaler Inhale 2 Puffs as instructed every 4 hours as needed for wheezing/shortness of breath. diphenhydrAMINE (BENADRYL) 12.5 mg/5 mL elixir Take 5 mL by mouth four times daily as needed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 Take 1 tablet by mouth once daily. albuterol HFA (PROAIR HFA) 90 mcg/actuation inhaler Inhale 2 Puffs as instructed every 4 hours as needed for wheezing/shortness of breath. diphenhydrAMINE (BENADRYL) 12.5 mg/5 mL elixir Take 5 mL by mouth four times daily as needed (throat/tongue pain). loperamide HCl (IMODIUM ORAL) Take by mouth as needed. IBUPROFEN ORAL Take by mouth as needed. No current facility-administered medications on file prior to visit. Social History Social History Tobacco Use Smoking status: Every Day Packs/day: 1.00 Years: 20.00 Pack years: 20.00 Types: Cigarettes Smokeless tobacco: Never Substance Use Topics Alcohol use: No Drug use: No EXAM: [facility] 12/26/2013 General Appearance: mildly ill appearing. Lungs: Lungs clear to auscultation. No wheezing, rhonchi, rales.. Heart: RRR without murmur, gallop, or rubs. No ectopy. Abdomen: soft, quiet, mild lower abd discomfort with palpation. Health Maintenance List HEPATITIS B(1 of 3 - 3-dose series) Never done COVID-19 VACCINE(1) Never done PNEUMOCOCCAL(1 - PCV) Never done HEPATITIS C SCREENING Never done MAMMOGRAM Never done PAP TESTING due on 04/25/2018 HPV TESTING due on 04/25/2018 COLORECTAL CANCER SCREENING due on 2018 DEPRESSION SCREENING due on 08/17/2019 INFLUENZA(1) due on 07/21/2022 DIABETES SCREEN due on 05/29/2024 DTAP,TDAP,TD(2 - Td or Tdap) due on 07/14/2024 LIPID SCREEN due on 05/29/2026 HIV SCREENING Completed Data reviewed Epic-scanned documents from [facility] ER on 07/04/22 ASSESSMENT/PLAN: 1. Nausea - ICD9: 787.02, ICD10: R11.0 (primary diagnosis) Will get CT to evaluate; may try Phenergan for symptoms Recommended rechecking labs but she declined getting stuck again - CT ABD/PEL W IVCON 2. Situational anxiety - ICD9: 300.09, ICD10: F41.8 - HYDROXYZINE HCL 50 MG TABLET Refill other meds as requested Follow up prn I agree with the Chief Complaint, ROS, and Past Histories independently gathered by the clinical clerical and office support workers and the remaining scribed note accurately describes my personal service to the patient. Medical Decision Making: Problems: Moderate: New problem with uncertain prognosis Data: Unique test(s) ordered: 1 Risk: Moderate: Drug management Medical Decision Making Level: 4 - Moderate Kasey Joy MD The documentation for this note was completed by Nayely Cross Ma acting as scribe for Kasey Joy MD. July 19, 2022 3:58 PM. Nayely Cross Ma documented in this encounter [facility] 07-04-2022 Note HNO ID: [id number] Author: Severino Khalil APRN.INTERIOR HORTICULTURIST Service: ? Author Type: Nurse Practitioner Type: Progress Notes Filed: 07/04/2022 4:04 PM Note Text: Nontoxic-appearing female presents urgent care accompanied by significant other. Chief complaint body aches chills night sweats fever nausea vomiting abdominal pain cough. Duration of symptoms ongoing past 2 to 3 days. Has been using some OTC medications this is helped some. Unable to tolerate oral fluids at this time. Denies any blood in vomit. Rates abdominal pain 8-9 out of 10. We discussed treatment options and therapies that I can provide in urgent care setting. Patient states she does need pain management patient states she wishes to be seen at [facility] for further evaluation care. Patient will be transported to ED by significant other. Patient/significant other verbalized understanding agrees with plan of care. Severino Khalil APRN.INTERIOR HORTICULTURIST [facility] 07-04-2022 History of Presen t illness Narrative Nontoxic-appearing female presents urgent care accompanied by significant other. Chief complaint body aches chills night sweats fever nausea vomiting abdominal pain cough. Duration of symptoms ongoing past 2 to 3 days. Has been using some OTC medications this is helped some. Unable to tolerate oral fluids at this time. Denies any blood in vomit. Rates abdominal pain 8-9 out of 10. We discussed treatment options and therapies that I can provide in urgent care setting. Patient states she does need pain management patient states she wishes to be seen at [facility] for further evaluation care. Patient will be transported to ED by significant other. Patient/significant other verbalized understanding agrees with plan of care. Severino Khalil APRN.HENRY documented in this encounter [facility] 07-04-2022 Miscellaneous Notes Pt notified of PCP's response below. Requesting appt today, but none available with PCP. Requested appt with LISA after 2 or 3 pm due to spouse bringing her. None available. Scheduled with Binta Metcalf CNP. Randee Mercado Ma I am fine with seeing her in the office Kasey Joy MD Spoke to patient. Patient states she would rather see PCP for an office visit which is only $30-$40 compared to a $300 co pay. Advised patient ED has capabilities to test patient right away that PCP isn't able to (ie; CT of abdomen). Patient states she was just seen in the ED a couple weeks ago for the same thing and nothing was done at visit. Patient states her body aches all over & something is wrong with her stomach it's my guts & PCP needs to adjust Protonix prescription & possibly prescribe Zofran for the N/V as patient hasn't been able to keep anything done. Advised again the ED can do stat imaging & patient stated they've already done a CT. Patient refuses to go to ED. Patient states she thinks she is starting to get a yeast infection as well & ED will not do anything for that. Patient feels she is well enough to come in to office for an appointment. Upon review [facility] records indicate patient was seen for weakness in extremities 06/16/22 & completed a CT of brain that resulted normal. No CT of abdomen has been completed or stomach issues have been addressed. Please review & advise. Eden Caldera MA I agree with the advice given; if she is that weak she needs to go to ER, because she most likely needs IV hydration. Kasey Joy MD Patient call in for vomiting since yesterday. Patient states that she is so weak that she can hardly stand. Patient states that she isn't sure she can even get in the car or walk to get to dr. Office. Nurse Triage assessment completed with protocol recommending for disposition of Go to ED now. Care advice reviewed with patient, patient stated understanding. Patient declines ER. Patients that she just wants to see her doctor. Patient advised to contact office or seek evaluation in urgent care or ER if symptoms persist or gets worse. Reason for Disposition [1] Drinking very little AND [2] dehydration suspected (e.g., no urine > 12 hours, very dry mouth, very lightheaded) Answer Assessment - Initial Assessment Questions 1. VOMITING SEVERITY: Patient unable to keep anything down. Patient unable to eating anything 2. ONSET: Yesterday 3. FLUIDS: Unable to keep anything down 4. ABDOMINAL PAIN: A little bit, from vomiting. 5. DIARRHEA: Yes; Twice 6. CONTACTS: Denies 7. CAUSE: Ran out of stomach medications 8. HYDRATION STATUS: Mouth dry, weak, not walking far.; few minutes ago 9. OTHER SYMPTOMS: Headache, body ache Protocols used: [id number] documented in this encounter [facility] 06-27-2022 Miscellaneous Notes The following approved medication requests have been transmitted electronically. Pending Prescriptions Disp Refills TRAZODONE 50 MG TABLET 30 tablet 3 Sig: Take 1 tablet by mouth daily at bedtime. JOE: Yes CYCLOBENZAPRINE 10 MG TABLET 30 tablet 3 Sig: TAKE 1 TABLET BY MOUTH THREE TIMES DAILY NEEDED FOR MUSCLE SPASMS OT NEEDED FOR PAIN JOE: Yes Joshua Azar APRN.HENRY Patient phones requesting refills as follows: Pending Prescriptions Disp Refills TRAZODONE 50 MG TABLET 30 tablet 3 Sig: Take 1 tablet by mouth daily at bedtime. JOE: Yes CYCLOBENZAPRINE 10 MG TABLET 30 tablet 3 Sig: TAKE 1 TABLET BY MOUTH THREE TIMES DAILY NEEDED FOR MUSCLE SPASMS OT NEEDED FOR PAIN JOE: Yes ELIANA-03/01/22 Labs-05/29/21 NOV-none Please review and advise. Yessenia Valdez LPN documented in this encounter [facility] 06-17-2022 Note HNO ID: [id number] Author: Randee Mercado Ma Service: ? Author Type: ? Type: Progress Notes Filed: 06/24/2022 8:20 AM Note Text: [facility] ED HANDP Scan on 06/16/2022 ?5:15 PM by External Provider: Consultation - Emergency Medicine [facility] 06-16-2022 Note HNO ID: [id number] Author: Nayely Cross Ma Service: ? Author Type: ? Type: Progress Notes Filed: 06/24/2022 8:20 AM Note Text: Scan on 06/16/2022 ?1:24 PM by External Provider: CT Scan CT Brain Nayely Cross Ma [facility] 05-18-2022 Note Patient Outreach (IN [facility]) ESHABELEN L ([id number]) 1975 F Date Time Provider Department 05/18/22 KASEY JOY During your visit today, we recorded the following information about you: Allergies As of Date: 05/18/2022 Noted Allergy Reaction DOXYCYCLINE 01/19/2006 FLAGYL (METRONIDAZOLE HCL) 09/19/2012 8 - GI Upset MELOXICAM 01/31/2018 5 - Intolerance Comments: Thinks that this may have caused heart palpitations PAXIL (PAROXETINE HCL) 01/13/2006 5 - Intolerance Comments: CAUSES PATIENT TO BE TIRED ALL THE TIME ULTRAM (TRAMADOL HCL) 09/19/2012 1 - Mental Status Change WELLBUTRIN (BUPROPION HCL) 08/14/2007 Date Reviewed: 03/01/2022 Reviewed by: Joshua Azar APRN.INTERIOR HORTICULTURIST - Fully Assessed Visit Diagnosis:Encounter for screening mammogram for breast cancer [Z12.31] Order(s):[facility] SCREENING [[id number]] Order #: [id number] FUTURE Prescriptions as of 05/23/2022 - cyclobenzaprine (FLEXERIL) 10 mg tablet Take 1 tablet by mouth three times daily as needed for muscle spasm or pain. - hydrOXYzine HCl (ATARAX) 50 mg tablet Take 1 tablet by mouth every 6 hours as needed for anxiety. - traZODone (DESYREL) 50 mg tablet Take 1 tablet by mouth daily at bedtime. - pantoprazole DR (PROTONIX) 40 mg tablet Take 1 tablet by mouth daily before breakfast. Take as needed for GI upset - gabapentin (NEURONTIN) 100 mg capsule Take 1 capsule by mouth three times daily as needed for up to 90 days. - fluticasone (FLONASE) 50 mcg/actuation nasal spray Use 2 Sprays in each nostril once daily. Rinse mouth after use. - loratadine (CLARITIN) 10 mg tablet Take 1 tablet by mouth once daily. - albuterol HFA (PROAIR HFA) 90 mcg/actuation inhaler Inhale 2 Puffs as instructed every 4 hours as needed for wheezing/shortness of breath. - diphenhydrAMINE (BENADRYL) 12.5 mg/5 mL elixir Take 5 mL by mouth four times daily as needed (throat/tongue pain). - loperamide HCl (IMODIUM ORAL) Take by mouth as needed. - IBUPROFEN ORAL Take by mouth as needed. Problem List As Of Date 05/18/2022 Noted Resolved DYSMENORRHEA [N94.6] 12/24/2007 GASTRITIS NEC W/O HEMORRH [K29.60] 12/24/2007 ADJUSTMENT DISORDER WITH DEPRESSED MOOD [F43.21]12/12/2008 Microscopic hematuria [R31.29] 03/12/2009 08/16/2017 Tobacco abuse [Z72.0] 09/19/2012 Kidney stone [N20.0] 11/27/2012 Renal cyst [N28.1] 11/27/2012 Generalized abdominal pain [R10.84] 11/27/2012 08/16/2017 Urinary frequency [R35.0] 11/27/2012 Irritable bowel syndrome with constipation [K58*02/08/2013 Dysplasia of cervix, low grade (DIVYA 1) [N87.0] 06/26/2013 Chronic pelvic pain in female [R10.2, G89.29] 11/21/2013 Melena [K92.1] 08/07/2017 C. difficile enteritis [A04.72] 05/23/2018 Encounter Status:Closed by LELA ZARAGOZA on 05/23/22 [facility] 05-09-2022 Miscellaneous Notes The following approved medication requests have been transmitted electronically. Pending Prescriptions Disp Refills CYCLOBENZAPRINE 10 MG TABLET 30 tablet 0 Sig: Take 1 tablet by mouth three times daily as needed for muscle spasm or pain. JOE: Yes Joshua Azar APRN.CNP ELIANA: 03/01/2022 Last refill: 04/11/2022 QTY: 30 Refills: 0 Patient's request for medication is as follows: Pending Prescriptions Disp Refills CYCLOBENZAPRINE 10 MG TABLET 30 tablet 0 Sig: Take 1 tablet by mouth three times daily as needed for muscle spasm or pain. JOE: Yes Please approve the above prescription(s) to electronically send to pharmacy. Tony Avila Ma documented in this encounter [facility] 04-11-2022 Miscellaneous Notes The following approved medication requests have been transmitted electronically. Pending Prescriptions Disp Refills CYCLOBENZAPRINE 10 MG TABLET 30 tablet 0 Sig: Take 1 tablet by mouth three times daily as needed for muscle spasm or pain. JOE: Yes Joshua Azar APRN.INTERIOR HORTICULTURIST Patient phones requesting refills as follows: Pending Prescriptions Disp Refills CYCLOBENZAPRINE 10 MG TABLET 30 tablet 0 Sig: Take 1 tablet by mouth three times daily as needed for muscle spasm or pain. JOE: Yes LEIANA-03/01/22 Labs-05/29/21 NOV-none med filled 03/01/22 Please review and advise. Yessenia Valdez LPN documented in this encounter [facility] 03-01-2022 History of Presen t illness Narrative Chief Complaint Patient presents with: Refill Request HPI Belen Jasmine is a 46 year old female who presents here today for Chronic Medical Conditions.. Patient here to office for medication follow up. They were refill yesterday. GERD: Patient takes: Protonix 40 mg Heartburn is controlled: Yes. Bloody or black stools: No. Bowel changes: No. Situational Anxiety: She is on vistaril as needed. States that she has been previously on other anti-depressants but has not done well on them. Requesting to trial increasing dose of Atarax. Patient is mentioning that she has not be sleeping well. She has been only running on 4 hours of sleep. Mentions that snores a lot. Did some moving previously. [place] like she moved her back. She states that she has some more moving to do and is worried about re-injuring her back. She would like to trial some flexeril. Past medical history, appointments, medications, allergies reviewed. Previous Medical History PAST MEDICAL HISTORY Diagnosis Date Abnormal Pap smear of cervix C. difficile enteritis 05/23/2018 Diverticulitis Dysmenorrhea Irritable bowel syndrome with constipation 02/08/2013 Previous Surgical History PAST SURGICAL HISTORY Procedure Laterality Date COLONOSCOPY FLX DX W/COLLJ SPEC WHEN PFRMD 02/26/13 Colonoscopy /incomplete ba enema ordered CONIZATION CERVIX W/WO D&C RPR ELTRD EXC LEEP-Cervix LAPS ABD PRTM&OMENTUM DX W/WO SPEC BR/WA SPX Laparoscopy PAST SURGICAL HISTORY OF Hysteroscopy D&C PAST SURGICAL HISTORY OF Uterine Ablation TONSILLECTOMY PRIMARY/SECONDARY <AGE 10 Tonsillectomy TUBAL LIGATION, 2004 VAGINAL HYSTERECTOMY UTERUS 250 GM/< 12/2013 Family History FAMILY HISTORY Problem Relation Age of Onset Cancer Mother 78 Cancer Father Diabetes Maternal Grandmother Cancer Maternal Grandfather Cancer Maternal Aunt Patient Allergies ALLERGIES Allergen Reactions Doxycycline Flagyl [Metronidazo* GI Upset Meloxicam Intolerance Thinks that this may have caused heart palpitations Paxil [Paroxetine H* Intolerance CAUSES PATIENT TO BE TIRED ALL THE TIME Ultram [Tramadol Hc* Mental Status Change Wellbutrin [Bupropi* Current Medications Current Outpatient Medications on File Prior to Visit Medication Sig hydrOXYzine HCl (ATARAX) 25 mg tablet Take 1 tablet by mouth every 6 hours as needed for anxiety. pantoprazole DR (PROTONIX) 40 mg tablet Take 1 tablet by mouth daily before breakfast. Take as needed for GI upset gabapentin (NEURONTIN) 100 mg capsule Take 1 capsule by mouth three times daily as needed for up to 90 days. fluticasone (FLONASE) 50 mcg/actuation nasal spray Use 2 Sprays in each nostril once daily. Rinse mouth after use. loratadine (CLARITIN) 10 mg tablet Take 1 tablet by mouth once daily. albuterol HFA (PROAIR HFA) 90 mcg/actuation inhaler Inhale 2 Puffs as instructed every 4 hours as needed for wheezing/shortness of breath. nicotine (NICODERM) 21 mg/24 hr Apply 1 Patch as directed every 24 hours. (Patient not taking: Reported on 12/17/2021 ) diphenhydrAMINE (BENADRYL) 12.5 mg/5 mL elixir Take 5 mL by mouth four times daily as needed (throat/tongue pain). loperamide HCl (IMODIUM ORAL) Take by mouth as needed. IBUPROFEN ORAL Take by mouth as needed. No current facility-administered medications on file prior to visit. Social History Social History Tobacco Use Smoking status: Current Every Day Smoker Packs/day: 1.00 Years: 20.00 Pack years: 20.00 Types: Cigarettes Smokeless tobacco: Never Used Substance Use Topics Alcohol use: No Drug use: No REVIEW OF SYSTEMS: as above Reviewed relevant PMHx, PSHx, Social Hx, current medications and allergies. EXAM: BP 124/82 Pulse 76 Temp 36.7 C (98 F) (Left Tympanic) Resp 16 Wt 57.6 kg (127 lb) LMP 12/26/2013 BMI 21.13 kg/m General Appearance: Well appearing, alert, in no acute distress, well-hydrated, well nourished.. Lungs: Lungs clear to auscultation. No wheezing, rhonchi, rales.. Heart: RRR without murmur, gallop, or rubs. No ectopy. Health Maintenance List COVID-19 VACCINE(1) Never done ONE PNEUMOVAX PRIOR TO AGE 65 Never done MAMMOGRAM Never done PAP TESTING due on 04/25/2018 HPV TESTING due on 04/25/2018 COLORECTAL CANCER SCREENING due on 2018 DEPRESSION SCREENING due on 08/17/2019 HEPATITIS C SCREENING due on 05/28/2022 INFLUENZA(Season Ended) due on 07/21/2022 DIABETES SCREEN due on 05/29/2024 DTAP,TDAP,TD(2 - Td or Tdap) due on 07/14/2024 LIPID SCREEN due on 05/29/2026 HIV SCREENING Completed MENINGOCOCCAL CONJUGATE Aged Out Data reviewed Component Latest Ref Rng & Units 05/29/2021 WBC 3.70 - 11.00 k/uL 12.61 (H) RBC 3.90 - 5.20 m/uL 4.67 Hemoglobin 11.5 - 15.5 g/dL 16.4 (H) Hematocrit 36.0 - 46.0 % 48.6 (H) MCV 80.0 - 100.0 fL 104.1 (H) MCH 26.0 - 34.0 pG 35.1 (H) MCHC 30.5 - 36.0 g/dL 33.7 RDW-CV 11.5 - 15.0 % 13.2 Platelet Count 150 - 400 k/uL 169 MPV 9.0 - 12.7 fL 12.8 (H) Neut% % 70.5 Abs Neut (ANC) 1.45 - 7.50 k/uL 8.89 (H) Lymph% % 20.5 Abs Lymph 1.00 - 4.00 k/uL 2.58 Johnson% % 7.6 Abs Johnson <0.87 k/uL 0.96 (H) Eosin% % 0.7 Abs Eosin <0.46 k/uL 0.09 Baso% % 0.7 Abs Baso <0.11 k/uL 0.09 Nucleated Reds 0 /100 WBC 0.0 Absolute nRBC <0.01 k/uL <0.01 Diff Type Auto Diff Protein, Total 6.3 - 8.0 g/dL 7.1 Albumin 3.9 - 4.9 g/dL 4.4 Calcium 8.5 - 10.2 mg/dL 9.8 Bilirubin, Total 0.2 - 1.3 mg/dL 0.4 Alkaline Phosphatase 34 - 123 U/L 53 AST 13 - 35 U/L 31 Glucose 74 - 99 mg/dL 80 BUN 7 - 21 mg/dL 8 Creatinine 0.58 - 0.96 mg/dL 0.55 (L) Sodium 136 - 144 mmol/L 136 Potassium 3.7 - 5.1 mmol/L 3.8 Chloride 97 - 105 mmol/L 102 CO2 22 - 30 mmol/L 21 (L) Anion Gap 9 - 18 mmol/L 13 ALT 7 - 38 U/L 31 eGFR- >60 eGFR-All Other Races . >60 Cholesterol, Total <200 mg/dL 235 (H) Triglyceride <150 mg/dL 92 HDL Cholesterol >39 mg/dL 95 LDL Cholesterol <100 mg/dL 122 (H) Non HDL Cholesterol <130 mg/dL 140 (H) Fasting Time hrs 12 VLDL Cholesterol <30 mg/dL 18 TC:HDL Ratio <5.10 2.47 LDL:HDL Ratio <2.54 1.28 ASSESSMENT/PLAN: 1. Situational anxiety - ICD9: 300.09, ICD10: F41.8 (primary diagnosis) - Trial increasing to 50 mg, let office know if too sedating - HYDROXYZINE HCL 50 MG TABLET 2. Gastroesophageal reflux disease with esophagitis without hemorrhage - ICD9: 530.81, 530.10, ICD10: K21.00 - Stable on Protonix 40 mg 3. Chronic insomnia - ICD9: 780.52, ICD10: F51.04 - Likely multiple reasons with ongoing anxiety and significant other that snores. Trial Trazodone 50 mg, call office if too sedating. - TRAZODONE 50 MG TABLET Joshua Azar APRN.CNP RTO in 3 months, sooner if needed. This note was partly generated using [employer] voice recognition dictation and may contain some misspelled or inaccurate words missed on review. documented in this encounter [facility] 02-28-2022 Miscellaneous Notes OK to refill as ordered Kasey Joy MD Pharmacy verified in [facility] Patient has been identified by name and date of : Yes Patient aware RX will be sent to pharmacy. No need to notify patient. Patient phones for refill(s): Pending Prescriptions Disp Refills HYDROXYZINE HCL 25 MG TABLET 30 tablet 5 Sig: Take 1 tablet by mouth every 6 hours as needed for anxiety. JOE: No PANTOPRAZOLE 40 MG TABLET,DELAYED RELEASE 30 tablet 5 Sig: Take 1 tablet by mouth daily before breakfast. Take as needed for GI upset JOE: No Date of last office visit : 12/07/2016 Date of next office visit : Visit date not found Last 2 Encounter Wt Readings: Date: Wt: 12/17/2021 59.6 kg (131 lb 6.4 oz) 09/13/2021 55.9 kg (123 lb 3.2 oz) Please advise. Lyubov Cortes Pss documented in this encounter [facility] documented as of this encounter (statuses as of 02/28/2022) [facility] History of Past illness Narrative* Problem Noted Date Resolved Date Generalized abdominal pain 11/27/201208/16 Microscopic hematuria 03/12/2009 08/16/2017 documented as of this encounter (statuses as of 03/01/2022) [facility] History of Past illness Narrative* Problem Noted Date Resolved Date Generalized abdominal pain 11/27/201208/16 Microscopic hematuria 03/12/2009 08/16/2017 documented as of this encounter (statuses as of 04/11/2022) [facility] History of Past illness Narrative* Problem Noted Date Resolved Date Generalized abdominal pain 11/27/201208/16 Microscopic hematuria 03/12/2009 08/16/2017 documented as of this encounter (statuses as of 05/09/2022) [facility] History of Past illness Narrative* Problem Noted Date Resolved Date Generalized abdominal pain 11/27/201208/16 Microscopic hematuria 03/12/2009 08/16/2017 documented as of this encounter (statuses as of 05/23/2022) [facility] History of Past illness Narrative* Problem Noted Date Resolved Date Generalized abdominal pain 11/27/201208/16 Microscopic hematuria 03/12/2009 08/16/2017 documented as of this encounter (statuses as of 06/27/2022) [facility] History of Past illness Narrative* Problem Noted Date Resolved Date Generalized abdominal pain 11/27/201208/16 Microscopic hematuria 03/12/2009 08/16/2017 documented as of this encounter (statuses as of 07/04/2022) [facility] History of Past illness Narrative* Problem Noted Date Resolved Date Generalized abdominal pain 11/27/201208/16 Microscopic hematuria 03/12/2009 08/16/2017 documented as of this encounter (statuses as of 07/19/2022) [facility] History of Past illness Narrative* Problem Noted Date Resolved Date Generalized abdominal pain 11/27/201208/16 Microscopic hematuria 03/12/2009 08/16/2017 documented as of this encounter (statuses as of 07/22/2022) [facility] History of Past illness Narrative* Problem Noted Date Resolved Date Generalized abdominal pain 11/27/201208/16 Microscopic hematuria 03/12/2009 08/16/2017 documented as of this encounter (statuses as of 09/21/2022) [facility] History of Past illness Narrative* Problem Noted Date Resolved Date Generalized abdominal pain 11/27/201208/16 Microscopic hematuria 03/12/2009 08/16/2017 documented as of this encounter (statuses as of 09/21/2022) [facility] History of Past illness Narrative* Problem Noted Date Resolved Date Generalized abdominal pain 11/27/201208/16 Microscopic hematuria 03/12/2009 08/16/2017 documented as of this encounter (statuses as of 09/28/2022) [facility] History of Past illness Narrative* Problem Noted Date Resolved Date Generalized abdominal pain 11/27/201208/16 Microscopic hematuria 03/12/2009 08/16/2017 documented as of this encounter (statuses as of 11/23/2022) [facility] History of Past illness Narrative* Problem Noted Date Resolved Date Generalized abdominal pain 11/27/201208/16 Microscopic hematuria 03/12/2009 08/16/2017 documented as of this encounter (statuses as of 11/25/2022) [facility] History of Past illness Narrative* Problem Noted Date Resolved Date Generalized abdominal pain 11/27/201208/16 Microscopic hematuria 03/12/2009 08/16/2017 documented as of this encounter (statuses as of 12/01/2022) [facility] History of Past illness Narrative* Problem Noted Date Resolved Date Generalized abdominal pain 11/27/201208/16 Microscopic hematuria 03/12/2009 08/16/2017 documented as of this encounter (statuses as of 12/05/2022) [facility] History of Past illness Narrative* Problem Noted Date Resolved Date Generalized abdominal pain 11/27/201208/16 Microscopic hematuria 03/12/2009 08/16/2017 documented as of this encounter (statuses as of 01/03/2023) [facility] History of Past illness Narrative* Problem Noted Date Resolved Date Generalized abdominal pain 11/27/201208/16 Microscopic hematuria 03/12/2009 08/16/2017 documented as of this encounter (statuses as of 01/04/2023) [facility] History of Past illness Narrative* Problem Noted Date Resolved Date Generalized abdominal pain 11/27/201208/16 Microscopic hematuria 03/12/2009 08/16/2017 documented as of this encounter (statuses as of 01/05/2023) [facility]

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
[2023-11-18 08:08] VITALS: BMI 23.6
[2023-11-18] MEDS: Ondansetron 4 MG/2 ML Vial IV (09:00)
--- NOTE | 2023-11-18 09:06 | ED.RN ---
pt instructed multiple times that she is NPO including water. Pt continuing to drink water and having episodes of emesis.
--- NOTE | 2023-11-18 09:23 | CT_ITS ---
STUDY: CT ABDOMEN AND PELVIS WITHOUT CONTRAST REASON FOR EXAM: Female, 48 years old. Abdominal pain. RADIATION DOSAGE (If Supplied By Facility): CTDIvol = ( 6 ) mGy, DLP = ( 291 ) mGycm TECHNIQUE: Transaxial images were obtained from the dome of the diaphragm to the symphysis pubis without oral contrast, and without intravenous contrast. Sagittal and coronal images were reconstructed. Individualized dose optimization techniques were used for this CT. COMPARISON: No relevant prior comparison study available FINDINGS: Evaluation of the abdominal viscera is limited in the absence of intravenous contrast. LOWER THORAX: The visualized lung bases are clear. The visualized portions of the heart and pericardium are within normal limits. GALLBLADDER / BILE DUCTS: There are no calcified gallstones present. The common bile duct is normal in caliber. There are no calcified ductal stones. LIVER: The liver demonstrates an unremarkable unenhanced appearance. SPLEEN: The spleen is normal in size. PANCREAS: There is diffuse peripancreatic fluid and stranding which is consistent with acute pancreatitis. ADRENAL GLANDS: The adrenal glands are within normal limits. KIDNEYS / BLADDER: There are no renal or ureteral stones. There is no hydronephrosis. There are no focal renal lesions identified on this noncontrast exam. The urinary bladder is partially distended and appears grossly unremarkable. STOMACH / BOWEL: Normal visualized stomach. There is no bowel obstruction or inflammation. The appendix is visualized and appears normal. PERITONEUM / RETROPERITONEUM: There is a small amount of peripancreatic fluid. There is no free air or fluid collection. There is no abnormal soft tissue mass identified. There is no abdominal or pelvic lymphadenopathy. VESSELS: The aorta is normal in caliber. The IVC is unremarkable. BONES: There are no destructive osseous lesions. SOFT TISSUES: The visualized soft tissues are within normal limits. CT/Abdomen/Pelvis without Cont IMPRESSION: Diffuse peripancreatic fluid and stranding, consistent with acute pancreatitis. No bowel obstruction or inflammation. Normal appendix. No urinary calculi. No hydronephrosis. Electronically Signed: Jayme Etienne MD at 10:34 EST ,
[2023-11-18] MEDS: Morphine 4 MG/ML Syringe IV ×2 (09:27→12:00)
[2023-11-18] MEDS: 0.9% Normal Saline (1000mL) 1,000 ML 1000 ML IV (09:30)
[2023-11-18] MEDS: Pantoprazole Sodium 40 MG in 0.9% Normal Saline (100mL MB+) 100 ML 330 MG IV ×2 (10:10→18:27)
[2023-11-18 10:54] LABS: Absolute Lymphocyte Count 0.42 X10^3/uL (0.83-4.51); Absolute Neutrophil Count 10.1 X10^3/uL (2.0-7.7); Basophil# 0.05 X10^3/uL; Basophil% 0.4 % (0-1); Hematocrit 48.6 % (37-47); Hemoglobin 16.2 g/dL (12.0-15.0); Lymphocyte # 0.42 X10^3/ul (0.83-4.51); Lymphocyte % 3.7 % (19-41); Mean Corp Hgb Conc 33.3 g/dL (32-36); Mean Corpuscular Hgb 32.5 pg (27.0-32.0); Mean Corpuscular Volume 97.6 fL (81-99); Mean Platelet Vol. 10.5 fl (6.2-12.0); Monocyte# 0.63 X10^3/uL; Monocyte% 5.6 % (0-10); NRBC Flagged by Analyzer 0 % (0-5); Neutrophil # 10.13 X10^3/uL (2.7-7.7); POSITIVE DIFFERENTIAL YES; Platelet Count 278 K/mm3 (150-450); RBC Distribution Width CV 13.6 % (11.6-14.6); RBC Distribution Width SD 49.3 fl (35.1-43.9); Red Blood Count 4.98 M/mm3 (4.2-5.4); White Blood Count 11.3 K/mm3 (4.4-11.0)
[2023-11-18 10:57] LABS: Differential Indicated SCAN CRITERIA MET
[2023-11-18 11:13] LABS: AST(SGOT) 35 U/L (15-37); Alanine Aminotransfer ALT/SGPT 29 U/L (13-56); Albumin, Serum 3.7 g/dL (3.2-5.0); Alkaline Phosphatase 98 U/L (45-117); Anion Gap 9 (5-15); BUN 7 mg/dL (7-18); BUN/Creat Ratio 9.3 RATIO (10-20); Calcium,Total 11.1 mg/dL (8.5-10.1); Chloride 103 mmol/L (98-107); Creatinine, Serum 0.75 mg/dL (0.55-1.02); EST Glomerular Filtration Rate 87 mL/min (>60); Est Glom Filt Rate - Afr Amer 105 mL/min (>60); Estimated Creatinine Clearance 80.75 ml/min; Globulin 3.8 g/dL (2.2-4.2); Glucose 134 mg/dL (74-106); Lipase 1961 U/L (13-75); Potassium 3.1 mmol/L (3.5-5.1); Protein, Total 7.5 g/dL (6.4-8.2); Sodium Level 138 mmol/L (136-145)
[2023-11-18 11:19] LABS: Differential Comment SCANNED
[2023-11-18 11:35] VITALS: BP 145/117; PULSE 94; RESP 16; O2SAT 96
--- NOTE | 2023-11-18 11:40 | PCM.HP.STD ---
HPI - General General Date of Admission: 11/18/23 Date of Service: 11/18/23 Chief Complaint: nausea and vomiting HPI Narrative ARLYN BALBUENA, is a 48 F with a PMh as outlined who presents via the DD on 11/18/2023 with a complaint of nausea and vomiting for 4 days prior to admission. Vomiting was bilious in nature. She had associated abdominal pain which was mainly due to the vomiting. She had had a recent upper respiratory tract illness which was presumed to be viral and had resolved. She has not had pancreatitis in the past before. She denied any fever or chills. Review of systems is otherwise negative. Vitals in the ED were BP of 145/117, OR of 94, RR of 16 and she was saturating at 96% on room air. CBC showed WBC of 11.3 with hemoglobin of 16.2 and platelets of 278. Chemistry shows sodium of 138 with potassium of 3.1 and creatinine of 0.75. Lipase was 1961. CT abdomen and pelvis showed diffuse peripancreatic fluid and stranding consistent with acute pancreatitis, with no evidence of gallstones and common bile duct being normal in caliber. She has been admitted to be managed for acute pancreatitis of unclear etiology. [facility] Medical History (Updated 11/18/23 @ 12:54 by Ting Zacarias) Anxiety COVID GERD (gastroesophageal reflux disease) Hepatitis History of hyperactive airway disease History of ureterolithiasis Home Medications pantoprazole 40 mg tablet,delayed release (Protonix) 40 mg PO DAILY #10 tabs 07/04/22 [Rx Last Taken Unknown] hydroxyzine HCl 50 mg tablet 50 mg PO Q8H 11/18/23 [History Last Taken Unknown] trazodone 50 mg tablet 50 mg PO QHS 11/18/23 [History Last Taken Unknown] Allergy/AdvReac Type Severity Reaction Status Date / Time bupropion HCl AdvReac Other Verified 11/18/23 07:14 [From Wellbutrin] doxycycline AdvReac Other Verified 11/18/23 07:14 tramadol AdvReac Other Verified 11/18/23 07:14 Surgical History H/O: hysterectomy Hx of tonsillectomy Social History Smoking Status: Current every day smoker tobacco type: cigarettes and e-cigarettes ROS Review of Systems ROS Unobtainable: Denies due to encephalopathy Constitutional Constitutional: Reports anorexia, fatigue, malaise and weakness; Denies change in weight, chills or fever(s) Eyes Eyes: Denies change in vision ENT HEENT: Denies dysphagia Cardiovascular Cardiovascular: Denies chest pain, edema or orthopnea Respiratory/Chest Respiratory/Chest: Denies cough, shortness of breath at rest or shortness of breath with exertion Gastrointestinal Gastrointestinal: Reports abdominal pain, nausea and vomiting; Denies diarrhea Genitourinary Genitourinary: Denies dysuria Musculoskeletal Musculoskeletal: Denies back pain, extremity pain or limited range of motion Neurologic Neurologic: Denies confusion, dizziness, focal weakness or headache(s) Psychiatric Psychiatric: Denies anxiety Vital Signs Vital Signs Vital Signs: 11/18/23 07:15 11/18/23 11:35 Temperature 95.3 F L Temperature Source Temporal Pulse Rate 68 94 Respiratory Rate 16 16 Blood Pressure 131/90 H 145/117 H Blood Pressure Mean 103 126 Pulse Ox 96 96 Oxygen Delivery Method Room Air Room Air Weight Weight: 141 lb 12.116 oz Body Mass Index (BMI) 23.6 Physical Exam Const alert and oriented x3 Constitutional Narrative: looks uncomfortable due to pain from pancreatitis General Appearance: cooperative HEENT normocephalic and head/scalp atraumatic Mouth: dry mucous membranes Eyes PERRL and EOMs intact bilaterally Neck no lymphadenopathy and supple Lymph Lymphatic: no lymphadenopathy noted and no lymphedema noted Resp normal respiratory effort, normal air movement and clear to auscultation bilaterally Cardio regular rate, regular rhythm, S1 normal heart sound, S2 normal heart sound and no murmurs GI normal to inspection, nondistended, normoactive bowel sounds GI Narrative: moderate epiastric and left upper quadrant pain, no guarding or rebound tenderness. Extremity normal capillary refill, no clubbing, cyanosis or edema and no calf tenderness General Extremity: no tenderness to palpation of joints or extremities Skin General Skin Exam: no breakdown and turgor normal Neuro CN's II-XII intact bilaterally, no focal motor deficits and no sensory deficits noted Motor Exam: strength 5/5 throughout and general weakness Psych thought process normal and cooperative Mood & Affect: anxious Results Lab / Micro Data 11/18/23 10:30 11/18/23 10:30 Labs: Laboratory Results - last 24 hr 11/18/23 10:30: WBC 11.3 H, RBC 4.98, Hgb 16.2 H, Hct 48.6 H, MCV 97.6, MCH 32.5 H, MCHC 33.3, RDW Std Deviation 49.3 H, RDW Coeff of [place] 13.6, Plt Count 278, MPV 10.5, Immature Gran % (Auto) 0.300, Neut % (Auto) 90.0 H, Lymph % (Auto) 3.7 L, [place] % (Auto) 5.6, Eos % (Auto) 0.0, Baso % (Auto) 0.4, Absolute Neuts (auto) 10.1 H, Absolute Lymphs (auto) 0.42 L, Nucleated RBC % 0, Differential Comment SCANNED, Sodium 138, Potassium 3.1 L, Chloride 103, Carbon Dioxide 26.0, Anion Gap 9, BUN 7, Creatinine 0.75, Estim Creat Clear Calc 80.75, Est GFR (MDRD) Af Amer 105, Est GFR (MDRD) Non-Af 87, BUN/Creatinine Ratio 9.3 L, Glucose 134 H, Calcium 11.1 H, Total Bilirubin 0.90, AST 35, ALT 29, Alkaline Phosphatase 98, Total Protein 7.5, Albumin 3.7, Globulin 3.8, Albumin/Globulin Ratio 1.0, Lipase 1961 H [facility] Radiology Impression Abdomen/Pelvis CT 11/18/23 09:23 IMPRESSION: Diffuse peripancreatic fluid and stranding, consistent with acute pancreatitis. No bowel obstruction or inflammation. Normal appendix. No urinary calculi. No hydronephrosis. Electronically Signed: Jayme Etienne MD at 10:34 EST , Assessment & Plan Assessment/Plan (1) Acute pancreatitis: PLAN: Plan #Acute pancreatitis Admit to [facility]. Etiology of her acute pancreatitis is not very clear. Patient does have a strong history of drinking but she says she quit recently. Patient says she thinks liquids a few weeks ago although her says she quit some months ago. It is unclear if this may be possibly in etiology. She also has a heavy history of smoking. By CT of the abdomen and pelvis without contrast done on admission, there was evidence of diffuse peripancreatic fluid and stranding consistent with acute pancreatitis but there were no gallstones in the common bile duct was normal in caliber. Liver enzymes not elevated. Will check triglyceride level. Hydrate aggressively with IV fluids with normal saline at 150 cc/h. IV morphine as needed for pain Keep n.p.o. for now. #Hypokalemia: Potassium is 3.1. Will replace and trend. #Nicotine dependence: Counseled to quit. Nicotine patch 21 mg daily. #History of chronic insomnia: On trazodone nightly as needed DVT prophylaxis: Lovenox CODE STATUS: DNR CCA no intubation Patient counseled extensively about different types of CODE STATUS including full code, DNR CCA and DNR CCA. Patient elects to be DNRCCA no intubation. This was clarified with patient in light of her young age to be sure this was what she wanted. Patient and her stated that she had always stated she did not want any CPR or intubation, adamant that she wanted to be DNR CCA no intubation. Total [id number] time 17 minutes. Charges/Coding Visit Charges Inpatient E&M: 01383 Init Hosp L3 Procedures Hospitalists Procedures: 67780 Advncd Care Plan 30 Min
[2023-11-18] MEDS: Ondansetron 4 MG/2 ML Vial IM (11:59)
--- OUTSIDE RECORDS SUMMARY | 2023-11-18 12:07 | XMS RPT_ITS | CCD ---
Author Name Unknown Address [address] [place] [address] Organization [facility] Care Team Providers Care Conversion Developer Name Role Phone Kasey Joy MD Primary [...] Unavailable Kasey Joy MD Primary Care Provider Allergies Allergy Classification Reported Allergen(s) Allergy Type Date of Onset Reaction(s) Facility (20 sources) buPROPion; Translations: [BUPROPION HCL] Drug Allergy 08-14-2007 [facility] (20 sources) Doxycycline; Translations: [DOXYCYCLINE] Drug Allergy 01-19-2006 [facility] Work Phone: (20 sources) meloxicam; Translations: [MELOXICAM] Drug Allergy 01-31-[address] [facility] (20 sources) metroNIDAZOLE; Translations: [METRONIDAZOLE HCL] Drug Allergy 09-19-[address] [facility] (20 sources) PARoxetine; Translations: [PAROXETINE HCL] Drug Allergy 01-13-[address] [facility] Work Phone: (20 sources) traMADol; Translations: [TRAMADOL HCL] Drug Allergy 09-19-[address] [facility] Medications Current Medications Medication Drug Class(es) [...] Drug Class(es) Dates Sig (Normalized) Sig (Original) [id number] 200 actuat albuterol 0.09 mg/actuat metered dose [...] 10:21-0400 Body weight 59.42 kg Joshua Azar CLINICAL DOCUMENTATION DEVELOPER.DOMESTIC HOUSEKEEPER Work Phone: [facility] 04-25-2023 10:21-0400 Diastolic blood pressure 88 mm[Hg] Joshua Azar CLINICAL DOCUMENTATION DEVELOPER.DOMESTIC HOUSEKEEPER Work Phone: [facility] 04-25-2023 10:21-0400 Heart rate 117 /min Joshua Azar CLINICAL DOCUMENTATION DEVELOPER.DOMESTIC HOUSEKEEPER Work Phone: [facility] 04-25-2023 10:21-0400 Respiratory rate 16 /min Joshua Azar CLINICAL DOCUMENTATION DEVELOPER.DOMESTIC HOUSEKEEPER Work Phone: [facility] 04-25-2023 10:21-0400 SaO2% (BldA) [Mass fraction] 98 % Joshua Azar CLINICAL DOCUMENTATION DEVELOPER.DOMESTIC HOUSEKEEPER Work Phone: [facility] 04-25-2023 10:21-0400 Systolic blood pressure 128 mm[Hg] Joshua Azar CLINICAL DOCUMENTATION DEVELOPER.DOMESTIC HOUSEKEEPER Work Phone: [facility] 01-04-2023 16:19-0500 Body temperature 97.7 [degF] Severino Khalil CLINICAL DOCUMENTATION DEVELOPER.DOMESTIC HOUSEKEEPER Work Phone: [facility] 01-04-2023 16:19-0500 Body weight 59.06 kg Severino Khalil CLINICAL DOCUMENTATION DEVELOPER.DOMESTIC HOUSEKEEPER Work Phone: [facility] 01-04-2023 16:19-0500 Diastolic blood pressure 108 mm[Hg] Severino Khalil CLINICAL DOCUMENTATION DEVELOPER.DOMESTIC HOUSEKEEPER Work Phone: [facility] 01-04-2023 16:19-0500 Heart rate 110 /min Severino Khalil CLINICAL DOCUMENTATION DEVELOPER.DOMESTIC HOUSEKEEPER Work Phone: [facility] 01-04-2023 16:19-0500 Respiratory rate 21 /min Severino Khalil CLINICAL DOCUMENTATION DEVELOPER.DOMESTIC HOUSEKEEPER Work Phone: [facility] 01-04-2023 16:19-0500 SaO2% (BldA) [Mass fraction] 97 % Severino Khalil CLINICAL DOCUMENTATION DEVELOPER.DOMESTIC HOUSEKEEPER Work Phone: [facility] 01-04-2023 16:19-0500 Systolic blood pressure 148 mm[Hg] Severino Khalil CLINICAL DOCUMENTATION DEVELOPER.DOMESTIC HOUSEKEEPER Work Phone: [facility] 12-05-2022 15:02-0500 Body temperature 98.8 [degF] Kasey Joy MD Work Phone: [facility] 12-05-2022 15:02-0500 Body weight 57.42 kg Kasey Joy MD Work Phone: [facility] 12-05-2022 15:02-0500 Diastolic blood pressure 80 mm[Hg] Kasey Joy MD Work Phone: [facility] 12-05-2022 15:02-0500 Heart rate 90 /min Kasey Joy MD Work Phone: [facility] 12-05-2022 15:02-0500 Respiratory rate 16 /min Kasey Joy MD Work Phone: [facility] 12-05-2022 15:02-0500 Systolic blood pressure 122 mm[Hg] Kasey Joy MD Work Phone: [facility] 11-30-2022 18:15-0500 Body temperature 97.59 [degF] Joseph Louis CLINICAL DOCUMENTATION DEVELOPER.DOMESTIC HOUSEKEEPER Work Phone: [facility] 11-30-2022 18:15-0500 Body weight 59.88 kg Joseph oLuis CLINICAL DOCUMENTATION DEVELOPER.DOMESTIC HOUSEKEEPER Work Phone: [facility] 11-30-2022 18:15-0500 Diastolic blood pressure 76 mm[Hg] Joseph Louis CLINICAL DOCUMENTATION DEVELOPER.DOMESTIC HOUSEKEEPER Work Phone: [facility] 11-30-2022 18:15-0500 Heart rate 104 /min Joseph Heriberto CLINICAL DOCUMENTATION DEVELOPER.DOMESTIC HOUSEKEEPER Work Phone: [facility] 11-30-2022 18:15-0500 Respiratory rate 18 /min Joseph Heriberto CLINICAL DOCUMENTATION DEVELOPER.DOMESTIC HOUSEKEEPER Work Phone: [facility] 11-30-2022 18:15-0500 SaO2% (BldA) [Mass fraction] 97 % Joseph Heriberto CLINICAL DOCUMENTATION DEVELOPER.DOMESTIC HOUSEKEEPER Work Phone: [facility] 11-30-2022 18:15-0500 Systolic blood pressure 128 mm[Hg] Joseph Heriberto CLINICAL DOCUMENTATION DEVELOPER.DOMESTIC HOUSEKEEPER Work Phone: [facility] 11-18-2022 12:50-0500 Body temperature 98.2 [degF] Celine Praisler-Wood CLINICAL DOCUMENTATION DEVELOPER.DOMESTIC HOUSEKEEPER Work Phone: [facility] 11-18-2022 12:50-0500 Body weight 59.69 kg Celine Praisler-Wood CLINICAL DOCUMENTATION DEVELOPER.DOMESTIC HOUSEKEEPER Work Phone: [facility] 11-18-2022 12:50-0500 Diastolic blood pressure 84 mm[Hg] Celine Praisler-Wood CLINICAL DOCUMENTATION DEVELOPER.DOMESTIC HOUSEKEEPER Work Phone: [facility] 11-18-2022 12:50-0500 Heart rate 110 /min Celine Praisler-Wood CLINICAL DOCUMENTATION DEVELOPER.DOMESTIC HOUSEKEEPER Work Phone: [facility] 11-18-2022 12:50-0500 Respiratory rate 20 /min Celine Praisler-Wood CLINICAL DOCUMENTATION DEVELOPER.DOMESTIC HOUSEKEEPER Work Phone: [facility] 11-18-2022 12:50-0500 SaO2% (BldA) [Mass fraction] 98 % Celine Praisler-Wood CLINICAL DOCUMENTATION DEVELOPER.DOMESTIC HOUSEKEEPER Work Phone: [facility] 11-18-2022 12:50-0500 Systolic blood pressure 132 mm[Hg] Celine Praisler-Wood CLINICAL DOCUMENTATION DEVELOPER.DOMESTIC HOUSEKEEPER Work Phone: [facility] 07-22-2022 10:31-0400 Body weight 55.07 kg John London MD Work Phone: [facility] 07-22-2022 10:31-0400 Diastolic blood pressure 80 mm[Hg] John London MD Work Phone: [facility] 07-22-2022 10:31-0400 Systolic blood pressure 120 mm[Hg] John London MD Work Phone: [facility] 07-19-2022 15:58-0400 Body weight 53.71 kg Kasey Joy MD Work Phone: [facility] 07-19-2022 15:58-0400 Diastolic blood pressure 62 mm[Hg] Kasey Joy MD Work Phone: [facility] 07-19-2022 15:58-0400 Heart rate 98 /min Kasey Joy MD Work Phone: [facility] 07-19-2022 15:58-0400 Respiratory rate 18 /min Kasey Joy MD Work Phone: [facility] 07-19-2022 15:58-0400 Systolic blood pressure 98 mm[Hg] Kasey Joy MD Work Phone: [facility] 07-04-2022 15:37-0400 Body temperature 97.39 [degF] Severino Khalil CLINICAL DOCUMENTATION DEVELOPER.DOMESTIC HOUSEKEEPER Work Phone: [facility] 07-04-2022 15:37-0400 Body weight 56.52 kg Severino Khalil CLINICAL DOCUMENTATION DEVELOPER.DOMESTIC HOUSEKEEPER Work Phone: [facility] 07-04-2022 15:37-0400 Diastolic blood pressure 94 mm[Hg] Severino Khalil CLINICAL DOCUMENTATION DEVELOPER.DOMESTIC HOUSEKEEPER Work Phone: [facility] 07-04-2022 15:37-0400 Heart rate 110 /min Severino Khalil CLINICAL DOCUMENTATION DEVELOPER.DOMESTIC HOUSEKEEPER Work Phone: [facility] 07-04-2022 15:37-0400 Respiratory rate 23 /min Severino Khalil CLINICAL DOCUMENTATION DEVELOPER.DOMESTIC HOUSEKEEPER Work Phone: [facility] 07-04-2022 15:37-0400 SaO2% (BldA) [Mass fraction] 96 % Severino Khalil CLINICAL DOCUMENTATION DEVELOPER.DOMESTIC HOUSEKEEPER Work Phone: [facility] 07-04-2022 15:37-0400 Systolic blood pressure 138 mm[Hg] Severino Khalil APRN.DOMESTIC HOUSEKEEPER Work Phone: [facility] 03-01-2022 14:04-0400 Body temperature 98.01 [degF] Joshua Azar CLINICAL DOCUMENTATION DEVELOPER.DOMESTIC HOUSEKEEPER Work Phone: [facility] 03-01-2022 14:04-0400 Body weight 57.61 kg Joshua Azar CLINICAL DOCUMENTATION DEVELOPER.DOMESTIC HOUSEKEEPER Work Phone: [facility] 03-01-2022 14:04-0400 Diastolic blood pressure 82 mm[Hg] Joshua Azar CLINICAL DOCUMENTATION DEVELOPER.DOMESTIC HOUSEKEEPER Work Phone: [facility] 03-01-2022 14:04-0400 Heart rate 76 /min Joshua Azar CLINICAL DOCUMENTATION DEVELOPER.DOMESTIC HOUSEKEEPER Work Phone: [facility] 03-01-2022 14:04-0400 Respiratory rate 16 /min Joshua Azar CLINICAL DOCUMENTATION DEVELOPER.DOMESTIC HOUSEKEEPER Work Phone: [facility] 03-01-2022 14:04-0400 Systolic blood pressure 124 mm[Hg] Joshua Azar CLINICAL DOCUMENTATION DEVELOPER.DOMESTIC HOUSEKEEPER Work Phone: [facility] Encounters Encounter Date Encounter Type Care [...] et rgnt auto w/o microscopy Severino Khalil APRN.DOMESTIC HOUSEKEEPER Work Phone: Start: 05-29-2021 Lipid 1996 panel - S viviane or Plasma Kasey Joy MD Work Phone: Start: 08-17-2018 Adult depression scr eening assessment Kasey Joy MD Work Phone: Start: 02-26-2013 Colonoscopy Kasey lee MD Work Phone: Plan of Treatment Date Care Activity Detail Author Start: 05-29-2026 Lipid 1996 panel - S viviane or Plasma Lipid Screening [facility] Start: 05-29-[address] SCREEN [facility] Start: 07-14-[address] [facility] Start: 05-29-2024 DIABETES SCREEN DIABETES SCREEN [facility] Start: 05-29-2024 Diabetes Screening Diabetes Screenin g [facility] Start: 2023 Influenza vaccination Lung Cancer Sc reening [facility] Start: 2023 Shingrix Vaccine (1 of 2) Eid grix Vaccine (1 of 2) [facility] Start: 07-21-[address] [facility] Start: 04-25-2023 End: 06-25-2023 C reactive protein [Mass/volume] in Serum or Plasma C-REACTIVE PROTEIN (CRP) Lab Routine Left lower quadrant abdominal pain Expected: 04/25/2023, Expires: 06/25/2023 [facility] Work Phone: Immunizations Immunization Date Immunization Notes Care Provider Fa [facility] 08-16-2017 influenza, injectabl e, quadrivalent, contains preservative Kasey Joy MD Work Phone: [facility] 08-16-2017 influenza virus vaccine, unspecified formulation Kasey Joy MD Work Phone: [facility] 08-19-2016 influenza, seasonal, injectable Kasey Joy MD Work Phone: [facility] 07-14-2014 tetanus toxoid, redu flora diphtheria toxoid, and acellular pertussis vaccine, adsorbed Kasey Joy MD Work Phone: [facility] Payers Date Payer Category Payer Unknown [employer] PPO OOS [id number] 2015-Present [phone] [address] [place] [address] PPO [id number] 2015 Unknown [employer] C[employer] PPO OOS [id number] 2015-Present [phone] [address] [place] [address] PPO [id number] 2015 Unknown [id number] Social History Date Type Detail Facility Start: 10-14-2015 [facility] Work Phone: History of tobacco use Cigarette Smoker C [facility] Work Phone: Start: 12-17-2021 End: 04-25-2023 Alcohol intake Current non-drinker of alcohol (finding) [facility] Start: 1975 Sex Assigned At Not on file C [facility] Start: 02-14-2022 End: 07-19-2022 Exposure to SARS-CoV-2 (event) Not sure [facility] Work Phone: Start: 10-14-2015 End: 12-05-2022 Cigarettes smoked current (pack per day) - Reported 1 [facility] Start: 10-14-2015 Tobacco use and exposure Smokeless tobacco non-user [facility] Start: 12-05-2022 End: 04-25-[address] [facility] Adult Depression Screening Assessment 0 [facility] Clinical Notes 11-27-2012 to 09-05-2023 Telephone [...] valid prescription at the pharmacy Joshua Azar APRN.DOMESTIC HOUSEKEEPER Two of medications below are showing valid [...] patient. Chantel Miller documented in this encounter [facility] 08-02-2023 Miscellaneous Notes The following approved [...] advise. Solange Suárez documented in this encounter [facility] 04-26-2023 Note Patient Outreach (IN TMMN) BELEN JASMINE ([id number]) 1975 F Date Time Provider Department 04/26/23 [...] Date Reviewed: 04/25/2023 Reviewed by: Joshua Azar APRN.DOMESTIC HOUSEKEEPER - Fully Assessed Visit Diagnosis:Encounter for screening mammogram for breast cancer [Z12.31] Order(s):[facility] SCREENING [[id number]] Order #: [id number] FUTURE Prescriptions as of 05/01/2023 - polyethylene [...] difficile enteritis [A04.72] 05/23/2018 Encounter Status:Closed by [employer], PRODUSER on 05/01/23 [facility] 04-25-2023 Note HNO ID: [id number] Author: Joshua Azar APRN.DOMESTIC HOUSEKEEPER Service: ? Author Type: Nurse Practitioner Type: [...] room follow-up. Patient initially went to [facility] for complaints of abdominal pain, abdominal swelling and vomiting. Patient was referred to emergency room. Patient went to [facility]. She had a normal CMP. She had a urinalysis that showed trace blood only. She had a CBC that was unremarkable. She had a CT of the abdomen pelvis with contrast that showed a large ovarian cyst on the left side only. No other acute on abdominal issues ongoing. Did follow-up with [facility] who treated her with NSAIDs but she [...] ICD10: N83.202 -Encourage patient to return to [facility] for second opinion 6. Chronic insomnia - ICD9: 780.52, ICD10: F51.04 -Stable, refilled - TRAZODONE 50 MG TABLET 7. Situational anxiety - ICD9: 300.09, ICD10: F41.8 -Stable, refill - HYDROXYZINE HCL 50 MG TABLET Joshua Azar APRN.CNP This note was partly generated using [employer] voice recognition dictation and may contain some misspelled or inaccurate words missed on review. [facility] 04-25-2023 Instructions Joshua Azar APRN.CNP - 04/25/2023 10:39 AM EDT Start Miralax Get xray of the abdomen Refills sent Schedule with gastroenterology If you abdomen pain gets worse, you need to go to the ER Get blood work today Joshua Azar APRN.HENRY documented in this encounter [facility] 04-25-2023 History of Presen t illness Narrative Chief Complaint Patient presents with: Recheck: In ER about 2 weeks ago for Vomiting, back and stomach pain. No improvement HPI Belen Jasmine is a 47 year old female who presents here today for ER follow up Patient is here for emergency room follow-up. Patient initially went to [facility] for complaints of abdominal pain, abdominal swelling and vomiting. Patient was referred to emergency room. Patient went to [facility]. She had a normal CMP. She had a urinalysis that showed trace blood only. She had a CBC that was unremarkable. She had a CT of the abdomen pelvis with contrast that showed a large ovarian cyst on the left side only. No other acute on abdominal issues ongoing. Did follow-up with [facility] who treated her with NSAIDs but she [...] ICD10: N83.202 -Encourage patient to return to [facility] for second opinion 6. Chronic insomnia - ICD9: 780.52, ICD10: F51.04 -Stable, refilled - TRAZODONE 50 MG TABLET 7. Situational anxiety - ICD9: 300.09, ICD10: F41.8 -Stable, refill - HYDROXYZINE HCL 50 MG TABLET Joshua Azar APRN.DOMESTIC HOUSEKEEPER This note was partly generated using [employer] voice recognition dictation and may contain some misspelled or inaccurate words missed on review. documented in this encounter [facility] 04-07-2023 Note HNO ID: [id number] Author: Danette Ball APRN.DOMESTIC HOUSEKEEPER Service: ? Author Type: Nurse Practitioner Type: [...] prefers to take herself co-pay was refunded. [facility] 01-10-2023 Miscellaneous Notes Pt notified. Pt states [...] Rima Perez RN documented in this encounter [facility] 01-04-2023 Note HNO ID: [id number] Author: Severino Khalil APRN.DOMESTIC HOUSEKEEPER Service: ? Author Type: Nurse Practitioner Type: [...] trismus, tenderness, swellin (more content not included)... [facility] 01-04-2023 History of Presen t illness Narrative [...] Sinus: Maxillary sinus tenderness present. Mouth/Throat: Lips: [place]. Mouth: Mucous membranes are moist. Pharynx: [...] with sinobronchitis. Placed on Augmentin. Risk of [id number]-[id number] antibiotic use discussed with patient. We discussed [...] Severino Khalil APRN.HENRY documented in this encounter [facility] 01-04-2023 Miscellaneous Notes Called and left [...] Gita Han RN documented in this encounter [facility] 01-03-2023 Miscellaneous Notes Noted Kasey Joy MD See note 12/31/22. Gita Han RN Ok for in office visit or phone visit? Pt does not have mychart. Nayely Cross Ma Belne Jasmine is calling Kasey Joy MD today with concern regarding sick and no fever diarrhea body aches and green and yellow mucus coughing and sneezing, headache Please call patient Phone numbers verified Patient has been identified by name and birthdate. Duration of symptoms: days Person calling: self Call patient at: on cell [phone] (home) [phone] (cell) Was an appointment scheduled: No Closing statement: Symptom Call: Thank you for calling [facility], your call is very important. A nurse will call in approximately 2-4 hours during business hours. If this is an emergency, please contact 911. Chantelle [facility]illo [facility] [place] in this encounter [facility] 12-05-2022 Note HNO ID: [id number] Author: Kasey Joy MD Service: ? Author Type: Physician Type: Progress Notes Filed: 12/05/2022 3:59 PM Note Text: Chief Complaint Patient presents with: ED Follow-up HPI Belen Jasmine is a 47 year old female who presents here today for an ER follow up. Pt here today for a [facility] ER follow up from 11/30/22 due to [...] has not had that looked into further. [facility] ED visit notes: HPI History of Present [...] was given when I need it . [facility] Narrative Medical decision making narrative: Nursing protocol [...] every 4-6 hours. She will continue her migj-fxa-sbgszeo medications. Return instructions to the emergency department [...] [Bupropi* Current Medications (more content not included)... [facility] 12-05-2022 History of Presen t illness Narrative Chief Complaint Patient presents with: ED Follow-up HPI Belen Jasmine is a 47 year old female who presents here today for an ER follow up. Pt here today for a [facility] ER follow up from 11/30/22 due to [...] has not had that looked into further. [facility] ED visit notes: HPI History of Present [...] was given when I need it . [facility] Narrative Medical decision making narrative: Nursing protocol [...] every 4-6 hours. She will continue her [id number] medications. Return instructions to the emergency department [...] Past Histories independently gathered by the clinical litigation support analyst and the remaining scribed note accurately describes [...] Nayely Cross Ma documented in this encounter [facility] 11-30-2022 Note HNO ID: [id number] Author: Joseph Louis APRN.DOMESTIC HOUSEKEEPER Service: ? Author Type: Nurse Practitioner Type: [...] /incomplete ba enema ordered CONIZATION CERVIX W/WO DANCO RPR ELTRD EXC LEEP-Cervix LAPS ABD PRTMANDOMENTUM DX W/WO SPEC BR/WA SPX Laparoscopy PAST SURGICAL HISTORY OF Hysteroscopy LIYACO PAST SURGICAL HISTORY OF Uterine Ablation TONSILLECTOMY [...] refer to TEQUILA, martha montez. Joseph Louis APRN.DOMESTIC HOUSEKEEPER [facility] 11-30-2022 History of Presen t illness Narrative [...] refer to ER, martha montez. Joseph Louis APRN.DOMESTIC HOUSEKEEPER documented in this encounter [facility] 11-18-2022 Note HNO ID: [id number] Author: Celine Ku APRN.HENRY Service: ? Author [...] SPX Laparoscopy PAST SURGICAL HISTORY OF Hysteroscopy LIYACO PAST SURGICAL HISTORY OF Uterine Ablation TONSILLECTOMY [...] Pulmonary effort is (more content not included)... [facility] 11-18-2022 History of Presen t illness Narrative [...] Discussed expected course of illness Celine Ku APRN.DOMESTIC HOUSEKEEPER documented in this encounter [facility] 11-18-2022 Instructions Celine Ku APRN.CNP - [...] Celine Ku APRN.CNP documented in this encounter [facility] 10-31-2022 Miscellaneous Notes Patient notified of results, verbalizes understanding of instructions. Yessenia Valdez LPN OK to refill as ordered She may take two of the 50 mg hydroxyzine as needed for anxiety, so go up to 100 mg at a time Kasey oJy MD 1) Patient calling asking if she can have her Hydroxyzine 50 mg for anxiety dose increased please. Patient uses [facility] for her pharmacy. Please advise 2)Patient now [...] Tiffanie Sandoval LPN documented in this encounter [facility] 09-28-2022 Miscellaneous Notes Noted Kasey Joy [...] call and advise. documented in this encounter [facility] 09-21-2022 Miscellaneous Notes Called and left a detailed voicemail notifying patient of providers message. Hospital phone number was left in case patient had any questions. Kellee Munguia RN UA ordered Kasey Joy MD Patient is complaining of UTI. Offered an appointment but she is asking for a lab order for urinalysis. documented in this encounter [facility] 09-21-2022 Miscellaneous Notes OK to refill [...] Zora Huang LPN documented in this encounter [facility] 07-22-2022 Note HNO ID: [id number] Author: John London MD Service: ? Author Type: Physician Type: Progress Notes Filed: 07/22/2022 11:10 AM Note Text: Computer Animator offered: Patient declines. Belen Jasmine is a [...] her. She also declines assistance with seeing [facility] for counseling. She does not want treatment [...] and otherwise normal, normal Bartholin's glands, urethra, [place]'s glands, no vulvar lesions, good vaginal support, [...] work, reporting assault to authorities, and seeing [facility] for counseling. Recommend cool compresses and lidocaine gel sent in to use PRN. Will call or message with results. To follow up for annual exam. John London, Medical Decision Making: Problems: Low: Acute, uncomplicated illness or injury Data: Unique test(s) ordered: 3+ Medical Decision Making Level: 3 - Low [facility] 07-22-2022 History of Presen t illness Narrative Computer Animator offered: Patient declines. Belen Jasmine is a [...] her. She also declines assistance with seeing [facility] for counseling. She does not [...] and otherwise normal, normal Bartholin's glands, urethra, [place]'s glands, no vulvar lesions, good vaginal support, [...] work, reporting assault to authorities, and seeing [facility] for counseling. Recommend cool compresses and lidocaine gel sent in to use PRN. Will call or message with results. To follow up for annual exam. John London, Medical Decision Making: Problems: Low: Acute, uncomplicated illness or injury Data: Unique test(s) ordered: 3+ Medical Decision Making Level: 3 - Low documented in this encounter [facility] 07-19-2022 Note HNO ID: [id number] Author: Kasey Joy MD Service: ? Author [...] ill. No fever. Pt was in the [facility] ER on 07/04/22 for this issue. She [...] Medicine View External Imaging - X-ray [ID [id number]] Past medical history, appointments, medications, allergies reviewed. [...] SCREENING Completed Data reviewed Epic-scanned documents from [facility] ER on 07/04/22 ASSESSMENT/PLAN: 1. Nausea - ICD9: 787.02, ICD10: R11.0 (primary diagnosis) Will get CT to evaluate; may try Phenergan for symptoms Recommended rechecking labs but she declined getting stuck again - CT ABD/PEL W IVCON 2. Situational anxiety - ICD9: 300.09, ICD10: F41.8 - HYDROXYZINE HCL 50 MG TABLET Refill other me (more content not included)... [facility] 07-19-2022 History of Presen t illness Narrative [...] ill. No fever. Pt was in the [facility] ER on 07/04/22 for this issue. She [...] [facility] External Imaging - X-ray [ID [id number]] Past medical history, appointments, medications, allergies reviewed. [...] Alcohol use: No Drug use: No EXAM: [facility] 12/26/2013 General Appearance: mildly ill appearing. Lungs: [...] SCREENING Completed Data reviewed Epic-scanned documents from [facility] ER on 07/04/22 ASSESSMENT/PLAN: 1. Nausea - [...] Past Histories independently gathered by the clinical litigation support analyst and the remaining scribed note accurately describes [...] Nayely Cross Ma documented in this encounter [facility] 07-04-2022 Note HNO ID: [id number] Author: Severino Khalil APRN.DOMESTIC HOUSEKEEPER Service: ? Author Type: Nurse Practitioner Type: [...] states she wishes to be seen at [facility] for further evaluation care. Patient will be transported to ED by significant other. Patient/significant other verbalized understanding agrees with plan of care. Severino Khalil APRN.DOMESTIC HOUSEKEEPER [facility] 07-04-2022 History of Presen t illness Narrative [...] states she wishes to be seen at [facility] for further evaluation care. Patient will be transported to ED by significant other. Patient/significant other verbalized understanding agrees with plan of care. Severino Khalil APRN.HENRY documented in this encounter [facility] 07-04-2022 Miscellaneous Notes Pt notified of [...] to office for an appointment. Upon review [facility] records indicate patient was seen for weakness [...] OTHER SYMPTOMS: Headache, body ache Protocols used: [id number] documented in this encounter [facility] 06-27-2022 Miscellaneous Notes The following approved [...] Yessenia Valdez LPN documented in this encounter [facility] 06-17-2022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
[2023-11-18 12:27] VITALS: BP 161/112; PULSE 79; RESP 18; TEMP 36.3; O2SAT 100
[2023-11-18 12:48] VITALS: BMI 21.6
[2023-11-18] MEDS: 0.9% Normal Saline (1000mL) 1,000 ML 150 ML IV ×2 (13:27→22:10)
[2023-11-18 13:39] VITALS: BP 161/110; PULSE 75; RESP 18; TEMP 36.2; O2SAT 94
[2023-11-18] MEDS: 0.9% Saline Lock 10 ML Syringe IV (15:11)
[2023-11-18] MEDS: Morphine 2 MG/ML Syringe IV ×3 (15:11→22:09)
[2023-11-18] MEDS: Potassium Chloride 10mEq/100mL 10 MEQ/100 ML IV.SOLN. 100 MEQ IV BOLUS (16:02)
[2023-11-18] MEDS: Potassium Chloride 10mEq/100mL 10 MEQ/100 ML IV.SOLN. 60 MEQ IV BOLUS ×3 (17:14→20:34)
[2023-11-18 17:30] VITALS: BP 151/96; PULSE 96; RESP 18; TEMP 36.8; O2SAT 99
[2023-11-18 22:00] VITALS: BP 145/92; PULSE 84; RESP 18; TEMP 36.8; O2SAT 98
[2023-11-19] VITALS (11 sets, daily range): BP systolic 115–168; BP diastolic 85–127; PULSE 93–124; RESP 16–20; TEMP 36.6–36.9; O2SAT 96–99
[2023-11-19] MEDS: Morphine 2 MG/ML Syringe IV ×6 (00:58→21:14)
--- NOTE | 2023-11-19 01:05 | NURSING ---
This RN entered pts room and found that pt had managed to turn off IVAC, even though the IVAC had been locked out. IVAC prompted for pin when turned back on. Pt educated on importance of leaving IV pump alone and importance of IV fluids again. Earlier in the evening, the pt was found to have unhooked IV and had placed IVACs in hallway. Pt states that the IV is annoying . This RN offered to place a new IV not in the AC, pt refused stating can't I just leave it off until tomorrow . Pt was again educated on the importance of fluids in relation to admitting diagnosis. Pt acknowledged education, but reinforcement needed.
--- NOTE | 2023-11-19 03:32 | NURSING ---
During rounds pt was found with IV fluids turned off. When turned on the IVAC was still locked out. Fluids restarted and IVAC locked out again. Pt was re-educated on importance of IV fluids. Pt requested to leave floor to smoke. Pt re-educated on hospital smoking policy.
[2023-11-19] MEDS: Labetalol (Prefilled) 20 MG/4 ML 10 MG IV ×2 (06:04→15:05)
[2023-11-19 06:26] LABS: Absolute Lymphocyte Count 1.15 X10^3/uL (0.83-4.51); Absolute Neutrophil Count 10.4 X10^3/uL (2.0-7.7); Basophil# 0.03 X10^3/uL; Basophil% 0.2 % (0-1); Eosinophil# 0.06 X10^3/uL; Eosinophils% 0.5 % (0-5); Hematocrit 49.3 % (37-47); Hemoglobin 16.2 g/dL (12.0-15.0); Lymphocyte # 1.15 X10^3/ul (0.83-4.51); Lymphocyte % 8.9 % (19-41); Mean Corp Hgb Conc 32.9 g/dL (32-36); Mean Corpuscular Hgb 32.1 pg (27.0-32.0); Mean Corpuscular Volume 97.8 fL (81-99); Mean Platelet Vol. 11.2 fl (6.2-12.0); Monocyte# 1.27 X10^3/uL; Monocyte% 9.8 % (0-10); NRBC Flagged by Analyzer 0 % (0-5); Neutrophil # 10.36 X10^3/uL (2.7-7.7); Neutrophil % 80.2 % (47-70); Platelet Count 228 K/mm3 (150-450); RBC Distribution Width CV 13.6 % (11.6-14.6); RBC Distribution Width SD 49.2 fl (35.1-43.9); Red Blood Count 5.04 M/mm3 (4.2-5.4); White Blood Count 12.9 K/mm3 (4.4-11.0)
[2023-11-19 06:51] LABS: ALB/GLOB Ratio 0.8 RATIO (0.9-2.4); AST(SGOT) 30 U/L (15-37); Alanine Aminotransfer ALT/SGPT 21 U/L (13-56); Alkaline Phosphatase 88 U/L (45-117); Anion Gap 6 (5-15); BUN 10 mg/dL (7-18); BUN/Creat Ratio 12.3 RATIO (10-20); Calcium,Total 10.6 mg/dL (8.5-10.1); Chloride 108 mmol/L (98-107); Creatinine, Serum 0.81 mg/dL (0.55-1.02); EST Glomerular Filtration Rate 79 mL/min (>60); Est Glom Filt Rate - Afr Amer 96 mL/min (>60); Estimated Creatinine Clearance 74.77 ml/min; Globulin 3.7 g/dL (2.2-4.2); Glucose 97 mg/dL (74-106); Potassium 3.4 mmol/L (3.5-5.1); Protein, Total 6.7 g/dL (6.4-8.2); Sodium Level 138 mmol/L (136-145)
[2023-11-19] MEDS: Pantoprazole Sodium 40 MG in 0.9% Normal Saline (100mL MB+) 100 ML 330 MG IV (08:58)
[2023-11-19] MEDS: Ondansetron 4 MG/2 ML Vial IV (09:17)
[2023-11-19] MEDS: 0.9% Saline Lock 10 ML Syringe IV ×3 (09:17→18:14)
--- NOTE | 2023-11-19 09:56 | PN_ITS ---
Subjective Subjective Patient seen and examined. Abdominal pain is a bit better today. She feels like she would be able to tolerate a clear liquid diet as she is very hungry. She denies any nausea or vomiting overnight. Review of systems otherwise negative. She is a bit tachycardic this morning Objective Data Objective Data Vital Signs: Vital Signs Temp Pulse Resp BP Pulse Ox O2 Del Method 98.4 F 118 H 20 H 150/108 H 96 Room Air 11/19/23 09:05 11/19/23 09:05 11/19/23 09:05 11/19/23 09:05 11/19/23 09:05 11/19/23 09:05 Oxygen Delivery Method Room Air Weight: 130 lb Body Mass Index (BMI) 21.6 Intake & Output: Intake and Output for Last 24 Hours 11/17/23 11/18/23 11/19/23 23:59 23:59 23:59 Intake Total 2598 / 2598 927.5 / 927.5 Balance 2598 / 2598 927.5 / 927.5 Lab / Micro Data 11/19/23 05:18 11/19/23 05:18 Labs: Laboratory Results - last 24 hr 11/18/23 10:30: WBC 11.3 H, RBC 4.98, Hgb 16.2 H, Hct 48.6 H, MCV 97.6, MCH 32.5 H, MCHC 33.3, RDW Std Deviation 49.3 H, RDW Coeff of Ashanti 13.6, Plt Count 278, MPV 10.5, Immature Gran % (Auto) 0.300, Neut % (Auto) 90.0 H, Lymph % (Auto) 3.7 L, [place] % (Auto) 5.6, Eos % (Auto) 0.0, Baso % (Auto) 0.4, Absolute Neuts (auto) 10.1 H, Absolute Lymphs (auto) 0.42 L, Nucleated RBC % 0, Differential Comment SCANNED, Sodium 138, Potassium 3.1 L, Chloride 103, Carbon Dioxide 26.0, Anion Gap 9, BUN 7, Creatinine 0.75, Estim Creat Clear Calc 80.75, Est GFR (MDRD) Af Amer 105, Est GFR (MDRD) Non-Af 87, BUN/Creatinine Ratio 9.3 L, Glucose 134 H, Calcium 11.1 H, Total Bilirubin 0.90, AST 35, ALT 29, Alkaline Phosphatase 98, Total Protein 7.5, Albumin 3.7, Globulin 3.8, Albumin/Globulin Ratio 1.0, Lipase 1961 H 11/19/23 05:18: WBC 12.9 H, RBC 5.04, Hgb 16.2 H, Hct 49.3 H, MCV 97.8, MCH 32.1 H, MCHC 32.9, RDW Std Deviation 49.2 H, RDW Coeff of [place]anti 13.6, Plt Count 228, MPV 11.2, Immature Gran % (Auto) 0.400, Neut % (Auto) 80.2 H, Lymph % (Auto) 8.9 L, [place] % (Auto) 9.8, Eos % (Auto) 0.5, Baso % (Auto) 0.2, Absolute Neuts (auto) 10.4 H, Absolute Lymphs (auto) 1.15, Nucleated RBC % 0, Sodium 138, Potassium 3.4 L, Chloride 108 H, Carbon Dioxide 24.0, Anion Gap 6, BUN 10, Creatinine 0.81, Estim Creat Clear Calc 74.77, Est GFR (MDRD) Af Amer 96, Est GFR (MDRD) Non-Af 79, BUN/Creatinine Ratio 12.3, Glucose 97, Calcium 10.6 H, Total Bilirubin 0.90, AST 30, ALT 21, Alkaline Phosphatase 88, Total Protein 6.7, Albumin 3.0 L, Globulin 3.7, Albumin/Globulin Ratio 0.8 L Radiography Diagnostic Testing: Radiology Impression Abdomen/Pelvis CT 11/18/23 09:23 IMPRESSION: Diffuse peripancreatic fluid and stranding, consistent with acute pancreatitis. No bowel obstruction or inflammation. Normal appendix. No urinary calculi. No hydronephrosis. Electronically Signed: Jayme Etienne MD at 10:34 EST , Physical Exam Const alert, oriented x3 and no apparent distress General Appearance: cooperative HEENT normocephalic and head/scalp atraumatic Eyes PERRL and EOMs intact bilaterally Neck no lymphadenopathy and supple Lymph Lymphatic: no lymphadenopathy noted and no lymphedema noted Resp normal respiratory effort, normal air movement and clear to auscultation bilaterally Cardio regular rhythm, S1 normal heart sound, S2 normal heart sound and no murmurs Cardio Narrative: tachycardic GI normal to inspection, nondistended, normoactive bowel sounds GI Narrative: mild epigastric and left upper quadrant pain, no guarding or rebound tenderness. Extremity normal capillary refill, no clubbing, cyanosis or edema and no calf tenderness General Extremity: no tenderness to palpation of joints or extremities Skin General Skin Exam: no breakdown and turgor normal Neuro CN's II-XII intact bilaterally, no focal motor deficits and no sensory deficits noted Motor Exam: strength 5/5 throughout and general weakness Psych thought process normal and cooperative Mood & Affect: anxious Assessment & Plan Assessment/Plan (1) Acute pancreatitis: PLAN: Plan #Acute pancreatitis * Etiology of her acute pancreatitis is not very clear. Patient does have a strong history of drinking but she says she quit recently. Patient says she thinks liquids a few weeks ago although her says she quit some months ago. It is unclear if this may be possibly in etiology. She also has a heavy history of smoking. * By CT of the abdomen and pelvis without contrast done on admission, there was evidence of diffuse peripancreatic fluid and stranding consistent with acute pancreatitis but there were no gallstones in the common bile duct was normal in caliber. * Liver enzymes not elevated. Will check triglyceride level. Hydrate aggressively with IV fluids with normal saline at 150 cc/h. IV morphine as needed for pain * abdominal pain is improving. Patient feels able to try clear liquid diet, so will orderr. * #Hypokalemia: Potassium is 3.4 today. Will replace and trend. * #Nicotine dependence: Counseled to quit. Nicotine patch 21 mg daily. #History of chronic insomnia: On trazodone nightly as needed DVT prophylaxis: Lovenox CODE STATUS: DNR CCA no intubation * Total time spent on evaluation and management of patient, reviewing chart, discussing plan with patient, discussion with nursing and ancillary staff as well as documentation: 35 mins Charges/Coding Visit Charges Inpatient E&M: 75777 Subs Hosp L2
[2023-11-19 10:28] LABS: Thyroid Stim Hormone (TSH) 0.64 uIU/mL (0.358-3.74)
[2023-11-19] MEDS: 0.9% Normal Saline (1000mL) 1,000 ML 150 ML IV (11:48)
[2023-11-19] MEDS: Calcium Carbonate 500 MG Tablet 1000 MG PO (15:10)
[2023-11-19] MEDS: traZODone 50 MG Tablet PO (21:14)
[2023-11-20] VITALS (7 sets, daily range): BP systolic 118–152; BP diastolic 76–111; PULSE 108–121; RESP 16–18; TEMP 36.6–36.9; O2SAT 93–98
[2023-11-20] MEDS: Morphine 2 MG/ML Syringe IV ×2 (02:16→06:11)
[2023-11-20] MEDS: Calcium Carbonate 500 MG Tablet 1000 MG PO (02:16)
[2023-11-20 05:18] LABS: Absolute Lymphocyte Count 1.87 X10^3/uL (0.83-4.51); Absolute Neutrophil Count 7.6 X10^3/uL (2.0-7.7); Basophil# 0.05 X10^3/uL; Basophil% 0.5 % (0-1); Eosinophil# 0.26 X10^3/uL; Eosinophils% 2.4 % (0-5); Hematocrit 45.8 % (37-47); Hemoglobin 15.1 g/dL (12.0-15.0); Lymphocyte # 1.87 X10^3/ul (0.83-4.51); Lymphocyte % 17.6 % (19-41); Mean Corpuscular Hgb 32.4 pg (27.0-32.0); Mean Corpuscular Volume 98.3 fL (81-99); Mean Platelet Vol. 10.8 fl (6.2-12.0); Monocyte# 0.87 X10^3/uL; Monocyte% 8.2 % (0-10); NRBC Flagged by Analyzer 0 % (0-5); Neutrophil # 7.55 X10^3/uL (2.7-7.7); Platelet Count 187 K/mm3 (150-450); RBC Distribution Width CV 13.5 % (11.6-14.6); RBC Distribution Width SD 49.7 fl (35.1-43.9); Red Blood Count 4.66 M/mm3 (4.2-5.4); White Blood Count 10.6 K/mm3 (4.4-11.0)
[2023-11-20 05:48] LABS: ALB/GLOB Ratio 0.7 RATIO (0.9-2.4); AST(SGOT) 31 U/L (15-37); Alanine Aminotransfer ALT/SGPT 19 U/L (13-56); Albumin, Serum 2.7 g/dL (3.2-5.0); Alkaline Phosphatase 75 U/L (45-117); Anion Gap 7 (5-15); BUN 7 mg/dL (7-18); BUN/Creat Ratio 9.6 RATIO (10-20); Calcium,Total 9.9 mg/dL (8.5-10.1); Chloride 106 mmol/L (98-107); Creatinine, Serum 0.73 mg/dL (0.55-1.02); EST Glomerular Filtration Rate 90 mL/min (>60); Est Glom Filt Rate - Afr Amer 109 mL/min (>60); Estimated Creatinine Clearance 82.96 ml/min; Globulin 3.7 g/dL (2.2-4.2); Glucose 88 mg/dL (74-106); Potassium 3.4 mmol/L (3.5-5.1); Protein, Total 6.4 g/dL (6.4-8.2); Sodium Level 139 mmol/L (136-145)
[2023-11-20] MEDS: Pantoprazole Sodium 40 MG in 0.9% Normal Saline (100mL MB+) 100 ML 330 MG IV (08:05)
[2023-11-20] MEDS: Bisacodyl 10 MG Suppository RC (08:05)
[2023-11-20] MEDS: Polyethylene Glycol 3350 17 GM PACKET PO (08:05)
[2023-11-20 08:40] LABS: Cholesterol 195 mg/dL (200); High Density Lipoprotein 57 mg/dL; Triglycerides 168 mg/dL; Very Low Density Lipoprotein 34 mg/dL (5-40)
--- NOTE | 2023-11-20 09:57 | PN.HOSP_ITS ---
Subjective Subjective Doing well, thinks that the majority of her abdominal pain now is due to constipation will initiate a bowel regimen Objective Data Objective Data Vital Signs: Vital Signs Temp Pulse Resp BP Pulse Ox O2 Del Method 97.8 F 111 H 16 118/76 93 Room Air 11/20/23 02:15 11/20/23 08:16 11/20/23 02:15 11/20/23 02:15 11/20/23 08:30 11/20/23 08:30 Oxygen Delivery Method Room Air Weight: 130 lb Body Mass Index (BMI) 21.6 Intake & Output: Intake and Output for Last 24 Hours 11/19/23 11/20/23 11/21/23 03:59 03:59 03:59 Intake Total 2598 / 2598 2530.0 / 2530.0 110 / 110 Balance 2598 / 2598 2530.0 / 2530.0 110 / 110 Lab / Micro Data 11/20/23 04:54 11/20/23 04:54 Labs: Laboratory Results - last 24 hr 11/19/23 05:18: TSH 0.64 11/20/23 04:54: WBC 10.6, RBC 4.66, Hgb 15.1 H, Hct 45.8, MCV 98.3, MCH 32.4 H, MCHC 33.0, RDW Std Deviation 49.7 H, RDW Coeff of Ashanti 13.5, Plt Count 187, MPV 10.8, Immature Gran % (Auto) 0.300, Neut % (Auto) 71.0 H, Lymph % (Auto) 17.6 L, [place] % (Auto) 8.2, Eos % (Auto) 2.4, Baso % (Auto) 0.5, Absolute Neuts (auto) 7.6, Absolute Lymphs (auto) 1.87, Nucleated RBC % 0, Sodium 139, Potassium 3.4 L , Chloride 106, Carbon Dioxide 26.0, Anion Gap 7, BUN 7, Creatinine 0.73, Estim Creat Clear Calc 82.96, Est GFR (MDRD) Af Amer 109, Est GFR (MDRD) Non-Af 90, BUN/Creatinine Ratio 9.6 L, Glucose 88, Calcium 9.9, Total Bilirubin 0.80, AST 3 1, ALT 19, Alkaline Phosphatase 75, Total Protein 6.4, Albumin 2.7 L, Globulin 3.7, Albumin/Globulin Ratio 0.7 L, Triglycerides 168, Cholesterol 195, LDL Cholesterol 104, VLDL Cholesterol 34, HDL Cholesterol 57 Physical Exam Narrative General: Alert, Oriented x3, Cooperative, No apparent distress HEENT: Atraumatic, PERRLA, EOMI, Normocephalic Oral: Moist Mucosa Neck: Supple, No JVD Lungs: Diminished, Normal air movement, No rhonchi, No wheeze, No rales Cardiovascular: Regular rate, Regular Rhythm, Normal S1, Normal S2, No murmurs Abdomen: Soft, mild tender, Non-Distended, No Hepato-splenomegaly Extremities: No edema, Capillary Refill Less than 3 Seconds Skin: No rashes, No breakdown Musculoskeletal: No Tenderness to Palpation of Joints or Extremities Neurological: Cranial nerves II-XII grossly intact, Motor Exam 5/5 strength throughout, Sensory exam intact to light touch and pain Psych/Mental Status: Normal Affect, Appropriate Assessment & Plan Assessment/Plan (1) Acute pancreatitis: PLAN: Plan #Acute pancreatitis/GERD * Etiology of her acute pancreatitis is not very clear. Patient does have a strong history of drinking but she says she quit recently. Patient says she thinks liquids a few weeks ago although her says she quit some months ago. It is unclear if this may be possibly in etiology. She also has a heavy history of smoking. * By CT of the abdomen and pelvis without contrast done on admission, there was evidence of diffuse peripancreatic fluid and stranding consistent with acute pancreatitis but there were no gallstones in the common bile duct was normal in caliber. * Liver enzymes not elevated. Will check triglyceride level. Hydrate aggressively with IV fluids with normal saline at 150 cc/h. IV morphine as needed for pain * abdominal pain is improving. Will initiate this aggressive bowel regimen as she states that she has IBS?C and advance to full liquid diet this low-fat if she tolerates can advance further * Continue with PPI #Hypokalemia: Potassium is 3.4 today. * Will obtain a magnesium and phosphorus #Nicotine dependence: Counseled to quit. Nicotine patch 21 mg daily. #History of chronic insomnia: On trazodone nightly as needed DVT: Lovenox Charges/Coding Visit Charges Inpatient E&M: 60225 Subs Hosp L2
[2023-11-20] MEDS: oxyCODONE 5 MG Tablet PO ×3 (10:10→20:23)
[2023-11-20 10:21] LABS: Magnesium 1.6 mg/dL (1.6-2.6); Phosphorus 3.5 mg/dL (2.5-4.9)
[2023-11-20] MEDS: Potassium Chloride Oral Tablet 20 MEQ 40 MEQ PO (15:16)
[2023-11-20] MEDS: Magnesium Chloride 64 MG Delay Rel.Tablet 192 MG PO (15:48)
[2023-11-20] MEDS: traZODone 50 MG Tablet PO (20:22)
[2023-11-20] MEDS: Labetalol (Prefilled) 20 MG/4 ML 10 MG IV (20:40)
[2023-11-20] MEDS: 0.9% Saline Lock 10 ML Syringe IV (20:40)
[2023-11-21 00:18] VITALS: BP 133/93; PULSE 108; RESP 16; TEMP 37.1; O2SAT 100
[2023-11-21] MEDS: oxyCODONE 5 MG Tablet PO ×3 (00:36→20:27)
[2023-11-21 05:40] VITALS: BP 149/104; PULSE 110; RESP 16; TEMP 36.6; O2SAT 97
[2023-11-21] MEDS: Magnesium Citrate 300 ML PO (05:42)
[2023-11-21 07:23] VITALS: O2SAT 92
[2023-11-21 07:49] LABS: Absolute Neutrophil Count 7.5 X10^3/uL (2.0-7.7); Basophil# 0.05 X10^3/uL; Basophil% 0.5 % (0-1); Eosinophil# 0.21 X10^3/uL; Hematocrit 38.7 % (37-47); Hemoglobin 12.9 g/dL (12.0-15.0); Lymphocyte % 15.4 % (19-41); Mean Corp Hgb Conc 33.3 g/dL (32-36); Mean Corpuscular Hgb 32.7 pg (27.0-32.0); Mean Platelet Vol. 11.3 fl (6.2-12.0); Monocyte# 1.02 X10^3/uL; Monocyte% 9.8 % (0-10); NRBC Flagged by Analyzer 0 % (0-5); Neutrophil % 71.9 % (47-70); Platelet Count 149 K/mm3 (150-450); RBC Distribution Width CV 13.3 % (11.6-14.6); Red Blood Count 3.95 M/mm3 (4.2-5.4); White Blood Count 10.4 K/mm3 (4.4-11.0)
[2023-11-21 08:27] VITALS: BP 146/101; PULSE 107; RESP 18; TEMP 36.3; O2SAT 99
[2023-11-21] MEDS: Polyethylene Glycol 3350 17 GM PACKET PO (08:37)
[2023-11-21] MEDS: Pantoprazole Sodium 40 MG Tablet PO (08:46)
[2023-11-21 09:12] LABS: Anion Gap 6 (5-15); BUN 4 mg/dL (7-18); BUN/Creat Ratio 7.3 RATIO (10-20); Calcium,Total 9.8 mg/dL (8.5-10.1); Chloride 108 mmol/L (98-107); Creatinine, Serum 0.55 mg/dL (0.55-1.02); EST Glomerular Filtration Rate 125 mL/min (>60); Est Glom Filt Rate - Afr Amer 152 mL/min (>60); Estimated Creatinine Clearance 110.11 ml/min; Glucose 118 mg/dL (74-106); Sodium Level 138 mmol/L (136-145)
--- NOTE | 2023-11-21 09:22 | PN.HOSP_ITS ---
Subjective Subjective Denies any significant abdominal pain but still feels very bloated and constipated unable to have a bowel movement yesterday Objective Data Objective Data Vital Signs: Vital Signs Temp Pulse Resp BP Pulse Ox O2 Del Method 97.4 F L 107 H 18 146/101 H 99 Room Air 11/21/23 08:27 11/21/23 08:27 11/21/23 08:27 11/21/23 08:27 11/21/23 08:27 11/21/23 08:30 Oxygen Delivery Method Room Air Weight: 130 lb Body Mass Index (BMI) 21.6 Intake & Output: Intake and Output for Last 24 Hours 11/20/23 11/21/23 11/22/23 03:59 03:59 03:59 Intake Total 2530.0 / 2530.0 110 / 110 Balance 2530.0 / 2530.0 110 / 110 Lab / Micro Data 11/21/23 07:24 11/21/23 07:24 Labs: Laboratory Results - last 24 hr 11/20/23 04:54: Phosphorus 3.5, Magnesium 1.6 11/21/23 07:24: WBC 10.4, RBC 3.95 L, Hgb 12.9, Hct 38.7, MCV 98.0, MCH 32.7 H, MCHC 33.3, RDW Std Deviation 48.0 H, RDW Coeff of Ashanti 13.3, Plt Count 149 L, MPV 11.3, Immature Gran % (Auto) 0.400, Neut % (Auto) 71.9 H, Lymph % (Auto) 15.4 L, [place] % (Auto) 9.8, Eos % (Auto) 2.0, Baso % (Auto) 0.5, Absolute Neuts (auto) 7.5, Absolute Lymphs (auto) 1.60, Nucleated RBC % 0, Sodium 138, Potassium 3.0 L , Chloride 108 H, Carbon Dioxide 24.0, Anion Gap 6, BUN 4 L, Creatinine 0.55, E stim Creat Clear Calc 110.11, Est GFR (MDRD) Af Amer 152, Est GFR (MDRD) Non-Af 125, BUN/Creatinine Ratio 7.3 L, Glucose 118 H, Calcium 9.8 Physical Exam Narrative General: Alert, Oriented x3, Cooperative, No apparent distress HEENT: Atraumatic, PERRLA, EOMI, Normocephalic Oral: Moist Mucosa Neck: Supple, No JVD Lungs: Diminished, Normal air movement, No rhonchi, No wheeze, No rales Cardiovascular: Regular rate, Regular Rhythm, Normal S1, Normal S2, No murmurs Abdomen: Soft, mild tender, Non-Distended, No Hepato-splenomegaly Extremities: No edema, Capillary Refill Less than 3 Seconds Skin: No rashes, No breakdown Musculoskeletal: No Tenderness to Palpation of Joints or Extremities Neurological: Cranial nerves II-XII grossly intact, Motor Exam 5/5 strength throughout, Sensory exam intact to light touch and pain Psych/Mental Status: Normal Affect, Appropriate Assessment & Plan Assessment/Plan (1) Acute pancreatitis: PLAN: Plan 1. Acute pancreatitis/GERD * Etiology of her acute pancreatitis is not very clear. Patient does have a strong history of drinking but she says she quit recently. Patient says she thinks liquids a few weeks ago although her says she quit some months ago. It is unclear if this may be possibly in etiology. She also has a heavy history of smoking. * By CT of the abdomen and pelvis without contrast done on admission, there was evidence of diffuse peripancreatic fluid and stranding consistent with acute pancreatitis but there were no gallstones in the common bile duct was normal in caliber. * Liver enzymes not elevated. Will check triglyceride level. Hydrate aggressively with IV fluids with normal saline at 150 cc/h. IV morphine as needed for pain * abdominal pain is improving. Will initiate this aggressive bowel regimen as she states that she has IBS?C and advance to full liquid diet this low-fat if she tolerates can advance further * Continue with PPI 2. History of chronic insomnia: On trazodone nightly as needed DVT: Lovenox Charges/Coding Visit Charges Inpatient E&M: 74150 Subs Hosp L2
[2023-11-21] MEDS: Lactulose 20 GM/30 ML UDC PO (10:33)
--- NOTE | 2023-11-21 13:30 | CASEMGMT ---
RN BRENDA Face to Face with patient for initial transition planning/care coordination assessment. RN RBENDA introduced self and role at [facility]. Patient lying in bed, alert and oriented. Patient willing to participate in assessment and is able to answer all questions appropriately. Care providers, pharmacy, and demographics verified. PCP: Mariel[facility] Specialists: Denies Preferred Pharmacy: [facility] Insurance: [place] Prescription Benefit: yes LNOK: No contacts listed and pt declines listing an emergency contact. Living Arrangements: Pt lives in a split level home with no steps to enter. Pt reports she is I in ADL's and denies concerns at home. Transportation: Pt drives self and denies concerns with transportation. DME/HHC: No DME, No hx of HHC or SNF stays. Pt states she recently stopped drinking alcohol and smoking cigarettes. Pt did not want to give date this stopped. Patient wishes to discharge home, denies need for any homegoing needs at this time. Patient states she has no further needs or concerns at this time. CM to follow for discharge planning needs that may arise. Pt goal: Home Disposition Plan: Home
[2023-11-21 14:09] VITALS: BP 149/109; PULSE 108; RESP 18; TEMP 36.6; O2SAT 100
[2023-11-21] MEDS: Calcium Carbonate 500 MG Tablet 1000 MG PO (14:17)
[2023-11-21 20:09] VITALS: BP 154/108; PULSE 99; RESP 18; TEMP 37.3; O2SAT 100
[2023-11-21] MEDS: traZODone 50 MG Tablet PO (20:27)
[2023-11-22 01:11] VITALS: BP 154/102; PULSE 115; RESP 18; TEMP 37.1; O2SAT 99
[2023-11-22] MEDS: oxyCODONE 5 MG Tablet PO (01:21)
[2023-11-22] MEDS: Menthol/Lanolin/Calamine/Znox 113 GM Tube 1 APPLIC TOPICAL (01:23)
[2023-11-22 06:54] VITALS: BP 139/100; PULSE 112; RESP 18; TEMP 36.8; O2SAT 97
[2023-11-22] MEDS: Lactulose 20 GM/30 ML UDC PO (07:00)
[2023-11-22 07:46] LABS: Absolute Neutrophil Count 6.9 X10^3/uL (2.0-7.7); Basophil# 0.06 X10^3/uL; Basophil% 0.6 % (0-1); Eosinophils% 1.9 % (0-5); Hematocrit 39.2 % (37-47); Hemoglobin 13.1 g/dL (12.0-15.0); Lymphocyte % 19.8 % (19-41); Mean Corp Hgb Conc 33.4 g/dL (32-36); Mean Corpuscular Hgb 32.4 pg (27.0-32.0); Mean Platelet Vol. 12.2 fl (6.2-12.0); Monocyte# 1.28 X10^3/uL; Monocyte% 12.1 % (0-10); NRBC Flagged by Analyzer 0 % (0-5); Neutrophil # 6.89 X10^3/uL (2.7-7.7); Neutrophil % 65.1 % (47-70); Platelet Count 170 K/mm3 (150-450); RBC Distribution Width CV 13.4 % (11.6-14.6); RBC Distribution Width SD 48.3 fl (35.1-43.9); Red Blood Count 4.04 M/mm3 (4.2-5.4); White Blood Count 10.6 K/mm3 (4.4-11.0)
[2023-11-22 08:36] LABS: Anion Gap 5 (5-15); BUN 4 mg/dL (7-18); BUN/Creat Ratio 7.3 RATIO (10-20); Chloride 107 mmol/L (98-107); Creatinine, Serum 0.55 mg/dL (0.55-1.02); EST Glomerular Filtration Rate 124 mL/min (>60); Est Glom Filt Rate - Afr Amer 150 mL/min (>60); Estimated Creatinine Clearance 110.11 ml/min; Glucose 118 mg/dL (74-106); Magnesium 1.9 mg/dL (1.6-2.6); Potassium 3.4 mmol/L (3.5-5.1); Sodium Level 138 mmol/L (136-145)
--- NOTE | 2023-11-22 08:51 | DCINST_ITS ---
Discharge Instructions Diet Discharge Diet: Low fat / Low cholesterol Activity Discharge Activity: Return to Normal Activity Dressing / Incision Call your doctor if you observe: Fever of 101 or Higher, Shortness of breath, Dizziness, Fainting spells, Swelling in the ankles, Chest pain and Increased palpitations (irregular heartbeat) Follow Up Care Test Results: Test results from this visit will be discussed in further detail at your follow- up appointment, if applicable. Discharge Plan Admission Admit Date/Time: 11/18/23 11:48 Attending Provider: Vineet Graham Primary Care Provider: Liborio Arceo Consulting Providers: Marimar Akers Discharge Orders/Prescriptions Prescriptions: Continued pantoprazole [Protonix] 40 mg tablet,delayed release (DR/EC) 40 mg PO DAILY Qty: 10 0RF hydroxyzine HCl 50 mg tablet 50 mg PO Q8H Patient Comments: Take 1 to 2 tablets by mouth every 6 hours as needed for anxiety. trazodone 50 mg tablet 50 mg PO QHS Patient Comments: Take 1 tablet by mouth daily at bedtime. Referrals / Follow Up: Liborio Arceo MD [Primary Care Provider] - Within 1 Week Disposition Disposition (needs filled in before D/C Order can be placed): Home, Self Care
--- NOTE | 2023-11-22 09:06 | NURSING ---
Patient came out to desk dressed in her street clothes and states she has called a taxi and wants to leave. embossing press operator notified Dr. Graham of same. DC paperwork was given. Patient did not want to get VS taken or have assessment completed or meds. Patient walked down to main entrance herself.
--- NOTE | 2023-11-22 11:14 | PCM.DC.SUM ---
Providers Date of Admission: 11/18/23 Primary Care Physician: Dr. Liborio Arceo MD Reason For Visit: ACUTE PANCREATITIS Diagnosis Discharge Diagnosis (1) Acute pancreatitis: Status: Acute Code(s): K85.90 - Acute pancreatitis without necrosis or infection, unspecified Medications at Discharge Home Medications pantoprazole 40 mg tablet,delayed release (Protonix) 40 mg PO DAILY #10 tabs 07/04/22 hydroxyzine HCl 50 mg tablet 50 mg PO Q8H 11/18/23 trazodone 50 mg tablet 50 mg PO QHS 11/18/23 Hospital Course Operations None Procedures None Summary of Care Provided Minutes Spent on Discharge: 38 Hospital Course: Per HPI: ARLYN BALBUENA, is a 48 F with a PMh as outlined who presents via the DD on 11/18/2023 with a complaint of nausea and vomiting for 4 days prior to admission. Vomiting was bilious in nature. She had associated abdominal pain which was mainly due to the vomiting. She had had a recent upper respiratory tract illness which was presumed to be viral and had resolved. She has not had pancreatitis in the past before. She denied any fever or chills. Review of systems is otherwise negative. Vitals in the ED were BP of 145/117, OH of 94, RR of 16 and she was saturating at 96% on room air. CBC showed WBC of 11.3 with hemoglobin of 16.2 and platelets of 278. Chemistry shows sodium of 138 with potassium of 3.1 and creatinine of 0.75. Lipase was 1961. CT abdomen and pelvis showed diffuse peripancreatic fluid and stranding consistent with acute pancreatitis, with no evidence of gallstones and common bile duct being normal in caliber. She has been admitted to be managed for acute pancreatitis of unclear etiology. Hospital course: 1. Acute pancreatitis/GERD/IBS with constipation?48-year-old female presents to the hospital with nausea and vomiting as well as abdominal pain. She was found to have an elevated lipase with peripancreatic stranding on CT scan consistent with pancreatitis. Common bile ducts were normal caliber and no obvious evidence of gallstone LFTs were unremarkable and triglycerides were 168. Unclear as to the etiology and I do recommend following up with gastroenterology as an outpatient with referral from her PCP. I do recommend that she follow-up with her PCP in 3 to 5 days upon discharge. Discharge was delayed due to fairly significant constipation. She was placed on aggressive bowel regimen and finally had a bowel movement yesterday she was able to tolerate a regular diet for dinner and breakfast today without any increase in abdominal pain. I discussed with her the plan for discharge today she expressed understanding of the risk benefits of going home and would like to go home today. In the hospital her blood pressures were little bit high in the 150s to 160s systolic however I recommend she follow-up with her PCP as an outpatient for continued monitoring and if necessary to initiate antihypertensive therapy as an outpatient. Physical Exam Narrative General: Alert, Oriented x3, Cooperative, No apparent distress HEENT: Atraumatic, PERRLA, EOMI, Normocephalic Oral: Moist Mucosa Neck: Supple, No JVD Lungs: Diminished, Normal air movement, No rhonchi, No wheeze, No rales Cardiovascular: Regular rate, Regular Rhythm, Normal S1, Normal S2, No murmurs Abdomen: Soft, mild tender, Non-Distended, No Hepato-splenomegaly Extremities: No edema, Capillary Refill Less than 3 Seconds Skin: No rashes, No breakdown Musculoskeletal: No Tenderness to Palpation of Joints or Extremities Neurological: Cranial nerves II-XII grossly intact, Motor Exam 5/5 strength throughout, Sensory exam intact to light touch and pain Psych/Mental Status: Normal Affect, Appropriate Weight / BMI Weight Weight: 130 lb Body Mass Index (BMI) 21.6 ABG / Lab / Microbiology Data 11/22/23 07:19 11/22/23 07:19 Laboratory: Laboratory Results - last 24 hr 11/22/23 07:19: WBC 10.6, RBC 4.04 L, Hgb 13.1, Hct 39.2, MCV 97.0, MCH 32.4 H, MCHC 33.4, RDW Std Deviation 48.3 H, RDW Coeff of [place] 13.4, Plt Count 170, MPV 12.2 H, Immature Gran % (Auto) 0.500, Neut % (Auto) 65.1, Lymph % (Auto) 19.8, [place] % (Auto) 12.1 H, Eos % (Auto) 1.9, Baso % (Auto) 0.6, Absolute Neuts (auto) 6.9, Absolute Lymphs (auto) 2.10, Nucleated RBC % 0, Sodium 138, Potassium 3.4 L, Chloride 107, Carbon Dioxide 26.0, Anion Gap 5, BUN 4 L, Creatinine 0.55, Estim Creat Clear Calc 110.11, Est GFR (MDRD) Af Amer 150, Est GFR (MDRD) Non-Af 124, BUN/Creatinine Ratio 7.3 L, Glucose 118 H, Calcium 10.0, Magnesium 1.9 D/C Instructions Discharge Diet: Low fat / Low cholesterol Call your doctor if you observe: Fever of 101 or Higher, Shortness of breath, Dizziness, Fainting spells, Swelling in the ankles, Chest pain and Increased palpitations (irregular heartbeat) Meaningful Use Info Meaningful Use Diagnoses (Choose all that apply): None applicable Discharge Plan Admission Admit Date/Time: 11/18/23 11:48 Attending Provider: Vineet Graham Primary Care Provider: Liborio Arceo Consulting Providers: Marimar Akers Discharge Orders/Prescriptions Prescriptions: Continued pantoprazole [Protonix] 40 mg tablet,delayed release (DR/EC) 40 mg PO DAILY Qty: 10 0RF hydroxyzine HCl 50 mg tablet 50 mg PO Q8H Patient Comments: Take 1 to 2 tablets by mouth every 6 hours as needed for anxiety. trazodone 50 mg tablet 50 mg PO QHS Patient Comments: Take 1 tablet by mouth daily at bedtime. Referrals / Follow Up: Liborio Arceo MD [Primary Care Provider] - Within 1 Week Disposition Disposition (needs filled in before D/C Order can be placed): Home, Self Care Charges/Coding Visit Charges Inpatient E&M: 65452 Disch Hosp >30min
== END 2023-11-22 09:00 | disposition home or self-care (01) | DRG 440 ==
LOC: ED 11:36 → MS3 12:04
PROVIDERS: Admitting Provider Student in an Organized Health Care Education/Training Program; Emergency Provider Emergency Medicine; PCP Family Medicine; Visit Provider Family Medicine
DX: K85.90 Acute pancreatitis without necrosis or infection, unspecified (principal); E87.6 Hypokalemia; F32.A Depression, unspecified; K58.1 Irritable bowel syndrome with constipation; K21.9 Gastro-esophageal reflux disease without esophagitis; F41.9 Anxiety disorder, unspecified; F17.210 Nicotine dependence, cigarettes, uncomplicated; F17.290 Nicotine dependence, other tobacco product, uncomplicated; Z66 Do not resuscitate; Z86.16 Personal history of COVID-19; F51.04 Psychophysiologic insomnia
CPT/HCPCS: 36415; 74176; 80048; 80053; 80061; 83690; 83735; 84100; 84443; 85025; 99284; 99406; J7030; A4216; J2405

== ENCOUNTER 2024-03-22 08:18 | Emergency (ER) | payer BC, SELFPAY ==
[2024-03-22 08:18] VITALS: BP 167/114; BP 168/111; PULSE 111; PULSE 112; RESP 20; TEMP 36.6; O2SAT 100; BMI 24.5
--- NOTE | 2024-03-22 08:28 | EDS_ITS ---
HPI HPI - GI History of Present Illness Chief Complaint: Abd Pain Informant: patient Abdominal Pain/Flank Pain Onset: Weeks (1) Context: Gradual Onset Timing: Continuous Quality: Aching and Burning Location: Diffuse Worsened by: Nothing Relieved by: Nothing Nausea/Vomiting/Emesis GI Symptom: Positive for Nausea and Vomiting Onset: Weeks (1) Quality: Positive for Nonbilious; Negative for Blood streaks, Coffee ground or Hematemesis Diarrhea/Melena/Hematochezia GI Symptom: Negative for Diarrhea, Melena or Hematochezia Associated Symptoms Associated Symptoms: Negative for Dysuria, Frequency or Hematuria Narrative Narrative: Patient presents with abdominal pain, nausea, vomiting, and constipation that has been getting worse over the past week. Patient states she is vomiting up stomach contents. Patient denies any hematemesis or coffee-ground emesis. Patient states her pain is diffuse across her entire abdomen. Patient describes it as aching and burning. Patient states nothing makes it better nothing makes it worse. Patient denies any diarrhea, melena, or hematochezia. Patient denies any dysuria, frequency, or hematuria. Patient denies any fevers or chills. [facility] Medical History Anxiety COVID GERD (gastroesophageal reflux disease) Hepatitis History of hyperactive airway disease History of ureterolithiasis Home Medications pantoprazole 40 mg tablet,delayed release (Protonix) 40 mg PO DAILY #10 tabs 07/04/22 [Rx Last Taken Unknown] hydroxyzine HCl 50 mg tablet 50 mg PO Q8H 11/18/23 [History Last Taken Unknown] buspirone 5 mg tablet 5 mg PO BID 03/22/24 [History Last Taken Unknown] hydrocodone-acetaminophen 5-325mg 5mg-325mg 1 tab PO Q6H PRN PRN Pain 3 days #10 TABLETS 03/22/24 [Rx Last Taken Unknown] lisinopril 10 mg tablet 10 mg PO DAILY 03/22/24 [History Last Taken Unknown] ondansetron 4 mg disintegrating tablet 4 mg PO Q8H PRN PRN Nausea #10 tabs 03/22/24 [Rx Last Taken Unknown] trazodone 100 mg tablet 100 mg PO QHS 03/22/24 [History Last Taken Unknown] Allergy/AdvReac Type Severity Reaction Status Date / Time bupropion HCl AdvReac Other Verified 03/22/24 08:19 [From Wellbutrin] doxycycline AdvReac Other Verified 03/22/24 08:19 tramadol AdvReac Other Verified 03/22/24 08:19 Surgical History H/O: hysterectomy Hx of tonsillectomy Social History Smoking Status: Current every day smoker tobacco type: cigarettes and e- cigarettes ROS ROS ED Constitutional Constitutional ED: Denies chills or fever(s) Eyes Eyes: Denies blurry vision or change in vision ENT ENT ED: Denies rhinorrhea or sore throat Cardiovascular Cardiovascular: Reports chest pain; Denies palpitations Respiratory/Chest Respiratory/Chest: Denies cough or dyspnea Gastrointestinal Gastrointestinal: Reports abdominal pain, constipation, nausea and vomiting; Denies diarrhea or melena Genitourinary Genitourinary ED: Denies dysuria or hematuria Musculoskeletal Musculoskeletal: Reports back pain; Denies neck pain Integumentary Denies abscess or rash Neurologic Neurologic: Reports headache(s); Denies weakness Allergic/Immunologic Allergic/Immunologic ED: Denies mouth swelling or urticaria EXAM Physical Exam Const Vital Signs: 03/22/24 08:18 03/22/24 08:18 03/22/24 10:18 Temperature 98 F Temperature Source Temporal Pulse Rate 111 H 112 H 89 Respiratory Rate 20 H 20 H 16 Blood Pressure 167/114 H 168/111 H 154/90 H Blood Pressure Mean 131 130 111 Pulse Ox 100 100 99 Oxygen Delivery Method Room Air Room Air 03/22/24 12:00 Temperature 97.6 F L Temperature Source Oral Pulse Rate 79 Respiratory Rate 16 Blood Pressure 142/87 H Blood Pressure Mean 105 Pulse Ox 98 Oxygen Delivery Method Room Air Positive well nourished and well developed General Appearance ED: well developed and NAD HEENT Reports moist mucous membranes Neck supple and no JVD Resp normal respiratory effort and clear to auscultation bilaterally Cardio regular rhythm Rate: tachycardic GI non-distended Palpation: soft and tender epigastric, LLQ, RLQ, LUQ, RUQ, periumbilical and suprapubic; Negative for guarding or rebound tenderness present Neuro CN's II-XII intact bilaterally, moves all extremities and no sensory deficits noted Sensorium / Orientation: alert Motor Exam: strength 5/5 throughout Psych mental status grossly normal and thought process normal Skin no wounds MDM MDM MDM Narrative Medical decision making narrative: Differential diagnosis includes gastritis, gastroenteritis, peptic ulcer disease , duodenal ulcer, pancreatitis, pyelonephritis, bowel obstruction, and perforation. CBC will be obtained to assess for leukocytosis and anemia. Comprehensive metabolic profile will be obtained to assess for hepatic function, renal function, and electrolyte abnormality. Lipase will be obtained to assess for pancreatitis. Urinalysis will be obtained to assess for urinary tract infection and hematuria. CT scan of the abdomen and pelvis will be obtained to assess for bowel obstruction, perforation, and pancreatitis. Lab Data Attestation: I reviewed the patient's lab results. Lab results narrative: CBC was reviewed. There is a mild leukocytosis of 11.3. The remainder is within normal limits. Comprehensive metabolic profile was reviewed. Sodium was slightly low at 132. The remainder was essentially within normal limits. Lipase was reviewed and was somewhat elevated at 199. This is improved from previous lipase that was obtained when she was admitted for pancreatitis. Urinalysis was reviewed. There is no evidence of urinary tract infection or hematuria. Labs: Laboratory Results - last 24 hr 03/22/24 09:00 WBC 11.3 H RBC 4.39 Hgb 14.2 Hct 41.5 MCV 94.5 MCH 32.3 H MCHC 34.2 RDW Std Deviation 42.5 RDW Coeff of Ashanti 12.1 Plt Count 194 MPV 11.2 Immature Gran % (Auto) 0.400 Neut % (Auto) 74.4 H Lymph % (Auto) 16.1 L Humphreys % (Auto) 7.3 Eos % (Auto) 1.4 Baso % (Auto) 0.4 Absolute Neuts (auto) 8.4 H Absolute Lymphs (auto) 1.82 Nucleated RBC % 0 Sodium 132 L Potassium 3.7 Chloride 97 L Carbon Dioxide 25.0 Anion Gap 10 BUN 6 L Creatinine 0.65 Estim Creat Clear Calc 93.17 Est GFR (MDRD) Af Amer 123 Est GFR (MDRD) Non-Af 102 BUN/Creatinine Ratio 9.2 L Glucose 98 Calcium 9.4 Total Bilirubin 0.60 AST 19 ALT 17 Alkaline Phosphatase 87 Total Protein 7.3 Albumin 3.5 Globulin 3.8 Albumin/Globulin Ratio 0.9 Lipase 199 H Radiography Diagnostic Testing: Clinical Impression(s) from Imaging Studies Abdomen/Pelvis CT 03/22/24 08:40 IMPRESSION: 1. Minimal subtle peripancreatic stranding in the distal body and tail of the pancreas. Correlation with lab values is recommended to rule out early pancreatitis. 2. Small cystic lesion in the pancreas could represent pancreatic pseudocyst. Cystic tumor cannot be excluded. Follow-up examination in 6 months is recommended. Electronically Signed: Tomasz Bell MD at 13:04 EDT , CT scan of the abdomen pelvis was obtained. There is minimal subtle peripancreatic stranding in the distal body and tail of the pancreas. There is a small cystic lesion in the pancreas that could be pancreatic pseudocyst or a cystic tumor. Radiologist recommended follow-up examination in 6 months. This was interpreted by the radiologist was also independently reviewed by myself. Treatment and Re-Evaluation :: Patient was given IV fluids, morphine, and Zofran. Patient was having difficulty keeping oral contrast down for her abdominal CT. Patient was given a dose of Reglan. Patient was advised of her findings. Since her lipase is less than 3 times the upper limit of normal, I feel the patient is able to be discharged home. Patient was instructed to start with a liquid diet and advance as tolerated. Patient was given a prescription for a short course of Ione and a prescription for Zofran. Patient was instructed to follow-up with her primary care physician in 3 to 5 days. Patient was instructed return if worse in any way. Patient understood and was agreeable with the plan. All questions were answered. Discharge Plan Triage Chief Complaint: Abd Pain ED Provider: Randy Moreno Dx/Rx/DC Orders Clinical Impression: Pancreatitis, Nausea & vomiting Instructions: ED Pancreatitis Prescriptions: New hydrocodone-acetaminophen [hydrocodone-acetaminophen] 5-325 mg tablet 1 tab PO Q6H PRN PRN (Reason: Pain) 3 Days Qty: 10 0RF ondansetron [ondansetron] 4 mg tablet,disintegrating 4 mg PO Q8H PRN PRN (Reason: Nausea) Qty: 10 0RF No Action pantoprazole [Protonix] 40 mg tablet,delayed release (DR/EC) 40 mg PO DAILY Qty: 10 0RF hydroxyzine HCl 50 mg tablet 50 mg PO Q8H Patient Comments: Take 1 to 2 tablets by mouth every 6 hours as needed for anxiety. buspirone 5 mg tablet 5 mg PO BID trazodone 100 mg tablet 100 mg PO QHS lisinopril 10 mg tablet 10 mg PO DAILY Primary Care Provider: Liborio Arceo Referrals: Liborio Arceo MD [Primary Care Provider] -
--- NOTE | 2024-03-22 08:40 | CT_ITS ---
STUDY: CT ABDOMEN AND PELVIS WITH CONTRAST REASON FOR EXAM: Female, 48 years old. Abdominal pain -- IV PO Contrast RADIATION DOSAGE (If Supplied By Facility): CTDIvol = ( 13.24 ) mGy, DLP = ( 666.90 ) mGycm TECHNIQUE: Oral and amp;amp; IV Gastrografin and amp;amp; 100mL Isovue-300 was administered. Transaxial images were obtained from the dome of the diaphragm to the symphysis pubis. Multiplanar coronal and sagittal images were reformatted. Individualized Dose Optimization Techniques Were Used For This CT. COMPARISON: Prior study dated: 11/18/2023 FINDINGS: The visualized lung bases are unremarkable. The visualized portions of the heart are within normal limits. No focal lesion is identified in the liver. Normal gallbladder and extrahepatic biliary system. Normal spleen. 1.3 cm cystic lesion in the head of the pancreas. Possible minimal subtle peripancreatic stranding near the tail of the pancreas. Normal bilateral adrenal glands. Normal visualized stomach. Normal in caliber small bowel loops. No evidence of acute diverticulitis. The appendix is visualized and appears normal. There is diffuse atherosclerotic calcification of the abdominal aorta, without a demonstrated aneurysm. No retroperitoneal adenopathy. Small bilateral renal cysts appears to be simple for which no further follow-up exam. No evidence of hydronephrosis. Normal urinary bladder. There is a small umbilical hernia containing fat. Unremarkable osseous structures. CT/Abdomen/Pelvis WITH Contrast IMPRESSION: 1. Minimal subtle peripancreatic stranding in the distal body and tail of the pancreas. Correlation with lab values is recommended to rule out early pancreatitis. 2. Small cystic lesion in the pancreas could represent pancreatic pseudocyst. Cystic tumor cannot be excluded. Follow-up examination in 6 months is recommended. Electronically Signed: Tomasz Bell MD at 13:04 EDT ,
[2024-03-22] MEDS: 0.9% Normal Saline (1000mL) 1,000 ML 1000 ML IV (08:58)
[2024-03-22] MEDS: Ondansetron 4 MG/2 ML Vial IV (08:58)
[2024-03-22] MEDS: Morphine 4 MG/ML Syringe IV (08:58)
--- NOTE | 2024-03-22 09:06 | ED.RN ---
continues to be naueous unable to drink contast at this time. given zofran,
[2024-03-22 09:11] LABS: Absolute Lymphocyte Count 1.82 X10^3/uL (0.83-4.51); Absolute Neutrophil Count 8.4 X10^3/uL (2.0-7.7); Basophil# 0.05 X10^3/uL; Basophil% 0.4 % (0-1); Eosinophil# 0.16 X10^3/uL; Eosinophils% 1.4 % (0-5); Hematocrit 41.5 % (37-47); Hemoglobin 14.2 g/dL (12.0-15.0); Lymphocyte # 1.82 X10^3/ul (0.83-4.51); Lymphocyte % 16.1 % (19-41); Mean Corp Hgb Conc 34.2 g/dL (32-36); Mean Corpuscular Hgb 32.3 pg (27.0-32.0); Mean Corpuscular Volume 94.5 fL (81-99); Mean Platelet Vol. 11.2 fl (6.2-12.0); Monocyte# 0.82 X10^3/uL; Monocyte% 7.3 % (0-10); NRBC Flagged by Analyzer 0 % (0-5); Neutrophil # 8.39 X10^3/uL (2.7-7.7); Neutrophil % 74.4 % (47-70); Platelet Count 194 K/mm3 (150-450); RBC Distribution Width CV 12.1 % (11.6-14.6); RBC Distribution Width SD 42.5 fl (35.1-43.9); Red Blood Count 4.39 M/mm3 (4.2-5.4); White Blood Count 11.3 K/mm3 (4.4-11.0)
[2024-03-22 09:27] LABS: ALB/GLOB Ratio 0.9 RATIO (0.9-2.4); AST(SGOT) 19 U/L (15-37); Alanine Aminotransfer ALT/SGPT 17 U/L (13-56); Albumin, Serum 3.5 g/dL (3.2-5.0); Alkaline Phosphatase 87 U/L (45-117); Anion Gap 10 (5-15); BUN 6 mg/dL (7-18); BUN/Creat Ratio 9.2 RATIO (10-20); Calcium,Total 9.4 mg/dL (8.5-10.1); Chloride 97 mmol/L (98-107); Creatinine, Serum 0.65 mg/dL (0.55-1.02); EST Glomerular Filtration Rate 102 mL/min (>60); Est Glom Filt Rate - Afr Amer 123 mL/min (>60); Estimated Creatinine Clearance 93.17 ml/min; Globulin 3.8 g/dL (2.2-4.2); Glucose 98 mg/dL (74-106); Lipase 199 U/L (13-75); Potassium 3.7 mmol/L (3.5-5.1); Protein, Total 7.3 g/dL (6.4-8.2); Sodium Level 132 mmol/L (136-145)
[2024-03-22 10:18] VITALS: BP 154/90; PULSE 89; RESP 16; O2SAT 99
[2024-03-22] MEDS: Metoclopramide 10 MG/2 ML Vial IV (10:55)
--- NOTE | 2024-03-22 10:57 | ED.RN ---
pt refused shot, new order recieved, explained pain meds and bowel correlation
--- NOTE | 2024-03-22 11:05 | ED.RN ---
discussed need for CT to see whats going on so can better treat pain and sx.
[2024-03-22 12:00] VITALS: BP 142/87; PULSE 79; RESP 16; TEMP 36.4; O2SAT 98
[2024-03-22 13:44] LABS: Bacteria 0 SEEN /hpf (None Seen); Mucous, Urine 0 SEEN /hpf (<or=2+); Red Blood Cells-Urine 0 SEEN /hpf (0-5); Squamous Epithelial Cells - UA 0 SEEN /hpf (5-10); White Blood Cells 0 SEEN /hpf (0-5)
[2024-03-22 13:46] LABS: Color, Urine Yellow (Yellow); Glucose, Dipstick Normal (Normal); Ketone-Dipstick 15 mg/dl (Negative); Leukocyte Esterase-Dipstick Negative /ul (Negative); Nitrite-Dipstick Negative (Negative); Occult Blood-Urine 150 /ul (Negative); Protein-Dipstick 15 mg/dl (Negative); Specific Gravity, Urine 1.005 (1.002-1.030); Urine Bilirubin Dipstick Negative (Negative); Urine Clarity Clear (Clear); Urine Urobilinogen Normal (Normal); Urine pH 6.5 (5.0 - 8.0)
== END 2024-03-22 14:16 | disposition home or self-care (01) ==
LOC: ED 08:51
PROVIDERS: Emergency Provider Emergency Medicine; PCP Family Medicine; Visit Provider Emergency Medicine
DX: K85.90 Acute pancreatitis without necrosis or infection, unspecified (principal); R11.2 Nausea with vomiting, unspecified; F17.210 Nicotine dependence, cigarettes, uncomplicated; F17.290 Nicotine dependence, other tobacco product, uncomplicated; Z79.899 Other long term (current) drug therapy
CPT/HCPCS: 74177; 80053; 81001; 83690; 85025; 96361; 96372; 96374; 96375; 99283; J7030; Q9967; A4216; J2405